=== PATIENT | male | born 1975 | race Caucasian/White ===

== ENCOUNTER 2023-05-23 14:47 | Inpatient (IN) | payer OTHER, SELFPAY ==
[2023-05-23] VITALS (26 sets, daily range): BP systolic 78–158; BP diastolic 25–131; BMI 19.3; BMI 16.9
--- NOTE | 2023-05-23 12:28 | EDRN ---
Dr. Maya in room w/ pt at this time.
[2023-05-23 12:31] LABS: Glucose - Point of Care 152 mg/dl (70-99)
[2023-05-23] MEDS: DILAUDID 0.5 MG IV (12:37)
[2023-05-23] MEDS: COMPAZINE 10 MG IV (12:39)
[2023-05-23 12:41] LABS: ALT (SGPT) 38 U/L (0-50); AST (SGOT) 83 U/L (17-59); Albumin 4.8 g/dl (3.5-5.0); Alcohol None Detected; Alkaline Phosphatase 92 U/L (38-126); Blood Urea Nitrogen 29 mg/dl (9-20); Calcium 10.5 mg/dl (8.4-10.2); Carbon Dioxide 22 mmol/L (22-30); Chloride 105 mmol/L (98-107); Glucose 174 mg/dl (70-99); Potassium 3.9 mmol/L (3.5-5.1); Sodium 140 mmol/L (135-145); Total Bilirubin 1.5 mg/dl (0.2-1.3); Total Protein 8.7 g/dl (6.3-8.2); eGFR > 60.00
[2023-05-23 12:42] LABS: % Basophils 0.1 % (0-2); % Eosinophils 0.1 % (0-6); % Immature Granulocytes 1.2 % (0-0.5); % Lymphocytes 6.2 % (20.5-51.1); % Monocytes 8.5 % (1.7-9.3); % Neutrophils 83.9 % (42.2-75.2); Absolute Immature Granulocytes 0.3 10^3/uL (0-0.05); Absolute Lymphocytes 1.3 10^3/uL (1.2-3.4); Absolute Monocytes 1.8 10^3/uL (0.1-0.6); Absolute Neutrophils 17.7 10^3/uL (1.4-6.5); Hematocrit 44.9 % (39.0-52.0); Hemoglobin 15.6 g/dL (13.0-18.0); Mean Corp Hgb Conc. 34.7 g/dL (33.0-37.0); Mean Corpuscular Hgb 28.6 pg (27.0-31.0); Mean Corpuscular Volume 82.2 fL (80.0-94.0); Mean Platelet Volume 10.5 fL (7.4-10.4); Nucleated Red Blood Cells % 0 % (-); Platelet Count 406 10^3/uL (130-400); Red Blood Cell Count 5.46 10^6/uL (4.70-6.10); Red Cell Dist. Width 14.1 % (11.5-14.5); White Blood Cell Count 21.1 10^3/uL (4.8-10.8)
[2023-05-23] MEDS: PROTONIX IV 80 MG IV (12:48)
[2023-05-23] MEDS: SANDOSTATIN 50 MCG IV (12:50)
[2023-05-23] MEDS: PROTONIX 250 IV (12:51)
--- NOTE | 2023-05-23 13:20 | ED.GENMED ---
History of Present Illness
General
Chief Complaint: Abdominal Symptoms
Source: patient
Exam Limitations: none
Time Seen by Provider: 05/23/23 12:25
Nursing documentation reviewed up to this point in time: agreed with
Travel History
Have you had any contact with someone who has COVID-19?: No
Do you have any symptoms of coronavirus? Fever > 100 degrees, chills, cough, shortness of breath, sore throat, loss of taste or smell, muscle aches, or headache?: No
History of Present Illness
History of Present Illness:
Patient with history of diabetes, presents to ED accompanied by nursing home guards secondary to persistent abdominal pain radiating to the back, associated with multiple vomiting episodes since yesterday. Patient states that his vomitus appeared to be
'dark and red'. Denies chest pain or shortness of breath. Patient also states that he he feels as though he is going through withdrawal, with last use of fentanyl, Xanax, and alcohol yesterday. Patient has had similar symptoms in the past related
to withdrawal, but states that his symptoms are more severe and he has never noted blood in the past. Denies bloody bowel movements. Denies trauma. Denies fever or chills. Denies recent illness. Denies recent change in medications or diet.
Denies dizziness. Denies previous history of cardiac disease. Patient does smoke daily.
Review of Systems
Review of Systems
Allergies reviewed?: Yes
All Other Systems: ROS reviewed and negative except as documented in HPI and ROS
Constitutional: Reports no symptoms
EENT: Reports no symptoms
Respiratory: Reports no symptoms; Denies trouble breathing
Cardiac: Reports no symptoms; Denies chest pain
ABD/GI: Reports abdominal pain, nausea and vomiting
: Reports no symptoms
Musculoskeletal: Reports no symptoms
Skin: Reports no symptoms
Neurological: Reports no symptoms; Denies headache, weakness or numbness
Phy Exam
Physical Exam
Physical Exam:
Physical Exam
General: moderate distress, acutely ill. afebrile. cachetic. tachycardic.
Head: nc/at. eomi
Neck: supple. no meningeal signs.
Heart: tachycardic, no murmur. equal radial pulses.
Lungs: no acute respiratory distress. clear bilaterally
Abdomen: normal bowel sounds. mild diffuse tenderness without distention. rectal exam: brown stool, heme negative
Neuro: alert and oriented. no focal neurological deficits
Skin: no rash
Psychiatric: well kept. interactive and cooperative
Extremities: no edema. no calf tenderness.
Course
Orders/Labs/Results
Orders:
Orders
05/23/23 Lunch
NPO
Allow oral meds: Yes
Allow clear liquids: No
NPO with Ice Chips: No
05/23/23 12:02
Electrocardiogram (*1) Urgent
Reason for Study: Chest Pain
Cardiac Monitoring- Treatment ONCE
EKG- Treatment ONCE
IV Insert/Care/Rem.- Treatment PRN
05/23/23 12:15
Alcohol Urgent
Complete Blood Count/With Diff Urgent
Comprehensive Metabolic Panel Urgent
Lipase Urgent
Comment: ADD ON
Magnesium Urgent
Comment: ADD ON
Troponin I Urgent
05/23/23 12:26
Add On- LAB Urgent
Tests Added?: magnesium, lipase
05/23/23 12:33
Prochlorperazine [Compazine] 10 mg .ROUTE .STK-MED ONE
05/23/23 12:36
HYDROmorphone [Dilaudid] 0.5 mg IV NOW STA
05/23/23 12:37
HYDROmorphone [Dilaudid] 0.5 mg IV NOW STA
Octreotide Acetate [Sandostatin] 600 mcg 0.9% Sodium Chloride 500 ml [Nss] 500 ml IV NOW
Octreotide [Sandostatin] 50 mcg IV NOW STA
Pantoprazole [Protonix IV] 80 mg IV NOW STA
Prochlorperazine [Compazine] 10 mg IV NOW STA
05/23/23 12:38
Pantoprazole 200 mg/250 ml Nss [Protonix] 200 mg in 250 ml IV NOW
05/23/23 12:43
Octreotide [Sandostatin] 50 mcg .ROUTE .STK-MED ONE
Pantoprazole [Protonix IV] 80 mg .ROUTE .STK-MED ONE
05/23/23 13:00
Electrocardiogram (*1) Urgent
Reason for Study: Chest Pain
EKG- Treatment ONCE
05/23/23 13:11
CT Chest/abd/pelvis Angio W/wo Urgent
Comment:
Reason For Exam: severe abdominal pain
05/23/23 13:29
Echo 2D MMode Color/Doppler Urgent
Reason for Study: Abnormal troponin
05/23/23 13:33
Fentanyl Citrate/Pf [Sublimaze] 50 mcg IV NOW STA
05/23/23 13:43
Type+Screen Routine
BBK Wristband Number:
05/23/23 14:06
Piperacillin/Tazo 3.375 Gram [Zosyn] 3.375 gram in 50 ml IV NOW
Vancomycin 1 Gram/200 ml [Vancocin] 1 gram in 200 ml IV NOW
05/23/23 14:33
COVID-19 Antigen Routine
Source: Nasal Swab
05/23/23 14:34
Admit/Transfer Patient As Directed
Co-Sign Provider:
Level of Care: Inpatient admission
Assign to:: IMU- Intermediate Care
Physician / Group: Aiden Turcios
Diagnosis: Drug withdrawal, ACS, hematemesis
Reason for Hospitalization: Drug withdrawal, ACS, hematemesis
Expected length of stay greater than two midnights?: Yes
ELOS- Estimated Length of Stay in days: 4
I certify the patient meets the requirements for IP care: Yes
05/23/23 14:36
Code Status As Directed
Resuscitation Status: Full Code
05/23/23 14:42
Heparin 1000 Units/500 ml [Heparin] 1,000 units in 500 ml .ROUTE .STK-MED
Lidocaine HCl/Pf [Xylocaine-Mpf 1% Vial] 50 mg .ROUTE .STK-MED ONE
Verapamil Injectable [Isoptin/Verapamil Injection] 5 mg .ROUTE .STK-MED ONE
05/23/23 14:43
Heparin Sodium,Porcine/Ns/Pf [Heparin 2000 Units/1000 ml] 2,000 unit in 1,000 ml .ROUTE .STK-MED
Nitroglycerin [Tridil] 1,500 mcg .ROUTE .STK-MED ONE
05/23/23 14:51
Blood Culture Q30M
ANGELICA Source: Blood/Venous
Specimen Description:
05/23/23 14:59
Hgba1c [Glycohemoglobin (HgbA1c)] Routine
Lactic Acid Q4H
Comment: CANCEL 2nd LACTIC ACID IF 1st LACTIC ACID IS LESS THAN 2
Blood Culture Q30M
ANGELICA Source: Blood/Venous
Specimen Description:
05/23/23 16:57
0.9% Sodium Chloride 1000 ml [Nss] 1,000 ml IV 100 mls/hr
0.9% Sodium Chloride [Nss (Preservative Free)] See Protocol IV PRN PRN
Acetaminophen [Tylenol] 650 mg PO Q4HPRN PRN
Buprenorphine [Subutex] 8 mg SL PRN PRN
Dextrose 50%-Water [Dextrose 50% Syringe] 12.5 grams IV [id number] PRN
FOLic ACID [Folvite] 1 mg 0.9% Sodium Chloride 50 ml [Nss] 50 ml IV DAILYPRN
Glucagon [GlucaGen] 1 mg IM PRN PRN
Lorazepam [Ativan] 1 mg IV Q1HPRN PRN
Lorazepam [Ativan] 1 mg IV Q2HPRN PRN
Lorazepam [Ativan] 2 mg IV Q1HPRN PRN
Ondansetron Injectable [Zofran] 4 mg IV Q6HPRN PRN
Thiamine Injection 200 mg IV Q8
05/23/23 16:57
Activity As Directed
Activity Level: As Tolerated
Bedside Glucose Monitoring As Directed
Frequency: AC&HS
Comment: Change to q6h if pt on TPN, tube feeding or not eating
Clinical Opioid Withdrawal Scale (COWS) .PRN
MSAS SCORE As Directed
MSAS Score 0-4: Repeat MSAS every 2 hours until 0-4 for three consecutive assessments, then every 4 hours x 48
hours.
MSAS Score 5-7: For MILD withdrawl symptoms. Repeat MSAS and RASS every 2 hours
MSAS Score 8-11: For MODERATE withdrawal symptoms. Repeat MSAS and RASS every 1 hour. Consider ICU or IMU
level of care.
MSAS Score > 11: For SEVERE withdrawal symptoms. Repeat MSAS and RASS every 1 hour. Notify provider, consider
ICU level of care.
MSAS Additional Instructions: If no improvement or no decrease in score from severe to moderate within 12
hours, consult psychiatry
MSAS Notify Provider: Notify provider if patient requires more than 10 mg of Lorazepam in eight hour period.
Pneumatic Compression Sleeves As Directed
Type: Knee high
Vital Signs As Directed
Frequency: Per unit guidelines
DX Deep Vein Thrombosis Video Routine
05/23/23 18:00
Clonidine [Catapres] 0.1 mg PO Q6
Insulin Aspart Corrective Low [Novolog Flexpen-Low Resistance] See Protocol SC Q6
05/23/23 18:25
INR [Prothrombin Time] Routine
Lactic Acid Q4H
Comment: CANCEL 2nd LACTIC ACID IF 1st LACTIC ACID IS LESS THAN 2
PTT Routine
05/23/23 19:31
Urine Drug Abuse Screen Routine
Date Specimen was Collected: 05/23/23
Time Specimen was Collected: 19:31
05/24/23 04:33
Complete Blood Count/No Diff IN AM
Comprehensive Metabolic Panel IN AM
05/24/23 08:00
FOLic ACID [Folvite] 1 mg PO DAILY
05/24/23 09:00
Buprenorphine [Subutex] 16 mg SL ONCE ONE
05/24/23 11:00
Buprenorphine [Subutex] 4 mg SL ONCE PRN PRN
05/25/23 06:00
Complete Blood Count/No Diff IN AM
Comprehensive Metabolic Panel IN AM
05/25/23 08:00
Buprenorphine [Subutex] See Dose Instructions SL DAILY
05/26/23 06:00
Complete Blood Count/No Diff IN AM
Comprehensive Metabolic Panel IN AM
05/26/23 20:00
Thiamine HCl [Vitamin B1] 100 mg PO BID
Abnormal Lab Results
05/23/23 05/23/23
12:15 12:29
WBC 21.1 H 10^3/uL
(4.8-10.8)
Plt Count 406 H 10^3/uL
(130-400)
MPV 10.5 H fL
(7.4-10.4)
Abs Immat Gran (auto) 0.3 H 10^3/uL
(0-0.05)
Absolute Neuts (auto) 17.7 H 10^3/uL
(1.4-6.5)
Absolute Monos (auto) 1.8 H 10^3/uL
(0.1-0.6)
Immature Gran % 1.2 H %
(0-0.5)
Neutrophils % 83.9 H %
(42.2-75.2)
Lymphocytes % 6.2 L %
(20.5-51.1)
BUN 29 H mg/dl
(9-20)
Creatinine 0.6 L mg/dL
(0.7-1.3)
Glucose 174 H mg/dl
(70-99)
Calcium 10.5 H mg/dl
(8.4-10.2)
Total Bilirubin 1.5 H mg/dl
(0.2-1.3)
AST 83 H U/L
(17-59)
Troponin I 6.860 H* ng/ml
Total Protein 8.7 H g/dl
(6.3-8.2)
POC Glucose 152 H mg/dl
(70-99)
05/23/23 12:15
05/23/23 12:15
Vital Signs
Initial and Last Documented VS:
Initial Vital Signs
Temp
97.5 F
05/23/23 11:56
Last Documented Vital Signs
Temp Pulse Resp BP Pulse Ox
100.4 F H 119 37 119/98 98
05/24/23 08:05 05/24/23 07:30 05/24/23 07:30 05/24/23 07:30 05/24/23 07:30
MDM/Problems Addressed
MDM/Problems Addressed:
Patient evaluated immediately upon arrival in his room. Patient found to be uncomfortable, tachycardic, and complaining of severe mid abdominal pain radiating to the back, with nausea sensation. History and exam concerning for active withdrawal
versus GI bleed versus dissection versus ACS.
Patient started on Protonix and octreotide drip, as well as administration of pain medication and IV fluids.
Initial EKG with tachycardia along with ST elevation noted on anterior leads. However, secondary to clinical concern for dissection without any acute chest pain, STEMI alert not activated.
Stat CT angiogram of chest abdomen pelvis ordered. Discussed with cardiology, , in light of elevated troponin. Will order bedside echocardiogram.
CT angio chest/abd/pel: no dissection, with possible b/l pneumonia. Abx ordered.
Blood cx pending.
Bedside echo completed.
Pt evaluated in ED by and (hatchery laborer) - will proceed to SPEECH PATHOLOGY TEACHER.
Critical care statement: A total of 100 minutes of critical care time was provided for this patient. This includes management of unstable vital signs, evaluation of the patient at bedside, reviewing the patient's pertinent medical records,
discussion with consultants, review of old EKGs and review of pertinent medical records. This time with separate from time utilized to perform the aforementioned documented procedures
*Critical Care Note
Total Time (30-74mins, 75-104mins- exclusive of procedures): 100 min
ED Attending Note
-
Portions of this chart may have been created with voice recognition software.� Occasional wrong word or��sound alike� substitutions may have occurred due to the inherent limitations of voice recognition software.
Discharge Plan
Departure
Patient Disposition: Admit
Date of Disposition: 05/23/23
Time of Disposition: 13:50
Presentation/result/management discussed w/ accepting MD/DO: Hospitalist
Condition: Critical
Discharge Problem:
GI bleed, Abdominal pain, Abnormal cardiac enzyme level
Interventions
Interventions:
*Risk Screen - Suicide Last Done: 05/23/23 11:49
*General Assessment Last Done: 05/23/23 11:49
*Neglect/Abuse Screening Last Done: 05/23/23 11:49
ED- Fall Risk Assessment Last Done: 05/23/23 13:00
*ED COVID-19 Vaccine History Last Done: 05/23/23 12:30
*Nursing Disposition Last Done: 05/23/23 15:10
AC-Yarshu-Cfbqbakfui Assessment Last Done: 05/23/23 13:00
ED- Neurological Assessment Last Done: 05/23/23 13:00
ED-Psychological Assessment Last Done: 05/23/23 15:00
Discharge Date and Time
Discharge Date/Time: 05/23/23 15:10
[2023-05-23 13:21] LABS: Lipase 158 U/L (23-300)
[2023-05-23] MEDS: SANDOSTATIN 500.600000000000023 MCG IV (13:35)
--- NOTE | 2023-05-23 13:42 | CON.CAR ---
Addendum entered and electronically signed by Chidi Dick MD 05/23/23 16:16:
I saw and examined the patient.
The ACCOUNT MAINTENANCE REPRESENTATIVE's note was reviewed and I agree with the note.
Comment: 47-year-old male with hypertension and type 2 diabetes mellitus who presented to the emergency department with a chief complaint of abdominal pain.� Initial ECG concerning for acute ischemia, CT r/o dissection, taken to laboratory director and found
to have no obstructive CAD. The etiologies for his severe NICMO are possible stress induced (Takotsubo AGRI BUSINESS AGENT) vs alcohol or other drug related AGRI BUSINESS AGENT vs idiopathic NICMO. However, his LVEDP was severely elevated in the laboratory director and a [place] catheter
was placed.
- IV diuresis with [place]
- GDMT when able to tolerate
- Severe abdominal/back pain and withdrawal per primary
Original Note:
Consultation
Consultation Request
Date/Time Consultation Requested: 05/23/23 13:45
Date/Time Consultation Performed: 05/23/23 13:45
Requesting Provider: Dr. Maya
Performing Provider: DEMETRIUS Lindsay from Dr. Dick
Reason for Consultation: Abnormal troponin
Medical History
-
Chief Complaint: Abdominal pain
History of Present Illness:
Toribio Gross is a 47-year-old male with hypertension and type 2 diabetes mellitus who presented to the emergency department with a chief complaint of abdominal pain. His abdominal pain is located at the umbilicus. He was en route to nursing home. He
states his abdominal pain started 2 days ago and it was mild in severity. It is now severe and radiates into his back. He endorses associated hematemesis. He denies coffee-ground like emesis. He has been smoking for the past 30 years. In
addition to this he has been abusing fentanyl, Xanax, and consumes alcohol multiple times per week. EKG with anterior ST elevation. Initial troponin greater than 6. He did not have any chest pain. CT did not show dissection but did show
bilateral pneumonia. He reports he has had narcotic and benzodiazepine withdrawal before and did not have abdominal pain.
Past Medical History
Past Medical History: HTN and IDDM
Social History
Tobacco: Smoker (1/2-1 PPD x 30 years)
Alcohol: Daily
Drug: Narcotics (Fentanyl) and Other (Benzodiazepine)
Living: Other (En route to nursing home when he came to ER)
Family History
Family History: Reviewed & Not Pertinent (Denies early CAD and SCD. Father with valve replacement in 6th decade.)
Allergies / Home Medications
Allergy/AdvReac Type Severity Reaction Status Date / Time
No Known Allergies Allergy Unverified 05/23/23 12:40
Medication Instructions Recorded Confirmed Type
Novolin R FlexPen 0 - 20 unit SC AC Diabetes 05/23/23 History
clonidine HCl 0.2 mg tablet 0.2 mg PO Q6HPRN PRN withdrawal 05/23/23 05/23/23 History
symptoms
ibuprofen 600 mg tablet 600 mg PO TIDPRN PRN moderate pain 05/23/23 05/23/23 History
Review of Systems
-
History Source: Patient
All other systems: Negative unless noted
Cardiac: No Symptoms
Abdomen/GI: Abdominal Pain, Nausea and Vomiting
Physical Exam
Vital Signs
Temp Pulse Resp BP Pulse Ox
97.5 F 118 25 118/90 90
05/23/23 11:56 05/23/23 13:20 05/23/23 13:20 05/23/23 13:20 05/23/23 13:15
Lab Results
05/23/23 12:15
05/23/23 12:15
Troponin I 6.860 ng/ml H* 05/23/23 12:15
Physical Exam
General: Well Developed and Pain (abdominal [see HPI])
HEENT: Normocephalic, Anicteric and Moist Mucous Membranes
Respiratory: Rhonchi and Accessory Resp Muscle Use
Cardiac: S1/S2 and Regular Rhythm; Negative Peripheral Edema
Breast: Deferred by me
GI: Soft, Non Tender, Non Distended and Normal Bowel Sounds
Rectal: Deferred by Provider
Genito-urinary: No Costovertebral Tender
Musculoskeletal: No Clubbing, No Cyanosis and No Edema
Skin: Warm, Dry and Other (scabbing to left anticubital)
Neuro: AO x 3
Hematologic/Lymphatic: No Lymphadenopathy
Psych: Calm
Impression / Plan
-
Acute hypoxic respiratory failure
-On supplemental O2
-CT with moderate bilateral lower lobe ground-glass opacities concerning for pneumonia versus aspiration
Abnormal troponin
-Chest pain free
-Initial troponin 6.860, trend with EKG
-Defer heparin until evaluated by GI
Cardiomyopathy, type unknown
-Formal TTE report pending, EF ~20%
-Does not appear volume overloaded on exam
-Ischemic evaluation timing to be determined
Abdominal pain with hematemesis
-H/H stable
-On octreotide and Protonix drips, per GI
HTN, follow BP
Type II DM, Hgba1c pending
Intravenous narcotic abuse, last used fentanyl yesterday, averages 6�8 bags daily, cessation recommended
Benzodiazepine abuse, cessation recommended
EtOH abuse
Data Reviewed
-
EKG: Report Reviewed by me (Sinus tachycardia, lateral T wave abnormality, rate 127; Sinus tachycardia, LVH, anterior ST abnormality)
CT Scan: Report Reviewed by me (As above)
Labs: Labs Reviewed by me
[2023-05-23] MEDS: SUBLIMAZE 50 MCG IV (13:45)
--- NOTE | 2023-05-23 13:59 | EDRN ---
Francis JARAMILLO and Dr. Dick from cardiology were in to see pt. Pt is presently having an echocardiogram at [facility] at this time. Dr. Maya states pt has PNA and low EF seen so far on testing.
--- NOTE | 2023-05-23 14:24 | EDRN ---
[facility] Dr. Maya
--- NOTE | 2023-05-23 14:34 | EDRN ---
Dr. Chris in [facility] w/ pt at this time
--- NOTE | 2023-05-23 14:41 | CON.GI ---
Addendum entered and electronically signed by Lou Reynolds Do, MD 05/23/23 15:44:
I saw and examined the patient.
The EMPLOYMENT EVALUATOR/CASE MANAGER's note was reviewed and I agree with the note.
Comment: Jorge is a 47yo male prisoner with h/o heroin/fentanyl abuse who was brought in for abd pain, hematemesis and chest pains. He c/o of abdominal pain with retching and vomiting over 20 times prior to admission. He reports some bloody mucous
came up. He denies using anticoagulation but uses motrin on daily basis. He has never had EGD/colon. Exam vitals tachycardia pale cachetic M sleepy but arousable. diffuse TTP. labs reviewed Hbg 15.6. Troponin is 6 UTox pending
Impression
- Nausea/vomiting with hematemesis
Hbg is 15 suspect esophagitis or MWT in setting of drug withdrawal
CT with large stool burden may be contributor
- Polysubstance abuse
- Elevated troponin and depressed EF
- Motrin use daily
- abdominal pain
- Cachexia
Recommendations
- Agree with protonix gtt
- Serial H/H
- 2 large bore IV
- Ok to use heparin or AC if need in setting of acute coronary syndrome
- Stop octreotide drip as imaging/CT without signs of cirrhosis or varices
- NPO for now
Will follow with you. Case d/w ED physician
Original Note:
Consultation
-
Date/Time Consultation Requested: 05/23/23 1400
Date/Time Consultation Performed: 05/23/23 1500
Requesting Provider: Trevor Maya MD
Performing Provider: DEMETRIUS Hanley, Lou Chris MD
Reason for Consultation: vomiting blood, withdrawal
Medical History
Chief Complaint / HPI
Chief Complaint: abdominal pain
History of Present Illness:
Pt is a 47yo with hx polysubstance abuse with recent Fentanyl and heroin use 2 days ago, prior lumbar lami, cervical surgery for MRSA infection, DM with presentation to ER from [facility] with multiple symptoms of abdominal pain,
hematemesis, tachycardia, leukocytosis and elevated troponin. In reviewing with patient no hx prior liver disease. He does admits to multiple episodes of vomiting blood. He was taking Motrin 600mg BID for last 2 years. He also has abdominal
pain 10/10 for past 2 days. No similar pain in past.
He admits to occasional dysphagia since neck surgery and GERD with tums PRN. He denies diarrhea, constipation or rectal bleeding. No hx EGD or colonoscopy in past. No prior GI bleed.
Past Medical History
Past Medical History: HTN, NIDDM and Other (polysubstance abuse, )
Past Surgical History: Orthopedic (lumbar lami, cerical fusion with hardware in place due to MRSA )
Social History
Tobacco: Smoker
Alcohol: None
Drug: Other (recent Heroin/fentanyl use )
Employment: Disabled
Family History
Family History: Other (father with heart value problem)
Allergies / Home Medications
Allergy/AdvReac Type Severity Reaction Status Date / Time
No Known Allergies Allergy Unverified 05/23/23 12:40
Medication Instructions Recorded
clonidine HCl 0.2 mg tablet 0.2 mg PO Q6HPRN PRN withdrawal 05/23/23
symptoms
ibuprofen 600 mg tablet 600 mg PO TIDPRN PRN moderate pain 05/23/23
insulin NPH-regular 70-30 U-100 10 unit SC BID 05/23/23
insulin 100 unit/mL subcutaneous
pen (Novolin 70-30 FlexPen U-100
Insulin)
Review of Systems
-
History Source: Patient
Constitutional: Reports Weight Loss and Fatigue
EENT: Reports No Symptoms
Cardiac: Reports Chest Pain
Abdomen/GI: Reports Abdominal Pain, Nausea and Vomiting (hematemesis)
: Reports No Symptoms
Musculoskeletal: Reports Other (chronic neck pain )
Neurological: Reports Weakness
Endocrine: Reports No Symptoms
Hematologic/Lymphatic: Reports Bleeding
Vital Signs
Temp Pulse Resp BP Pulse Ox
97.5 F 118 25 118/90 90
05/23/23 11:56 05/23/23 13:20 05/23/23 13:20 05/23/23 13:20 05/23/23 13:15
Physical Exam
Exam
General: Other (thin and cachetic in appearance with temporal waisting-- ill appearing with shortness of breath and tachycardia)
HEENT: Normocephalic
Respiratory: Clear
Cardiac: Other (tachy)
GI: Soft and Non Tender
Genito-urinary: No Costovertebral Tender
Musculoskeletal: No Clubbing and No Cyanosis
Neuro: Awake, Alert and AO x 3
Psych: Calm
Results
WBC 21.1 10^3/uL (4.8-10.8) H 05/23/23 12:15
Hgb 15.6 g/dL (13.0-18.0) 05/23/23 12:15
Hct 44.9 % (39.0-52.0) 05/23/23 12:15
MCV 82.2 fL (80.0-94.0) 05/23/23 12:15
Plt Count 406 10^3/uL (130-400) H 05/23/23 12:15
Absolute Neuts (auto) 17.7 10^3/uL (1.4-6.5) H 05/23/23 12:15
Sodium 140 mmol/L (135-145) 05/23/23 12:15
Potassium 3.9 mmol/L (3.5-5.1) 05/23/23 12:15
Chloride 105 mmol/L (98-107) 05/23/23 12:15
Carbon Dioxide 22 mmol/L (22-30) 05/23/23 12:15
BUN 29 mg/dl (9-20) H 05/23/23 12:15
Creatinine 0.6 mg/dL (0.7-1.3) L 05/23/23 12:15
Calcium 10.5 mg/dl (8.4-10.2) H 05/23/23 12:15
Total Bilirubin 1.5 mg/dl (0.2-1.3) H 05/23/23 12:15
AST 83 U/L (17-59) H 05/23/23 12:15
ALT 38 U/L (0-50) 05/23/23 12:15
Alkaline Phosphatase 92 U/L (38-126) 05/23/23 12:15
Lipase 158 U/L (23-300) 05/23/23 12:15
Diagnostic Image Results:
05/23/23CT Chest/abd/pelvis Angio W/wo
IMPRESSION: No evidence of aortic dissection.
Moderate bilateral lower lobe groundglass opacities concerning for pneumonia versus aspiration
Moderate air in the SVC probably due to recent venous access
Moderate fecal material throughout the colon
Prior GI Procedures:
EGD: pt did not recall
Colonoscopy: pt did not recall
Assessment / Plan
-
Pt is a 47yo with hx polysubstance abuse with recent prior lumbar lami, cervical surgery for MRSA infection, DM with presentation to ER from [facility] with multiple symptoms of abdominal pain, hematemesis, tachycardia, leukocytosis and
elevated troponin. In reviewing with patient no hx prior liver disease. He does admits to multiple episodes of vomiting blood. He was taking Motrin 600mg BID for last 2 years. He also has abdominal pain 10/10 for past 2 days. No similar pain
in past.
-hematemesis prior to admission
-polysubstance abuse with recent Fentanyl and heroin use 2 days ago
-increased troponin on admission with ST elevation
-hypoxemia -PNA vs aspiration on imaging
-leukocytosis/tachycardia/elevated lactate
-elevated LFT's
-wt loss/cachexia
other medical problems:
MRSA with cervical spine surgery and hardware in place with chronic pain and NSAID use daily
-lumbar lami
-DM type 2
PLAN:
Etiology of symptoms with hematemesis related to MW tear with vomiting and withdrawal, esophagitis, PUD, vs other--less likely EV with no prior hx underlying liver disease, normal platelet and albumin, INR currently pending
plan for laborer sawmill now with ST changes and elevated trop
await drug screen
PPI gtt/octreotide started in ER
consider eventual EGD but hold for now with acute cardiac issues and will need to be medically stable to proceed-- sooner if continued vomiting
blood cx pending with leukocytosis
LFT elevation likely related to substance abuse cont to trend, add hepatitis panel in AM
NSAID, heroin, fent abstinence
NPO
cont abx for possible PNA on imaging
rx for withdrawal per medical team
will follow
-
-
Thank you for consultation and allowing me to participate in the patient's care. Please call the superintendent gas distribution GI physician during the after hours with any questions or concerns.
--- NOTE | 2023-05-23 14:43 | HPS.HSE ---
Addendum entered and electronically signed by Aiden Turcios MD 05/23/23 14:59:
Correction : no abx provided, to be started after blood culture collected
Original Note:
Family Physician
-
Family Physician: * NONE
Chief Complaint
-
Chest discomfort/shortness of breath/abdominal pain/nausea/vomiting
History of Present Illness
Patient is a 47-year-old old male with history of insulin-dependent diabetes mellitus, history of IVDA with fentanyl, alcohol and tobacco abuse was brought into ER after patient having new onset of chest discomfort/shortness of breath/abdominal
pain/nausea/vomiting. Patient was being transferred to intermediate when symptoms started. Patient have been using IV fentanyl and injects himself in neck vein usually. Patient have used fentanyl 48 hours back. Denies of having any withdrawal problems
in the past. Patient started having new onset of sternal/upper back chest pain associated with nausea and vomiting. Patient in mild distress in ER rapid evaluation. Feeling short of breath and on oxygen through nasal cannula. No associated cough
or fever reported. Abdominal pain diffuse mainly in upper epigastric area. Had 1 episode of vomiting which was coffee-ground in color. Denies of having history of previous GI bleed in the past.
Evaluation in ER showing patient having elevated troponin of 6, cardiology evaluated emergently bedside with an echocardiogram. Patient planning to go to heart cath. GI has evaluated as well and cleared patient to be started on anticoagulation if
needed from cardiac perspective.
Medical History
Past Medical History
Past Medical History: Reports Other
Additional Past Medical History:
insulin-dependent diabetes mellitus, history of IVDA with fentanyl, alcohol and tobacco abuse
Past Surgical History: Reports Other
Social History
Tobacco: Smoker (Half pack/day)
Alcohol: Daily (5-6 drinks)
Drug: Narcotics (xanax) and IVDA (Fentanyl)
Family History
Family History: Not pertinent
Allergies / Home Medications
Allergies reflects when Allergies were last updated in [facility].
Home Medications with original date entered in [facility]
Allergy/Medication List:
Allergies
Allergy/AdvReac Type Severity Reaction Status Date / Time
No Known Allergies Allergy Unverified 05/23/23 12:40
Home Medications
clonidine HCl 0.2 mg tablet 0.2 mg PO Q6HPRN PRN withdrawal symptoms 05/23/23
ibuprofen 600 mg tablet 600 mg PO TIDPRN PRN moderate pain 05/23/23
insulin NPH-regular 70-30 U-100 insulin 100 unit/mL subcutaneous pen (Novolin 70-30 FlexPen U-100 Insulin) 10 unit SC BID 05/23/23
Review of Systems
-
A 12 point ROS was completed and negative except as noted: Yes
Physical Exam
Vital Signs
Vital Signs
Temp Pulse Resp BP Pulse Ox
97.5 F 118 25 118/90 90
05/23/23 11:56 05/23/23 13:20 05/23/23 13:20 05/23/23 13:20 05/23/23 13:15
Physical Exam
General: Appears in Distress and Cachectic
HEENT: Oxygen
Respiratory: Clear
Cardiac: S1/S2, Regular Rhythm and Tachycardia
GI: Soft, Non Distended, Normal Bowel Sounds and Tender; No Organomegaly
Musculoskeletal: No Clubbing, No Cyanosis and No Edema
Skin: No Rash
Neuro: Awake, Alert, Oriented and Nonfocal/grossly intact
Psych: Calm
Laboratory Results
-
05/23/23 12:15
05/23/23 12:15
Laboratory Results
Total Bilirubin 1.5 mg/dl (0.2-1.3) H 05/23/23 12:15
AST 83 U/L (17-59) H 05/23/23 12:15
ALT 38 U/L (0-50) 05/23/23 12:15
Alkaline Phosphatase 92 U/L (38-126) 05/23/23 12:15
Troponin I 6.860 ng/ml H* 05/23/23 12:15
Lipase 158 U/L (23-300) 05/23/23 12:15
Data Reviewed
-
Diagnostic Radiology: Image Personally Visualized and interpreted and Discussed with Patient
Lab Data: Labs Reviewed by me and Discussed with Patient
Impression/Plan
-
CTA chest/abd/pelvis
No evidence of aortic dissection.
Moderate bilateral lower lobe groundglass opacities concerning for pneumonia versus aspiration
Moderate air in the SVC probably due to recent venous access
Moderate fecal material throughout the colon

1. ACS/NSTEMI
-Acute onset of chest discomfort/shortness of breath abdominal pain and nausea vomiting
-EKG showing sinus tachycardia without significant ST segment elevation
-Bedside echo done by cardiology, official report pending
-CTA chest ruled out any dissection.
-Troponin of 6, follow-up troponin ordered
-Patient going to get emergent left heart catheterization.
-Discussed with GI and cleared to be started on anticoagulation/heparin drip if needed
2. Nausea and vomiting
Upper GI bleed
-Patient had coffee-ground emesis following transported to ER
-Current hemoglobin of 15, monitor
-Patient was started on pantoprazole and octreotide drip
-discussed with GI and to be monitored.
3. IV drug use
Opioid withdrawal
-Patient uses IV fentanyl. Injects himself in neck veins. Hal on both upper and lower extremity on exam as well
-Urine drug screen ordered
-Last used 48 hours back. COWS protocol with buprenorphine dose ordered
-Awaiting tizanidine with cardiac issues, clonidine with hold parameters ordered
4. Leukocytosis without fever
Possible aspiration pneumonitis
-Rule out any bacteremia with history of IV drug use
-2 sets of blood culture ordered (already got abx)
-CT chest showing bilateral basal infiltrate. Cover for possible aspiration pneumonitis with Zosyn
5. Alcohol abuse
-Monitor for alcohol withdrawal with MSAS/Ativan protocol ordered
6. IDDM
-Patient on Novolin 70/30 10 units twice daily at home. Compliance questionable
-Check globin A1c in morning
-Maintain on insulin sliding scale with further addition of Lantus if patient glucose elevated.
7. Cachectic
-Suspecting mild to moderate protein calorie malnutrition
DVT PPX - scd
Full code
Total time spent : 78 mins
I personally saw and examined the patient.
I have reviewed all diagnostic interpretations and treatment plans as written.
Time includes patient management by me, time spent at the patients bedside, time to review lab and imaging results, discussing patient care, documentation in the medical record, and time spent with the family or caregiver and discussing care plan
with RN/Consultants.
[2023-05-23 14:57] LABS: COVID-19 Antigen Negative (Negative)
--- NOTE | 2023-05-23 15:10 | EDRN ---
Report called to Uzma COHEN in vascular part of medical laboratory manager.
[2023-05-23 15:23] LABS: Lactic Acid 2.8 mmol/L (0.7-2.0)
[2023-05-23 17:19] LABS: Glucose - Point of Care 171 mg/dl (70-99)
--- NOTE | 2023-05-23 17:26 | PTCARENOTE ---
[facility] IF PT is being discharged, please notify [facility]er[facility] critical care hospitalagricultural engineering technicians and also [facility] Police, prior to discharge, also if PT attempts elopement please notify
[2023-05-23] MEDS: TYLENOL 1000 MG PO (18:16)
[2023-05-23] MEDS: ULTRAM 50 MG PO (18:17)
[2023-05-23] MEDS: ATIVAN 1 MG IV (18:19)
[2023-05-23] MEDS: NSS (PRESERVATIVE FREE) 0.5 ML IV (18:20)
[2023-05-23] MEDS: ZOSYN 50 IV (18:39)
[2023-05-23] MEDS: NSS 1000 IV (18:39)
[2023-05-23] MEDS: THIAMINE INJECTION 200 MG IV (18:39)
[2023-05-23] MEDS: CATAPRES 0.100000000000000006 MG PO (18:40)
[2023-05-23 18:43] LABS: INR 1.57
[2023-05-23 18:44] LABS: Lactic Acid 2.8 mmol/L (0.7-2.0)
[2023-05-23 18:46] LABS: APTT 31.3 Sec (23.4-35.0)
--- NOTE | 2023-05-23 19:00 | PTCARENOTE ---
Received pt from laborer high density press into rm [id number] @ approx 1715. R radial air band in place. R hand mottled, red/purple skin; R rad pulse intact; R hand cool/ cap refill >2 sec; Dr. Dick, aware. Pt. drowsy, oriented to self/situation; required
reorientation to time/place. C/O severe abd pain and generalized pain in bones- Dr. Turcios aware, further orders received see MAR. Anxious/restless/forgetful. MSAS/COWS performed- see flow sheet. Attempted to pull @ lines/tubes. B Wynn aware
and further orders received for restraints- see flow sheet. ST on monitor. Spo2 97% on NRB. NPO ex meds. Int nausea. Erwin in place. Generalized scabbing. R IJ w IVF @ 100mL/hr; PAP and CVP measurements via cordis, transduced, calibrated, and
monitored; all ports patent and secured. L AC w octreotide gtt; R FA w protonix gtt. Bed alarm active. Hand off given to nightshift RN.
--- NOTE | 2023-05-23 19:39 | ITS.CL.CATH ---
Film Maker - Catheterization
Cardiac Catheterization
Procedure Report:
CARDIAC CATHETERIZATION REPORT
Date of Procedure: 05/23/2023
Referring: Chidi Dick M.D.
Indication: New cardiomyopathy, concern for cardiogenic shock versus ST elevation myocardial infarction.
PROCEDURE:
1. Right heart catheterization.
2. Left heart catheterization.
3. Coronary angiography.
4. Left ventriculography.
ACCESS:
6 Finnish right radial artery.
8 Finnish right internal jugular vein using a modified Seldinger technique with a micropuncture kit under ultrasound guidance.
CATHETERS:
1. 7.5 Finnish [place]Christine.
2. 5 Finnish JL 3.5.
3. 5 Finnish JR4.
4. 5 Finnish angled pigtail.
HEMODYNAMIC DATA
Weight (kg): 64.4
AO (s/d/x mmHg): 125/103/112
LV (s/x mmHg): 126/44
PCWP (a/v/x mmHg): 46/46/44
PA (s/d/x mmHg): 50/41/43
RV (s/x mmHg): 50/17
RA (a/v/x mmHg): 20/20/17
SVC SvO2 (%): 48.8
PA SvO2 (%): 50.1
SaO2 (%): 93.0
Hbg (g/dL): 15.8
CO (L/min): 2.50
CI (L/min/m2): 1.36
TPG (mmHg): 1
PVR (Márquez Units): 0.4
SVR (dynes*seconds*cm^-5): 3040
AVO2 Diff (Volume %): 9.21
AV gradient (x, mmHg): None.
AV area (cm2): Normal.
LEFT VENTRICULOGRAPHY: Performed in [place] projection. Severely dilated left ventricle. With preservation of the anterior and inferior base but severe hypokinesis to akinesis of the entire mid and distal ventricle. Left ventricular ejection
fraction estimated at 10-15%. There is no significant mitral valve regurgitation. There is no evidence of aortic valve insufficiency.
CORONARY ANGIOGRAPHY
Dominance: Right.
Left Main: Normal size, bifurcating vessel, there is no coronary artery disease.
LAD: Normal size vessel giving rise to 1 significant diagonal. There is no coronary artery disease.
Ramus: Congenitally absent.
Circumflex: Normal size, nondominant vessel giving rise to 1 significant obtuse marginal. There are minor luminal irregularities.
RCA: Normal size, dominant vessel. There is no coronary artery disease.
INTERVENTIONS
None.
Closure Device: Vascular band for the right radial artery.
Radiation dose (mGy): 206
DAP (cm2.Gy): 17.77
Fluoroscopy time (minutes): 4.1
Sedation time (minutes): 22
CONCLUSIONS:
1. Right dominant circulation with no coronary artery disease.
2. Cardiogenic shock (LVEDP = 44 mmHg, PCWP = 44 mmHg, cardiac index 1.36 L/min/m�).
3. Severe systolic cardiomyopathy with preservation of the basal anterior and inferior perrin with near akinesis of the entire remainder of the ventricle. Left ventricular ejection fraction 10-15%.
RECOMMENDATIONS:
1. Expectant management after cardiac catheterization via right radial/right internal jugular approach.
2. Limited weight bearing on the right wrist for one week.
3. Initiate diuresis and inotropic support as indicated.
4. Guideline directed medical therapy when hemodynamics and blood pressure will tolerate.
5. Absolute abstention from any substance abuse.
Copy to: Chidi Dick M.D.
Keyshawn Rouse DO, FACC, FACP
[2023-05-23] MEDS: ATIVAN 2 MG IV ×3 (19:50→22:46)
--- NOTE | 2023-05-23 20:00 | PTCARENOTE ---
Patient received in bed, AAOx2, not to time. Restless, tremors noted, restraints applied for safety. Sinus Tachycardia on monitor with rates into the 14s0, temp noted, blood pressure as documented. palpable pulses throughout, no edema noted.
Lungs diminished with crackles bibasilar, pulse ox 94% on simple mask. + tachypnea. Abdomen soft with positive bowel sounds. Thermister kirby draining yellow urine. Multiple scabbed areas on arms and legs and neck. RIJ Cordis with IVF infusing
as ordered, [place] Christine catheter, hemodynamic calculations completed. Right forearm IV with protonix gtt infusing as ordered. Left arm PIVs flushed and patent.
[2023-05-23 20:03] LABS: Amphetamines Negative (Negative); Barbiturates Negative (Negative); Benzodiazepines Positive (Negative); Buprenorphine Negative (Negative); Cocaine Positive (Negative); Methadone Negative (Negative); Methamphetamines Negative (Negative); Opiates Negative (Negative); Phencyclidine Negative (Negative)
[2023-05-23 20:04] LABS: Marijuana Negative (Negative); Tricyclic Antidepressants Negative (Negative)
[2023-05-23] MEDS: SUBUTEX 8 MG SL ×2 (20:06→22:46)
[2023-05-23 20:24] LABS: Fentanyl, Urine Positive (Negative)
[2023-05-23] MEDS: NOVOLOG FLEXPEN-LOW RESISTANCE 1 UNITS SC (20:36)
--- NOTE | 2023-05-23 21:00 | PTCARENOTE ---
Patient switched from simple mask to 15L midflow by respiratory
[2023-05-23] MEDS: NSS (PRESERVATIVE FREE) 1 ML IV (21:17)
[2023-05-23 21:38] LABS: Hematocrit 45.2 % (39.0-52.0); Hemoglobin 15.9 g/dL (13.0-18.0); Mean Corp Hgb Conc. 35.2 g/dL (33.0-37.0); Mean Corpuscular Hgb 28.8 pg (27.0-31.0); Mean Corpuscular Volume 81.7 fL (80.0-94.0); Mean Platelet Volume 10.2 fL (7.4-10.4); Platelet Count 385 10^3/uL (130-400); Red Blood Cell Count 5.53 10^6/uL (4.70-6.10); Red Cell Dist. Width 14.1 % (11.5-14.5); White Blood Cell Count 19.3 10^3/uL (4.8-10.8)
[2023-05-23 21:50] LABS: Blood Urea Nitrogen 38 mg/dl (9-20); Calcium 9.2 mg/dl (8.4-10.2); Carbon Dioxide 23 mmol/L (22-30); Chloride 106 mmol/L (98-107); Estimated Creatinine Clearance 103 ml/min; Glucose 143 mg/dl (70-99); Magnesium 1.9 mg/dl (1.6-2.3); Potassium 3.3 mmol/L (3.5-5.1); Sodium 143 mmol/L (135-145); eGFR > 60.00
[2023-05-23] MEDS: KCL 100 IV (21:57)
--- NOTE | 2023-05-23 22:01 | PTCARENOTE ---
Labs noted, orders received
[2023-05-23] MEDS: MAGNESIUM SULFATE 100 IV (22:34)
[2023-05-23 23:15] LABS: Glucose - Point of Care 123 mg/dl (70-99)
[2023-05-24] VITALS (43 sets, daily range): BP systolic 104–134; BP diastolic 75–106; BMI 17.1
[2023-05-24] MEDS: TYLENOL PO (00:46)
[2023-05-24] MEDS: CATAPRES PO ×5 (00:46→17:39)
[2023-05-24] MEDS: NOVOLOG FLEXPEN-LOW RESISTANCE SC ×4 (00:46→17:46)
[2023-05-24] MEDS: THIAMINE INJECTION 200 MG IV ×3 (00:47→16:21)
[2023-05-24] MEDS: ATIVAN 2 MG IV (00:47)
[2023-05-24] MEDS: ZOSYN 50 IV ×4 (00:54→17:44)
[2023-05-24] MEDS: OFIRMEV 100 IV ×4 (01:36→19:39)
[2023-05-24] MEDS: ATIVAN 1 MG IV ×7 (02:19→22:34)
--- NOTE | 2023-05-24 02:38 | PTCARENOTE ---
Pt assessed, given PRN ativan per MSAS scale. IV tylenol given for tmax 101.5 as pt not safe to swallow pills at this time. VSS, pt oriented to self.
[2023-05-24] MEDS: NSS 1000 IV (03:23)
--- NOTE | 2023-05-24 04:00 | PTCARENOTE ---
Pt reassessed, continued on MSAS and COWS, ativan given per protocol. labs drawn. no other changes in assessment
--- NOTE | 2023-05-24 04:00 | PTCARENOTE ---
pt reassessed, VSS, continues on gtts for BP support. pt turning independently, see mar for med administrations.
[2023-05-24 04:46] LABS: Hematocrit 47.2 % (39.0-52.0); Hemoglobin 16.3 g/dL (13.0-18.0); Mean Corp Hgb Conc. 34.5 g/dL (33.0-37.0); Mean Corpuscular Hgb 28.7 pg (27.0-31.0); Mean Corpuscular Volume 83.2 fL (80.0-94.0); Mean Platelet Volume 10.4 fL (7.4-10.4); Platelet Count 346 10^3/uL (130-400); Red Blood Cell Count 5.67 10^6/uL (4.70-6.10); Red Cell Dist. Width 14.3 % (11.5-14.5); White Blood Cell Count 21.8 10^3/uL (4.8-10.8)
[2023-05-24 05:18] LABS: ALT (SGPT) 32 U/L (0-50); AST (SGOT) 118 U/L (17-59); Alkaline Phosphatase 71 U/L (38-126); Blood Urea Nitrogen 45 mg/dl (9-20); Calcium 8.9 mg/dl (8.4-10.2); Carbon Dioxide 21 mmol/L (22-30); Chloride 111 mmol/L (98-107); Estimated Creatinine Clearance 103 ml/min; Glucose 134 mg/dl (70-99); Magnesium 2.4 mg/dl (1.6-2.3); Potassium 3.6 mmol/L (3.5-5.1); Sodium 142 mmol/L (135-145); Total Bilirubin 1.2 mg/dl (0.2-1.3); Total Protein 6.1 g/dl (6.3-8.2); eGFR > 60.00
[2023-05-24 05:40] LABS: Hepatitis B Surface Antigen Negative (Negative)
[2023-05-24 05:45] LABS: Hepatitis B Core Ab, IgM Negative (Negative)
[2023-05-24 05:57] LABS: Hepatitis B Core Ab, Total Negative (Negative); Hepatitis B Surface Antibody Negative; Hepatitis C Antibody Reactive (Negative)
[2023-05-24 06:23] LABS: Hepatitis A Antibody, Total Positive (Negative)
[2023-05-24] MEDS: LR 1000 IV (06:53)
[2023-05-24] MEDS: FOLVITE PO (07:55)
[2023-05-24] MEDS: NSS (PRESERVATIVE FREE) 0.5 ML IV ×2 (08:10→15:20)
--- NOTE | 2023-05-24 08:29 | W.PN.CD ---
Addendum entered and electronically signed by Chidi Dick MD 05/24/23 10:10:
I saw and examined the patient.
The COLLEGE ADMINISTRATOR's note was reviewed and I agree with the note.
Comment: 47-year-old male with hypertension and type 2 diabetes mellitus and active drug use ~2 days prior to admission who presented to the emergency department with a chief complaint of abdominal pain, however, found to have b/l PNA, non-ischemic
myocardial injury, NICMO with EF of 15-20% on TTE likely either Takotsubo DAY CARE SUPERVISOR vs alcohol/drug induced DAY CARE SUPERVISOR, and acute hypoxic RF likely from PNA.
- [place] Christine in place PA pressures have normalized and CVP is normal
- overall does not appear volume overloaded
- remains tachycardic likely in combination from sepsis and withdrawal
- GDMT limited for now until above resolve
Original Note:
Today's Communication / Plan
-
Continue supportive care
He is agreeable to allowing us to update his next of kin, , Patricia
Impression / Plan
-
Acute hypoxic respiratory failure, in the setting of PNA
-On 15L nasal cannula
-CT with moderate bilateral lower lobe ground-glass opacities concerning for pneumonia versus aspiration
Non-ischemic myocardial injury in the setting of acute illness
-Chest pain free
-Troponin peaked at 15.800
NICM
HFrEF (EF 15-20%)
-Possible Takotsubo DAY CARE SUPERVISOR with basal and apical sparing hypokinesis
-Cardiac catheterization 05/23/23 without CAD
-Hemodynamics pending (swan)
Abdominal pain with hematemesis
-H/H stable, per GI
HTN, follow BP
Type II DM, Hgba1c pending
Polysubstance abuse, (intravenous narcotic, cocaine, & benzodiazepines), last used fentanyl 05/22/23, averages 6�8 bags daily, cessation recommended
EtOH abuse
Physical Exam
Vital Signs/Labs
Vital Signs
Temp Pulse Resp BP Pulse Ox
100.4 F H 119 37 119/98 98
05/24/23 08:05 05/24/23 07:30 05/24/23 07:30 05/24/23 07:30 05/24/23 07:30
05/23/23 05/24/23 05/25/23
06:59 06:59 06:59
Actual Weight 57.1 kg
05/24/23 04:33
05/24/23 04:33
PT 19.0 Sec (11.4-14.6) H 05/23/23 18:25
INR 1.57 05/23/23 18:25
APTT 31.3 Sec (23.4-35.0) 05/23/23 18:25
APTT Cancelled 05/23/23 18:25
Magnesium 2.4 mg/dl (1.6-2.3) H 05/24/23 04:33
LAB Results
05/23/23 05/23/23 05/23/23
12:15 18:25 21:29
Troponin I 6.860 H* 11.000 H* D 15.800 H* D
05/24/23 05/24/23
06:20 07:14
Troponin I Cancelled 14.800 H*
Physical Exam
Constitutional: No acute distress and Comfortable
EENT: Anicteric and Moist mucous membranes
Cardiovascular: Rhythm & rate is regular, Pedal edema is absent, S1S2 is normal and Murmur/rub/gallop absent
Respiratory: Labored respirations and Rhonchi Present
GI: Soft, Distention absent, Flat, Non tender and Normal bowel sounds
Neuro/Psych: AO x 3
Other: Skin (warm and dry) and Cath Site (no hematoma)
Data Reviewed
-
Date of Service: May 24, 2023
EKG: Report Reviewed by me
Echo: Report Reviewed by me
Labs: Labs Reviewed by me
Old Records: Reviewed
--- NOTE | 2023-05-24 08:30 | PTCARENOTE ---
Received pt @ change of shift. Lethargic s/p sedation from MSAS- see JUN. Eye opening to tactile stim, eye contact <10 sec. MSAS/COWS maintained-see flow sheet. Restraints remain in place to avoid pt from pulling out lines- see doc. ST on monitor,
HR 110-120's. Troponin peaked, cards made aware @ bedside, no further trending per cards. SpO2 98% on 15LF. Tachypneic into 30's. Diminished breaths sounds posteriorly. +BS, cachectic, unable to admin PO meds d/t lethargy, NPO maintained. Inc
soft/brown BM, no s/s of active bleeding. Int nausea, no vomiting. Erwin in place draining yellow urine, decreased urine output, Dr. Turcios and Hieu aware. Scattered scabbed area on skin PEAR PICKER. R radial s/p card cath w dressing c/d/i, no hematoma
or bruising noted. R IJ cordis w LR @ 75mL/hr; swan tati catheter w PAP and CVP hemodynamic measurements. CI/CO calculated and relayed to MD team. #22 L hand, #20 L FA, # 20 R AC patent, dressing c/d/i.
--- NOTE | 2023-05-24 08:31 | CON.INTV ---
Consultation
Consultation Request
Date/Time Consultation Requested: 05/23/2023 1710
Date/Time Consultation Performed: 05/24/2023 0824
Requesting Provider: Dr. Turcios
Performing Provider: Dr. Hagen
Reason for Consultation: Tachycardia, UGIB, alcohol withdrawal with concern for DT
Medical History
-
Chief Complaint: Chest pain, shortness of breath, nausea, vomiting
History of Present Illness:
47-year-old male past medical history of DM type II, IV drug abuse with fentanyl (6-8 bags/day) and tranq, tobacco use disorder and alcohol use disorder who presents with acute onset of chest pain, shortness of breath as well as nausea, vomiting and
belly pain. Apparently patient was being arrested by [place] police and being transferred to senior care when his symptoms began. Patient says and endorses injecting himself in the neck with fentanyl with last use 48 hours ago. His chest pain is
substernal and upper back associated with nausea/vomiting. No cough or fevers reported. Abdominal pain is in his upper abdomen and he had coffee-ground emesis in the ER. No history of GI bleed in the past. Initial troponin was elevated at 6.8,
LFTs also elevated with total bilirubin 1.5, AST 83, lipase WNL at 158. Creatinine normal at 0.6 but BUN elevated 29. Hb 15.6 and no transfusion was given to the patient. Patient brought to [facility] where he underwent a right and left heart
catheterization and coronaries appeared clean with no evidence of CAD. LVEDP was severely elevated at 44 mmHg with an elevated PCWP at 44, and a low cardiac index at 1.36. Left ventriculography showed an LVEF of 10-15% with no significant mitral
valve regurgitation. There was also preservation of the basal anterior and inferior perrin with near akinesis of the entire remainder of the ventricle suspicious for Takotsubo's cardiomyopathy. [place]ine catheter left in place, PPI was started in
addition to octreotide and patient was brought to the ICU for further care with lithographic camera operator services consulted for additional management/recommendations.
When I saw the patient he was in bed, sleeping, had just received Ativan prior to me seeing him, with heart rate in the 110s. He is arousable to voice but then goes right back asleep. No obvious tremors, no evidence of pain or discomfort.
PMHx: DM type II, IV drug abuse, tobacco use disorder and alcohol use disorder, hypertension
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
Past Medical History
Past Medical History: Other (Above as per HPI)
Past Surgical History: Other (Above as per HPI)
Social History
Tobacco: Smoker (0.5 PPD)
Alcohol: Daily (5-6 drinks per day)
Drug: Narcotics and IVDA (Fentanyl and suspected tranq)
Family History
Family History: Reviewed & Not Pertinent
Allergies / Home Medications
Allergies
Allergy/AdvReac Type Severity Reaction Status Date / Time
No Known Allergies Allergy Unverified 05/23/23 12:40
Home Medications
Medication Instructions Recorded Confirmed Last Taken Type
clonidine HCl 0.2 mg tablet 0.2 mg PO Q6HPRN PRN withdrawal 05/23/23 05/23/23 Unknown History
symptoms
ibuprofen 600 mg tablet 600 mg PO TIDPRN PRN moderate pain 05/23/23 05/23/23 Unknown History
insulin NPH-regular 70-30 U-100 10 unit SC BID 05/23/23 05/23/23 Unknown History
insulin 100 unit/mL subcutaneous
pen (Novolin 70-30 FlexPen U-100
Insulin)
Review of Systems
-
Unable to Obtain full review of systems at this time due to: Acuity (Patient lethargic & I am unable to obtain accurate ROS at this time)
Vitals / Labs / Diagnostic Testing
Vital Signs
Temp Pulse Resp BP Pulse Ox
100.4 F H 119 37 119/98 98
05/24/23 08:05 05/24/23 07:30 05/24/23 07:30 05/24/23 07:30 05/24/23 08:27
Lab Data
05/24/23 04:33
Laboratory Results
05/23/23 05/23/23
18:25 18:25
PT 19.0 H
INR 1.57
APTT 31.3 Cancelled
Diagnostic Testing:
Physical Exam
-
HEENT: Normocephalic and Anicteric
Cardiovascular: Peripheral Edema (negative) and Other (tachycardic)
Respiratory: Clear, Wheeze (negative), Rales (negative), Rhonchi (negative) and Accessory Resp Muscle Use (negative)
GI: Soft, Non Distended, Non Tender and Normal Bowel Sounds
Neurology: Tremors (negative) and Other (lethargic but arousable, answers my questions but inappropriately)
Skin: Warm and Dry
General: Comfortable and Chills (negative)
Assessment
-
Assessment: 47-year-old male past medical history of DM type II, IV drug abuse with fentanyl (6-8 bags/day) and tranq, tobacco use disorder and alcohol use disorder who presents with acute onset of chest pain, shortness of breath as well as nausea,
vomiting and belly pain. Apparently patient was being arrested by [place] police and being transferred to senior care when his symptoms began. Patient says and endorses injecting himself in the neck with fentanyl with last use 48 hours ago. His chest
pain is substernal and upper back associated with nausea/vomiting. No cough or fevers reported. Abdominal pain is in his upper abdomen and he had coffee-ground emesis in the ER. No history of GI bleed in the past. Initial troponin was elevated
at 6.8, LFTs also elevated with total bilirubin 1.5, AST 83, lipase WNL at 158. Creatinine normal at 0.6 but BUN elevated 29. Hb 15.6 and no transfusion was given to the patient. Patient brought to [facility] where he underwent a right and left
heart catheterization and coronaries appeared clean with no evidence of CAD. LVEDP was severely elevated at 44 mmHg with an elevated PCWP at 44, and a low cardiac index at 1.36. Left ventriculography showed an LVEF of 10-15% with no significant
mitral valve regurgitation. There was also preservation of the basal anterior and inferior perrin with near akinesis of the entire remainder of the ventricle suspicious for Takotsubo's cardiomyopathy. [place]Christine catheter left in place, PPI was
started in addition to octreotide and patient was brought to the ICU for further care with lithographic camera operator services consulted for additional management/recommendations.
Impression:
#Acute cardiogenic pulmonary edema due to acute HFrEF exacerbation- resolved s/p diuresis and he is now euvolemic with normal PA pressures
#Acute respiratory failure with hypoxemia - due to above; low suspicion for pneumonia
#Alcohol withdrawal complicated by DT
#Opioid withdrawal with fentanyl use and suspected tranq use
#Sinus tachycardia - expected response in setting of DT and acute stress
# Elevated troponin with anterior ST elevations - LHC shows clean coronaries hence ST changes due to suspected Takotsubo's CM
#UGIB - stable - I suspect this was more a [place] tear however PUD still on differential given his elevated BUN with normal Cr
#HFrEF now euvolemic s/p diuresis -suspected Takotsubo's cardiomyopathy with basal and apical sparing hypokinesis
#Lactic acidosis
Plan:
- change PPI gtt to BID; GI on board
- cardiology on board - recs appreciated
- trend UOP and maintain MAP>65, ideally would want >75 to improve perfusion to kidneys
- gentle hydration
- continue MSAS and subutex protocol
- avoid giving ativan if he remains lethargic/obtunded
- Once pt stabilized and leukocytosis improved and afebrile for >24-48 hrs then will start GDMT as BP and Cr tolerate
- Monitor HR and if >140 then check EKG
- continue broad spectrum ABx and if cultures negative with improving WBC then will narrow ABx over next 1-2 days and do short course as I do not suspect he is septic
- trend lactate until <2mmol/L
- check and trend procal (altough can be elevated in acute cardiac disease)
- maintain euglycemia with goal BG 140-180
- Ok for SCDs; if Hb stable by tomorrow with no signs of bleeding then will start LMWH
Continue ICU level care for this critically ill patient.
Critical care statement (Patient seen and evaluated on 05/24/2023): A total of 40 minutes of critical care time was provided for this patient today. This includes management of unstable vital signs, evaluation of the patient at bedside, reviewing the
patient's pertinent medical records including radiographs, microbiology, laboratory evaluations, and discussion with primary team, consultants, pharmacy, nutrition, physical therapy, case management, charge nurse, critical care nursing, and
respiratory therapy.
Lines:
#Right JOVANY amanda placewd 05/23/2023
#Rip placed 05/23/2023
--- NOTE | 2023-05-24 08:43 | W.PN.HOSP.TC ---
Today's Communication/Plan
-
see note
Assessment / Plan
Assessment / Plan
CTA chest/abd/pelvis
No evidence of aortic dissection.
Moderate bilateral lower lobe ground-glass opacities concerning for pneumonia versus aspiration
Moderate air in the SVC probably due to recent venous access
Moderate fecal material throughout the colon

1. Nonischemic cardiomyopathy
Systolic HF - no signs of exacerbation
Type II NV from IV cocaine use
-Acute onset of chest discomfort/shortness of breath abdominal pain and nausea vomiting
-EKG showing sinus tachycardia without significant ST segment elevation
-TTE in ER showing EF 15-20%
-CTA chest ruled out any dissection.
-Troponin max of 15.8, trending down now
-[facility] official report pending - no clear obstructive disease
2. Acute hypoxic respiratory failure
- repeat CXR and ABG ordered
- o2 requirement increased to 15 L thorough midflow
- getting anuric.
2.� Nausea and vomiting
� � Upper GI bleed
-Patient had coffee-ground emesis following transported to ER
-Hbg remains normal at 15-16.
-on PPI, not on octreotide drip
-GI evaluated and cleared for use of Blood thinners if indicated.
3. IV drug use
� � Opioid withdrawal
-UDS positive for cocaine and fentanyl
-Patient uses IV fentanyl.� Injects himself in neck veins.� Hal on both upper and lower extremity on exam as well
-Last used 48 hours back. COWS protocol with buprenorphine dose ordered
-Hold tizanidine with cardiac issues, clonidine with hold parameters ordered
4.� Leukocytosis without fever
�� � Possible aspiration pneumonitis
-Rule out any bacteremia with history of IV drug use
-2 sets of blood culture ordered (already got abx)
-CT chest showing bilateral basal infiltrate.� Cover for possible aspiration pneumonitis with Zosyn
-Check UA/Urine cs
-Adding vancomycin to regimen.
5. Alcohol abuse
-Monitor for alcohol withdrawal with MSAS/Ativan protocol ordered
6. IDDM
-Patient on Novolin 70/30 10 units twice daily at home.� Compliance questionable
-Check globin A1c in morning
-Maintain on insulin sliding scale with further addition of Lantus if patient glucose elevated.
7. Cachectic
-Suspecting mild to moderate protein calorie malnutrition
8. Oligouria
-recheck cr later today
-cant push more IVF with Low EF and high o2 need
DVT PPX - lovenox
Full code
Discussed care with cardiology
Total Critical Care Time 40 minutes. I was immediately available to the patient and staff. I personally examined, reviewed labs, diagnostic images/reports, interpretations, treatment plans, discussed patient care with other providers and family
or caregivers (if patient is unable to make decisions), entered orders as appropriate and documented the medical record.
Anticipated Discharge: > 48 hours
Subjective/Interval History
-
Date of Service: May 24, 2023
patient sedated
remains febrile through night
BP soft, remains in sinus tachycardia
on 15 L o2 through NC
no reported gi bleed/vomiting, last emesis coffee brown
urine output is decreasing. kirby in place.
Objective Data
-
Labs:
Laboratory Results
05/23/23 05/24/23
21:29 04:33
WBC 19.3 H 21.8 H
Hgb 15.9 16.3
Hct 45.2 47.2
Plt Count 385 346
Sodium 143 142
Potassium 3.3 L 3.6
Chloride 106 111 H
Carbon Dioxide 23 21 L
BUN 38 H 45 H
Creatinine 0.7 0.7
Glucose 143 H 134 H
Calcium 9.2 8.9
Total Bilirubin 1.2
AST 118 H
ALT 32
Alkaline Phosphatase 71
Vital Signs:
Vital Signs
Temp Pulse Resp BP Pulse Ox
100.4 F H 119 37 119/98 98
05/24/23 08:05 05/24/23 07:30 05/24/23 07:30 05/24/23 07:30 05/24/23 08:27
I&O
05/23/23 05/24/23 05/25/23
06:59 06:59 06:59
Intake Total 1350 / 1435 170 / 170
Output Total 1085 / 1090 5 / 5
Balance 265 / 345 165 / 165
Review of Systems
-
Unable to obtain full review of systems at this time due to: Acuity
Physical Exam
-
General: Cachectic; Negative Respiratory Distress or Appears in Distress
HEENT: Oxygen (15 L NC)
Respiratory: Clear to Auscultation
Cardiac: Regular Rhythm, S1/S2 and Tachycardic
GI: Soft and Nondistended
Musculoskeletal: No Edema
Neuro: Negative Awake, Alert or Oriented
--- NOTE | 2023-05-24 09:17 | PHA.VAN.IN ---
Assessment
- Assessment
Renal Function: Unknown baseline (SCR likley close to baseline but BUN elevated)
Concomitant Antimicrobials: piperacillin/tazobactam
Plan
- Plan
Initial / Loading Dose: Vanc 1500mg x1 now then 500mg at 1800
Maintenance Regimen: dosing by level given elevated BUN
Monitorin/24 0600
MRSA Screen: Ordered per protocol
Pharmacokinetics Vancomycin I
- -
Patient Age: 47
Patient Sex: Male
Vancomycin Day #: 1
Indication: Other
Requesting Provider: Dr. Turcios
Pertinent Antimicrobial Allergies:
NKDA
Height / Weight:
Height 6 ft
Actual Weight 57.1 kg
IBW in k.6
Pertinent Past Medical History: BMI ~17, IV UBALDO, DM
- Vital Signs / Lab Results
Temp Pulse Resp BP Pulse Ox
100.4 F H 119 37 119/98 98
05/24/23 08:05 05/24/23 07:30 05/24/23 07:30 05/24/23 07:30 05/24/23 08:27
Lab Results - Hematology
05/23/23 05/23/23 05/24/23
12:15 21:29 04:33
WBC 21.1 H 19.3 H 21.8 H
Lab Results - Chemistry
05/23/23 05/23/23 05/24/23
12:15 21:29 04:33
BUN 29 H 38 H 45 H
Creatinine 0.6 L 0.7 0.7
Estimated Creat Clear 103 103
Albumin 4.8 3.0 L D
05/23/23 05/23/23
14:59 18:25
Lactic Acid 2.8 H 2.8 H
[2023-05-24 09:36] LABS: B.E. -1.2 mmol/L; HCO3 21.3 mmol/L (21-28); PCO2 30 mmHg (35-48); PO2 148 mmHg (83-108); pH 7.46 (7.35-7.45)
[2023-05-24 09:49] LABS: Glycohemoglobin (HgbA1c) 6.3 % (4.0-5.6)
[2023-05-24] MEDS: FOLVITE 50.2000000000000028 MG IV (09:52)
[2023-05-24 10:29] LABS: Urine Albumin Trace (Neg - Trace); Urine Bilirubin Negative (Negative); Urine Character Clear (Clear); Urine Color Yellow; Urine Glucose Negative (Negative); Urine Ketone Trace (Negative); Urine Leukocyte Negative (Negative); Urine Nitrite Negative (Negative); Urine Occult Blood Trace (Negative); Urine Urobilinogen Negative (Neg - 1+)
[2023-05-24] MEDS: VANCOCIN 300 MG IV (11:01)
[2023-05-24] MEDS: VANCOCIN 300 ML IV (11:01)
[2023-05-24 11:32] LABS: Urine White Cell 16-20 /HPF (0-5)
[2023-05-24 11:33] LABS: Urine Bacteria Moderate (Negative)
[2023-05-24 11:35] LABS: Urine Red Blood Cell 0-2 /HPF (0-2)
[2023-05-24 11:53] LABS: Glucose - Point of Care 107 mg/dl (70-99)
--- NOTE | 2023-05-24 12:00 | PTCARENOTE ---
Pt.'s O2 weaned to 8LMF, SpO2 96%. Remains tachypneic into 30's @ x's. MSAS per protocol-see flow sheet. Pt. reassessed, no changed in previous assessment. Restraints remain in place and bed alarm active.
[2023-05-24] MEDS: SUBUTEX 16 MG SL (12:36)
[2023-05-24 12:39] LABS: Lactic Acid 1.4 mmol/L (0.7-2.0)
--- NOTE | 2023-05-24 13:03 | W.PN.GI.CBS2 ---
Addendum entered and electronically signed by Memo Canchola MD 05/24/23 13:11:
GI will sign off. Please call us back if any question
Original Note:
Today's Communication / Plan
-
Protonix 40 mg IV twice daily
Assessment / Plan
-
Pt is a 47yo with hx polysubstance abuse with recent prior lumbar lami, cervical surgery for MRSA infection, DM with presentation to ER from [facility] with multiple symptoms of abdominal pain, hematemesis, tachycardia, leukocytosis and
elevated troponin. In reviewing with patient no hx prior liver disease. He does admits to multiple episodes of vomiting blood. He was taking Motrin 600mg BID for last 2 years. He also has abdominal pain 10/10 for past 2 days. No similar pain
in past.
-hematemesis prior to admission-currently resolved
-polysubstance abuse with recent Fentanyl and heroin use 2 days ago
-increased troponin on admission with ST elevation. S/p cardiac cath 05/23-nonobstructive
-hypoxemia -PNA vs aspiration on imaging
-leukocytosis/tachycardia/elevated lactate -possible sepsis
-elevated LFT's
-wt loss/cachexia
other medical problems:
MRSA with cervical spine surgery and hardware in place with chronic pain and NSAID use daily
-lumbar lami
-DM type 2
PLAN:
No further episodes of vomiting or bleeding. Hemoglobin stable
Change Protonix to 40 mg twice daily
No acute GI intervention at this point
Continue further management as per medical team
Total Time Spent with Patient (in minutes): 35
Subjective
Subjective
Date of Service: May 24, 2023
Patient is lethargic-currently being managed for DT. No further vomiting /bleeding as per RN.on 15 l oxygen via NC
Objective
Data Reviewed
Laboratory Data:
Laboratory Results
05/24/23 04:33
Laboratory Results
PT 19.0 Sec (11.4-14.6) H 05/23/23 18:25
INR 1.57 05/23/23 18:25
APTT 31.3 Sec (23.4-35.0) 05/23/23 18:25
APTT Cancelled 05/23/23 18:25
Magnesium 2.4 mg/dl (1.6-2.3) H 05/24/23 04:33
Total Bilirubin 1.2 mg/dl (0.2-1.3) 05/24/23 04:33
AST 118 U/L (17-59) H 05/24/23 04:33
ALT 32 U/L (0-50) 05/24/23 04:33
Alkaline Phosphatase 71 U/L (38-126) 05/24/23 04:33
Lipase 158 U/L (23-300) 05/23/23 12:15
Vital Signs and I&O:
Vital Signs
Temp Pulse Resp BP Pulse Ox
99.4 F 111 37 115/92 96
05/24/23 11:56 05/24/23 12:15 05/24/23 12:15 05/24/23 12:00 05/24/23 12:15
I&O
05/23/23 05/24/23 05/25/23
06:59 06:59 06:59
Intake Total 1350 / 1435 380 / 380
Output Total 1085 / 1090 75 / 75
Balance 265 / 345 305 / 305
Physical Exam
Physical Exam
GI: Soft and Non Distended
[2023-05-24 13:04] LABS: Procalcitonin 0.46 ng/ml (0.0-0.25)
--- NOTE | 2023-05-24 16:11 | CM ---
CM following re: discharge planning.
Discussed in Rounds, reviewed pt's chart, met with pt.
Pt is a 47 year old male, admitted with primary dx of Nonischemic cardiomyopathy, Acute hypoxic respiratory failure.
Per chart review, pt was admitted from [facility] and was released. pt is not a great historian, no family members/friends listed on the chart.
Initial assessment is not completed due to lack of information. CM is searching for family members/friends.
[2023-05-24 17:04] LABS: Blood Urea Nitrogen 43 mg/dl (9-20); Calcium 8.4 mg/dl (8.4-10.2); Carbon Dioxide 23 mmol/L (22-30); Chloride 115 mmol/L (98-107); Estimated Creatinine Clearance 122 ml/min; Glucose 120 mg/dl (70-99); Potassium 3.5 mmol/L (3.5-5.1); Sodium 141 mmol/L (135-145); eGFR > 60.00
[2023-05-24 17:58] LABS: Glucose - Point of Care 95 mg/dl (70-99)
--- NOTE | 2023-05-24 18:00 | PTCARENOTE ---
Pt.'s O2 weaned to 2LNC, SpO2 96%, tolerating wean. Pt. reassessed, no changes in previous assessment.
[2023-05-24] MEDS: VANCOCIN HCL 500 MG 100 IV (18:14)
[2023-05-24] MEDS: NSS (PRESERVATIVE FREE) 10 ML IV (19:39)
[2023-05-24] MEDS: PROTONIX IV 40 MG IV (19:39)
--- NOTE | 2023-05-24 20:00 | PTCARENOTE ---
Patient received in bed, restless, oriented to self. Bilateral wrist restraints maintained. Sinus Tachycardia on monitor, afebrile, blood pressure as documented. Palpable pulses throughout, no edema noted. Lungs diminished, pulse ox 98% on 2L.
Abdomen soft with hypoactive bowel sounds. Thermister kirby draining yellow urine. RIJ Kemp with KVO infusing through cordis. All PIVs flushed and patent. Turned and repositioned
[2023-05-25] VITALS (22 sets, daily range): BP systolic 108–132; BP diastolic 80–97; BMI 17.7
--- NOTE | 2023-05-25 | PTCARENOTE ---
Patient restless, medicated per MSAS, incontinent of stool. CHG bath given
[2023-05-25] MEDS: ZOSYN 50 IV ×2 (00:19→05:38)
[2023-05-25] MEDS: THIAMINE INJECTION 200 MG IV ×4 (00:19→23:49)
[2023-05-25] MEDS: NOVOLOG FLEXPEN-LOW RESISTANCE SC ×5 (00:31→23:42)
[2023-05-25] MEDS: CATAPRES PO ×3 (00:31→11:59)
[2023-05-25 00:40] LABS: Glucose - Point of Care 104 mg/dl (70-99)
[2023-05-25] MEDS: ATIVAN 2 MG IV ×6 (01:41→22:28)
[2023-05-25] MEDS: NSS (PRESERVATIVE FREE) 1 ML IV ×2 (01:41→21:29)
[2023-05-25] MEDS: ATIVAN 1 MG IV ×5 (04:19→23:28)
[2023-05-25 04:44] LABS: Hematocrit 46.9 % (39.0-52.0); Hemoglobin 15.8 g/dL (13.0-18.0); Mean Corp Hgb Conc. 33.7 g/dL (33.0-37.0); Mean Corpuscular Hgb 28.4 pg (27.0-31.0); Mean Corpuscular Volume 84.2 fL (80.0-94.0); Mean Platelet Volume 10.9 fL (7.4-10.4); Platelet Count 311 10^3/uL (130-400); Red Blood Cell Count 5.57 10^6/uL (4.70-6.10); Red Cell Dist. Width 14.3 % (11.5-14.5); White Blood Cell Count 20.5 10^3/uL (4.8-10.8)
[2023-05-25 05:39] LABS: Vancomycin Random 9.2 ug/ml
[2023-05-25 06:02] LABS: ALT (SGPT) 36 U/L (0-50); AST (SGOT) 109 U/L (17-59); Alkaline Phosphatase 71 U/L (38-126); Blood Urea Nitrogen 45 mg/dl (9-20); Calcium 8.7 mg/dl (8.4-10.2); Carbon Dioxide 22 mmol/L (22-30); Chloride 118 mmol/L (98-107); Estimated Creatinine Clearance > 125 ml/min; Glucose 101 mg/dl (70-99); Magnesium 2.4 mg/dl (1.6-2.3); Potassium 3.8 mmol/L (3.5-5.1); Sodium 145 mmol/L (135-145); Total Bilirubin 0.9 mg/dl (0.2-1.3); eGFR > 60.00
[2023-05-25] MEDS: LR 1000 IV (07:40)
[2023-05-25] MEDS: FOLVITE 1 MG PO (07:41)
[2023-05-25] MEDS: NSS (PRESERVATIVE FREE) 10 ML IV ×2 (07:41→19:55)
[2023-05-25] MEDS: PROTONIX IV 40 MG IV ×2 (07:41→19:55)
[2023-05-25] MEDS: SUBUTEX 4 MG SL (07:42)
--- NOTE | 2023-05-25 08:11 | W.PN.CD ---
Today's Communication / Plan
-
Start lisinopril 2.5 mg daily.
Start dapagliflozin 10 mg daily.
DC Fabius-Christine Catheter.
Avoid beta blockers.
Impression / Plan
-
Impression/Plan: 47 y/o male with DM, HTN and polysubstance abuse admitted with acute hypoxic respiratory failure and EKG changes, found to have bilateral PNA, severe non-ischemic cardiomyopathy and decompensated heart failure to the point of
cardiogenic shock.
#Acute hypoxic respiratory failure
-Multifactorial from PNA and acute HFrEF.
-CT with moderate bilateral lower lobe ground-glass opacities concerning for pneumonia versus aspiration.
-CXR shows some improvement and O2 requirement down to 2LNC.
-BCx = NGTD. Influenza negative. COVID negative.
-Continue to treat for PNA and HF.
-Wean oxygen as able.
#Non-ischemic myocardial injury
-In the setting of acute illness.
-Chest pain free.
-Troponin peaked at 15.800.
#NICM
-Acute on chronic.
-Ventricle is severely dilated, suggesting some chronicity to this process.
-DDx includes Takotsubo from stress of withdrawal vs. EtOH/Polysubstance abuse vs. unrecovered viral cardiomyopathy vs. autoimmune process.
-Start GDMT as hemodynamics will tolerate.
-Avoid beta blockers given cocaine use as cocaine use while on beta blockers will lead to unopposed alpha agonism.
-Start lisinopril 2.5 mg daily.
-Start dapagliflozin 10 mg daily.
-Case management consult.
HFrEF (EF 15-20%)
-Possible Takotsubo DEPARTMENT OPERATIONS MANAGER with basal and apical sparing hypokinesis.
-Cardiac catheterization 05/23/23 without CAD.
-Hemodynamics show improvement in CI and filling pressures (interestingly, the patient has received one dose of diuretics).
-Repeat echocardiogram later in this hospitalization to assess for recovery (true septic dysfunction vs. acute decompensated from drug use?).
-D/C swan today.
#Abdominal pain with hematemesis
-Acute, stable.
-H/H stable.
-GI signed off.
#HTN
-Chronic, stable.
#Type II DM
-Chronic, stable.
-Hgba1c 6.3%.
-Adding dapgliflozin.
#Polysubstance abuse
-Chronic. EtOH + intravenous narcotic, cocaine, & benzodiazepines, last used fentanyl 05/22/23, averages 6�8 bags daily.
-Thiamine/folate given.
-Withdrawal protocol per Hospitalist.
Critical Care Time = 35 minutes.
Subjective/Interval History:
Oxygen requirement down to 2LNC.
Febrile this morning (38.1). TMax24 = 38.6.
Blood pressure stable.
CI 2.13 yesterday @ 18:59.
No further evidence of GIB. GI has signed off.
ABX started yesterday.
BCx show NGTD.
Influenza negative.
UA is abnormal (16-20 WBC's, negative nitrite/LE).
UCx pending.
Procalcitonin 0.46 (elevated).
DATA:
CXR, 05/24/2023:
IMPRESSION:
There is mild coarsening of the interstitial markings in the left perihilar region extending into the mid and lower portions of the left lung most likely reflecting incomplete resolution of pulmonary edema seen on 05/23/2023 examination. Interstitial
pneumonia is less likely.
Cardiac Catheterization, 05/23/2023:CONCLUSIONS:
1.� Right dominant circulation with no coronary artery disease.
2.� Cardiogenic shock (LVEDP = 44 mmHg, PCWP = 44 mmHg, cardiac index 1.36 L/min/m�).
3.� Severe systolic cardiomyopathy with preservation of the basal anterior and inferior perrin with near akinesis of the entire remainder of the ventricle.� Left ventricular ejection fraction 10-15%.
TTE, 05/23/2023:
CONCLUSIONS
�Mildly dilated LV with severely reduced systolic function.
�Estimated EF of 15-20%.
�Possible Takotsubo DEPARTMENT OPERATIONS MANAGER with basal and apical sparing hypokinesis.
�No LVH.
�Normal right ventricular size and function.
�Aortic valve possible calcified RCC and mild regurgitation and no significant
�stenosis.
�Mild tricuspid regurgitation.
�Estimated pulmonary artery pressure of 40 mmHg, assuming a right atrial
�pressure of 3 mmHg.
�No prior for comparison.
CTA Abd/Pelvis, 05/23/2023:
IMPRESSION:
No evidence of aortic dissection.
Moderate bilateral lower lobe groundglass opacities concerning for pneumonia versus aspiration.
Moderate air in the SVC probably due to recent venous access.
Moderate fecal material throughout the colon.
Physical Exam
Vital Signs/Labs
Vital Signs
Temp Pulse Resp BP Pulse Ox
36.9 C 100 30 125/97 99
05/25/23 04:00 05/25/23 07:45 05/25/23 07:45 05/25/23 07:00 05/25/23 07:45
05/23/23 05/24/23 05/25/23
11:59 11:59 11:59
Actual Weight 57.1 kg 59.1 kg
05/25/23 04:27
05/25/23 04:27
PT 19.0 Sec (11.4-14.6) H 05/23/23 18:25
INR 1.57 05/23/23 18:25
APTT 31.3 Sec (23.4-35.0) 05/23/23 18:25
APTT Cancelled 05/23/23 18:25
Magnesium 2.4 mg/dl (1.6-2.3) H 05/25/23 04:27
LAB Results
05/23/23 05/23/23 05/23/23
12:15 18:25 21:29
Troponin I 6.860 H* 11.000 H* D 15.800 H* D
05/24/23 05/24/23
06:20 07:14
Troponin I Cancelled 14.800 H*
Physical Exam
Constitutional: No acute distress and Comfortable
Cardiovascular: Rhythm & rate is regular, Pedal edema is absent, S1S2 is normal, Murmur/rub/gallop absent and Other (RIJ Fabius-Christine in place.)
Respiratory: Respiratory effort normal, Lungs clear to auscul., Wheeze Absent, Crackles Absent and Rhonchi Absent
GI: Soft, Distention absent, Flat, Non tender and Normal bowel sounds
Neuro/Psych: Other (Subdued, but arousable.)
Other: Cath Site (Right radial access site is C/D/I.)
Data Reviewed
-
Date of Service: May 25, 2023
Medical Decision Making: Reviewed Test Results, Independent Historian Assessment, Test Interpretation and Review of Case with other Provider
EKG: Tracing Personally Visualized and interpreted and Report Reviewed by me
Echo: Tracing Personally Visualized and interpreted and Report Reviewed by me
X-Ray/CT/US/MRI/NUC/PET: Image Personally Visualized and interpreted and Report Reviewed by me
Medical Tests (PFT, Pathology etc): Image Personally Visualized and interpreted and Report Reviewed by me
Labs: Labs Reviewed by me
[2023-05-25] MEDS: SUBUTEX 12 MG SL (09:44)
--- NOTE | 2023-05-25 09:59 | W.PN.INTV ---
Today's Communication / Plan
Recommendations
Remove [employer] and kirby
Place condom catheter on for I/O
5 days total ABx
GDMT as per cardiology
Continue MSAS and subutex protocol
Downgrade out of ICU to IMU - given he still has high nursing needs with alcohol withdrawal and should still get at least q2 hour vital signs
Pipe Chipper/pulmonary service will sign off. Thank you for allowing us to be involved in the care of this patient. Please reconsult if there are any additional questions or concerns, or if respiratory issues develop.
Assessment
-
Assessment: 47-year-old male past medical history of DM type II, IV drug abuse with fentanyl (6-8 bags/day) and tranq, tobacco use disorder and alcohol use disorder who presents with acute onset of chest pain, shortness of breath as well as nausea,
vomiting and belly pain. Apparently patient was being arrested by [employer] police and being transferred to penitentiary when his symptoms began. Patient says and endorses injecting himself in the neck with fentanyl with last use 48 hours ago. His chest
pain is substernal and upper back associated with nausea/vomiting. No cough or fevers reported. Abdominal pain is in his upper abdomen and he had coffee-ground emesis in the ER. No history of GI bleed in the past. Initial troponin was elevated
at 6.8, LFTs also elevated with total bilirubin 1.5, AST 83, lipase WNL at 158. Creatinine normal at 0.6 but BUN elevated 29. Hb 15.6 and no transfusion was given to the patient. Patient brought to [facility] where he underwent a right and left
heart catheterization and coronaries appeared clean with no evidence of CAD. LVEDP was severely elevated at 44 mmHg with an elevated PCWP at 44, and a low cardiac index at 1.36. Left ventriculography showed an LVEF of 10-15% with no significant
mitral valve regurgitation. There was also preservation of the basal anterior and inferior perrin with near akinesis of the entire remainder of the ventricle suspicious for Takotsubo's cardiomyopathy. [employer] catheter left in place, PPI was
started in addition to octreotide and patient was brought to the ICU for further care with copy clerk services consulted for additional management/recommendations.
Impression:
#Acute cardiogenic pulmonary edema due to acute HFrEF exacerbation- resolved s/p diuresis and he is now euvolemic with normal PA pressures
#Acute respiratory failure with hypoxemia - due to above; low suspicion for pneumonia
#Alcohol withdrawal complicated by DT
#Opioid withdrawal with fentanyl use and suspected tranq use
#Sinus tachycardia - expected response in setting of DT and acute stress - tachycardia now resolved
#Elevated troponin with anterior ST elevations - LHC shows clean coronaries hence ST changes due to suspected Takotsubo's CM - troponin peaked at 15.8 on 05/23/2023)
#UGIB - stable - I suspect this was more a Tiffanie-Snowden tear however PUD still on differential given his elevated BUN with normal Cr
#HFrEF now euvolemic s/p diuresis -suspected Takotsubo's cardiomyopathy with basal and apical sparing hypokinesis
#Lactic acidosis -resolved (was due to cardiogenic shock)
Plan:
- Ok to remove swan today - I confirmed this with cardiology who agrees - cardiology to continuing to follow along, and recs appreciated
- Continue PPI BID; GI on board; he eventually should receive an endoscopy to eval for varices given his Hx of alcohol abuse, as well as PUD, AVMs
- cardiology on board - recs appreciated
- trend UOP and maintain MAP>65, ideally would want >75 to improve perfusion to kidneys
- Would stop IVF given his risk for developing acute pulmonary edema given his severely low LVEF --> once he awakens and is no longer an aspiration risk, would take off restraints and allow him to eat (cardiac diet with fluid and sodium restriction)
- continue MSAS and subutex protocol
- avoid giving ativan if he remains lethargic/obtunded
- Once pt stabilized and leukocytosis improved and afebrile for >24-48 hrs then will start GDMT as BP and Cr tolerate
- continue broad spectrum ABx however would narrow ABx to cefepime; DC IV vanco given negative MRSA swab; follow up cultures; would give 5 days ABx total given no obvious source of infection found
- Trend procal to assure source control
- maintain euglycemia with goal BG 140-180
- DVT ppx: Start LMWH
Dispo: Patient stable for downgrade out of ICU to IMU. Pipe Chipper/pulmonary service will sign off. Please re-consult if there are any additional questions/concerns or if respiratory issues develop.
Lines:
#Right IJ swan placewd 05/23/2023 - removed today
#Kirby placed 05/23/2023 - can also remove today with voiding trial and condom catheter to be placed; if no urine output in 4-6 hrs then check bladder scan and straight cath if needed; if more than 2 straight cath requirements then replace kirby
Subjective Dataa
Subjective Data
Date of Service:
Date of Service: May 25, 2023
Chief Complaint: Pipe Chipper Follow Up
Subjective:
Pt seen this morning. He is sleepy but occasionally wakes up and answers questions. Heart rate much better today and it is in the 90s. No tremor seen at bedside or any signs of discomfort. Patient had a fever overnight to 100.6 �F at midnight.
Review of Systems
General: Other (Unable to obtain due to patient's clinical status -lethargic)
Objective Data
Data Reviewed
Vital Signs / I&O / Oxygen:
Vital Signs
Temp Pulse Resp BP Pulse Ox
98.8 F 95 13 121/90 99
05/25/23 08:44 05/25/23 09:15 05/25/23 09:15 05/25/23 09:00 05/25/23 09:15
Intake and Output
05/24/23 05/25/23 05/26/23
06:59 06:59 06:59
Intake Total 1350 / 1435 1260 / 1270 30 / 30
Output Total 1085 / 1090 860 / 860 150 / 150
Balance 265 / 345 400 / 410 -120 / -120
SaO2 99
Nasal Cannula flow liters per 2
minute
Physical Exam
General: Comfortable
HEENT: Normocephalic and Anicteric
Cardiovascular: S1-S2 and Peripheral Edema (Negative)
Respiratory: Clear, Wheeze (Negative), Crackles (Negative), Rhonchi (Negative) and Non-Labored Respirations
GI: Soft, Non Distended and Non Tender
Neurology: Lethargic and Other (Arousable to voice and answers questions but then falls right back asleep; no seizure-like activity; no tremors)
Skin: Warm and Dry
Labs/Micro/Reports
Lab Data
05/25/23 04:27
05/25/23 04:27
Laboratory Results
05/24/23
09:28
pH 7.46 H
pCO2 30 L
pO2 148 H
HCO3 21.3
O2 Delivery Level
Microbiology
05/24/23 10:01 Urine Urine Culture - Final
NO GROWTH
05/23/23 14:59 Blood/Venous Blood Culture - Preliminary
No Growth in 24 hours- Final report to follow
05/23/23 14:51 Blood/Venous Blood Culture - Preliminary
No Growth in 24 hours- Final report to follow
05/24/23 10:01 Nose Nasal Screen MRSA (PCR) - Final
MRSA not detected - performed by PCR methodology.
05/24/23 10:01 Nasal Swab Influenza Types A & B (TYRA) - Final
Negative for Influenza A & B, NAAT
Negative results must be combined with clinical observations
and patient history.
Nucleic Acid Amplification test (NAAT)performed on the
[employer] platform.
--- NOTE | 2023-05-25 10:15 | PTCARENOTE ---
Updated assessment, vital signs ongoing and as documented. Follow up hemodynamics unchanged. Await cardiology for swan removal orders. Motor And Generator Assembler rounds this am. Plan to deline, pt/ot therapy, evaluate for po intake and meds. Continue spd protocol.
Continue hourly rounds or more frequent patient safety checks. Continue reorientation, redirection and review events of hospitalization. Continue supportive cares and teaching. Patient either belligerent, yelling, restless than immediately asleep.
Began shift kicking and yelling pulling equipment. Continue supportive cares. Updates with hospitalist and update with critical care team in am rounds. Follow up medications via [facility] and continued updates with pharmacy team.
--- NOTE | 2023-05-25 11:57 | PN.CDI ---
CDI
- -
CDI:
Physician Documentation Request
Admit Date: 05/23/23 14:47
Dear Doctor Tam,
Please review the following and provide your response in the progress notes.
Clinical Indicators:
Pt admitted with Opioid W/D/Suspected aspiration pneumonitis/Acute Hypoxic Respiratory Failure
There is potentially conflicting documentation in the record regarding the elevated troponin dx.
Cardiology progress note 05/24,' ...non-ischemic myocardial injury...'
Progress note 05/24, ' Type II NV from IV cocaine use..'
Please provide the diagnosis that is the most correct regarding the Troponin elevation:
Type 2 NV due to cocaine use
Non NV troponin elevation
Other
Use of terms such as suspected, likely, concern for, or probable (associated with a specific diagnosis that is being evaluated, monitored, or treated as if it exists) are acceptable and can be coded in the inpatient setting, when documented at the
time of discharge.
Thank you,
Deedee Vora RN
CDI Specialist
[place] [facility]
Please use your independent medical judgment in providing your response.
[2023-05-25] MEDS: MAXIPIME 2000 MG IV ×2 (12:00→19:55)
[2023-05-25] MEDS: STERILE WATER FOR INJECTION 10 ML IV ×2 (12:00→19:55)
--- NOTE | 2023-05-25 12:07 | SUR.PHASEI ---
Cardiology invasive at bedside, Dr Rouse plan to dc swan shortly. Will follow up with molder meat plan for pt/ot, nutrition, recovery follow up needs. Patient awoke agitated demanding to get out of here, yelling at staff, verbally abusive, moved
bowels and refusing to get cleaned up, demanding food, bathroom and to 'go to [facility]'. Reorient patient to surroundings, events, and equipment(swan). Patient continues yelling attempting to remove medical equipment. Continue Cows, MSAS, and constant
redirection. Patient called in for update. Update with contacts, update social service. wishes medical staff to know patients severe drug usage stating that last time Dr's said he'd only live a few months. Also states he uses crack cocaine
and heroin constantly. States also heavy smoker, has crohn's disease and can drink heavily at times. Will update social service and attendings. Continue supportive cares.
--- NOTE | 2023-05-25 12:08 | PN.CDI ---
CDI
- -
CDI:
Physician Documentation Request
Admit Date: 05/23/23 14:47
Dear Doctor Tam,
Please review the following and provide your response in the progress notes.
Clinical Indicators:
Pt admitted with Opioid W/D/Suspected aspiration pneumonitis/Acute Hypoxic Respiratory Failure
Documented in the record BMI 17.7, Cachexia
H&P and progress notes , ' Cachectic Suspecting mild to moderate protein calorie malnutrition...'
Nutrition consult , ' ...Pt appears cachectic with severe loss of subcutaneous fat (orbital, tricep, ribcage), muscle loss (temporal, buccal, clavicle, quads). Suspect prolonged inadequate oral intake prior to admission related to drug abuse. Pt
meets criteria for mod-severe protein calorie malnutrition. Nutrition will follow diet ..'
Based on the information, which of the following most accurately represents the patient's nutritional status?
Severe Protein Calorie Malnutrition
Moderate Protein Calorie malnutrition
Other
[place] Criteria (ACP Hospitalist 2017)
2 or more criteria must be present for either
non severe or severe malnutrition
Note that the criteria differs related to the
presence of an acute or chronic illness
Acute Illness Chronic Illness
Energy Intake Non Severe: <75% for >7 days Non Severe: <75% for >1 month
Severe: <50% for >5 days Severe: <75% for >1 month
Weight Loss Non Severe: 1-2% over 1 week Non Severe: 5% over 1 month
5% over 1 month 7.5% over 3 months
7.5% over 3 months 10% over 6 months
1 year N/A 20% over 1 year
Severe: >2% over 1 week Severe: >5% over 1 month
>5% over 1 month >7.5% over 3 months
>7.5% over 3 months >10% over 6 months
1 year N/A >20% over 1 year
Body Fat Non Severe: Mild Decrease Non Severe: Mild Loss
Severe: Moderate Decrease Severe: Severe Loss
Muscle Mass Non Severe: Mild Decrease Non Severe: Mild Loss
Severe: Moderate Decrease Severe: Severe Loss
Fluid Accumulation Non Severe: Mild Accumulation Non Severe: Mild Accumulation
Severe: Moderate to severe Severe: Moderate to severe
accumulation accumulation
Reduced Electrical Subcontractor Strength Non Severe: N/A Non Severe: N/A
Severe: Measurably reduced Severe: Measurably reduced
Use of terms such as suspected, likely, concern for, or probable (associated with a specific diagnosis that is being evaluated, monitored, or treated as if it exists) are acceptable and can be coded in the inpatient setting, when documented at the
time of discharge.
Thank you,
Deedee Vora RN
CDI Specialist
[place] [facility]
Please use your independent medical judgment in providing your response.
--- NOTE | 2023-05-25 12:14 | PN.CDI ---
CDI
- -
CDI:
Physician Documentation Request
Admit Date: 05/23/23 14:47
Dear Doctor Tam,
Please review the following and provide your response in the progress notes.
Clinical Indicators:
Pt admitted with Opioid W/D/Suspected aspiration pneumonitis/Acute Hypoxic Respiratory Failure
Documented per cardiology note 05/24, ' remains tachycardic likely in combination from sepsis and withdrawal..'
On admission , WBC 21.1, Temp 101.5, HR 148, RR 55
Please update the Status of Sepsis documented by cardiology :
Sepsis -POA / still being monitored/teated
- Systemic manifestations of infection, with 2 or more SIRS criteria which include:
- Fever >100.4 degrees F or hypothermia < 96.8 degrees F
- Leukocytosis - WBC > 12,000 or leukopenia - WBC < 4,000 or > 10% bands
- Tachycardia > 90 beats per minute
- Tachypnea - RR > 20 breaths per minute or PaCO2 , 32mmHg
Source: Merck Manual 2013
Sepsis -POA resolved
Sepsis -ruled out
Other
Use of terms such as suspected, likely, concern for, or probable (associated with a specific diagnosis that is being evaluated, monitored, or treated as if it exists) are acceptable and can be coded in the inpatient setting, when documented at the
time of discharge.
Thank you,
Deedee Vora RN
CDI Specialist
[place] [facility]
Please use your independent medical judgment in providing your response.
--- NOTE | 2023-05-25 12:41 | CM ---
CM following re: discharge planning.
Discussed in Rounds, reviewed pt's chart, met with pt. Per Rounds meeting, pt remains drowsy, lethargic, continue supportive care.
CM called [facility] police department to find out whether or not they have any information regarding pt's family friends and was told they cannot release any information.
CM called [facility] to ask pt's contact information and was told they can not release any information.
CM called [place] police and was told that pt is known to them and they will contact pt's family to let them know that their loved one is at [facility].
CM received a phone call from pt's spouse Lavonne [phone] and she stated she was informed by [employer] that her is here. Pt's spouse stated that she and her have been for years, they have 3 children and children
at some point still try to be around him. Pt's spouse stated that she is in recovery and she does not want to loose her sobriety just to have him around her. Pt's spouse describe the pt as severely addicted, has been 'staying with some girls in
[place]'. Per spouse, pt stole his daughter's car, sold it and used money for drugs. Pt's spouse stated she is next of kin and she will be around to make decisions for the pt. Per spouse, pt has mother Bindu and she is in her
80th. Pt's spouse stated she was told by [place] police that pt will be discharge to [place] police custody, pt has a warrant on arrest.
Please call [place] Police at pt's discharge at [phone] and pt will be escorted by Police to a chcf.
D/C plan: [place] police custody at discharge.
CM will follow with discharge plan updates as hospitalization progresses.
--- NOTE | 2023-05-25 13:09 | W.PN.HOSP.TC ---
Today's Communication/Plan
-
continue rx for opioid/alcohol withdrawal
abx consolidated to cefepime
f/u blood cs report
Assessment / Plan
Assessment / Plan
CTA chest/abd/pelvis
No evidence of aortic dissection.
Moderate bilateral lower lobe ground-glass opacities concerning for pneumonia versus aspiration
Moderate air in the SVC probably due to recent venous access
Moderate fecal material throughout the colon
LHC
1.� Right dominant circulation with no coronary artery disease.
2.� Cardiogenic shock (LVEDP = 44 mmHg, PCWP = 44 mmHg, cardiac index 1.36 L/min/m�).
3.� Severe systolic cardiomyopathy with preservation of the basal anterior and inferior perrin with near akinesis of the entire remainder of the ventricle.� Left ventricular ejection fraction 10-15%.

1. Nonischemic cardiomyopathy
Systolic HF - no signs of exacerbation
Type II IN from IV cocaine use
-Acute onset of chest discomfort/shortness of breath abdominal pain and nausea vomiting
-EKG showing sinus tachycardia without significant ST segment elevation
-TTE in ER showing EF 15-20%
-CTA chest ruled out any dissection.
-Troponin max of 15.8, trending down now
-LHC showed no clear CAD. have low EF.
2. Acute hypoxic respiratory failure
- repeat CXR showing some persistent basal pulmonary edema or interstitial pneumonia
- o2 requirement coming down and on 2L nc, was requiring 15L through midflow.
3.� Nausea and vomiting
� � Upper GI bleed suspected Tiffanie Snowden tear
-Patient had coffee-ground emesis following transported to ER
-Continue on PPI
-Hbg remains stable, no repeat episode
-GI help appreciated
3. IV drug use
� � Opioid withdrawal
-UDS positive for cocaine and fentanyl
-Patient uses IV fentanyl.� Injects himself in neck veins.� Hal on both upper and lower extremity on exam as well
-Last used 48 hours back before ER visit. COWS protocol with buprenorphine dose ordered
-Hold tizanidine with cardiac issues, clonidine with hold parameters ordered
4.� Sepsis - POA
�� � Possible aspiration pneumonitis
-Rule out any bacteremia with history of IV drug use
-2 sets of blood culture neg.
-CT chest showing bilateral basal infiltrate.� Cover for possible aspiration pneumonitis with Zosyn
-UA/Urine cs neg.
-vanc/zosyn changed to cefepime.
5. Alcohol abuse
-Monitor for alcohol withdrawal with MSAS/Ativan protocol ordered
-MSAS Remains high and confounded by opioid withdrawal,
6. IDDM
-Patient on Novolin 70/30 10 units twice daily at home.� Compliance questionable
-A1c of 6.3
-Maintain on insulin sliding scale with further addition of Lantus if patient glucose elevated.
7. Cachectic
Sev PCM
- oral intake related
8. Oligoria - resolved
-cr remains stable
DVT PPX - lovenox
Full code
Total Critical Care Time 38 minutes. I was immediately available to the patient and staff. I personally examined, reviewed labs, diagnostic images/reports, interpretations, treatment plans, discussed patient care with other providers and family
or caregivers (if patient is unable to make decisions), entered orders as appropriate and documented the medical record.
Anticipated Discharge: 24 - 48 hours
Subjective/Interval History
-
Date of Service: May 25, 2023
Patient sedated,
On oxygen through nasal cannula
Remains tachycardic although rate better
No acute issues reported except agitation in the evening
Temperature max of 100.6 Fahrenheit in night
Objective Data
-
Labs:
Laboratory Results
05/25/23
04:27
WBC 20.5 H
Hgb 15.8
Hct 46.9
Plt Count 311
Sodium 145
Potassium 3.8
Chloride 118 H
Carbon Dioxide 22
BUN 45 H
Creatinine 0.6 L
Glucose 101 H
Calcium 8.7
Total Bilirubin 0.9
AST 109 H
ALT 36
Alkaline Phosphatase 71
Vital Signs:
Vital Signs
Temp Pulse Resp BP Pulse Ox
98.8 F 95 28 124/95 97
05/25/23 11:53 05/25/23 11:53 05/25/23 11:53 05/25/23 11:53 05/25/23 11:53
I&O
05/24/23 05/25/23 05/26/23
06:59 06:59 06:59
Intake Total 1350 / 1435 1260 / 1270 60 / 60
Output Total 1085 / 1090 860 / 860 430 / 430
Balance 265 / 345 400 / 410 -370 / -370
Review of Systems
-
Unable to obtain full review of systems at this time due to: Acuity
Physical Exam
-
General: Cachectic; Negative Respiratory Distress or Appears in Distress
HEENT: Oxygen (15 L NC)
Respiratory: Clear to Auscultation
Cardiac: Regular Rhythm, S1/S2 and Tachycardic
GI: Soft and Nondistended
Musculoskeletal: No Edema
Neuro: Negative Awake, Alert or Oriented
[2023-05-25] MEDS: ZOFRAN 4 MG IV (14:16)
--- NOTE | 2023-05-25 14:43 | PTCARENOTE ---
Dada mak Will update Hospitalist. Tolerating small sips and ice chips with complete supervision. Continue to redirect, reorient and teach patient of events of hospitalization. Reinforce plan of cares. Reinforce safety concerns. Skin cares and
follow up plan of cares with critical care team.
--- NOTE | 2023-05-25 15:37 | PTCARENOTE ---
At bedside with [facility] administrator team. Follow up plan of cares, Review with patient at bedside, reinforce plan of cares, redirect patient behaviors, possible transfer from ICU. Update with MD to make aware of family conversation. Continue skin cares and
safety rounds.
[2023-05-25] MEDS: LOVENOX 40 MG SC (17:37)
[2023-05-25] MEDS: CATAPRES 0.100000000000000006 MG PO ×2 (17:37→23:49)
[2023-05-25 18:11] LABS: Glucose - Point of Care 78 mg/dl (70-99)
--- NOTE | 2023-05-25 20:00 | PTCARENOTE ---
Patient received in bed, restless, kicking legs in the air, attempting to get OOB, yelling 'AMA'. Bilateral wrist restraints maintained, oriented x2. Sinus Tachycardia on monitor, afebrile, blood pressure as documented. Palpable pulses
throughout, no edema noted. Knee high SCDs maintained. Lungs diminished, pulse ox 99% on 2L. Abdomen soft with hypoactive bowel sounds, incontinent of stool. Able to tolerate small sips of clears. #25 condom cath applied, voiding rony urine.
Skin with multiple scabbed areas on arms and legs. Right neck dressing clean dry and intact. All PIVs flushed and patent. Turned and repositioned in bed.
[2023-05-25] MEDS: ULTRAM 50 MG PO (22:22)
[2023-05-25] MEDS: ATIVAN IV (23:50)
[2023-05-25 23:53] LABS: Glucose - Point of Care 101 mg/dl (70-99)
--- NOTE | 2023-05-25 23:59 | PTCARENOTE ---
Patient continues to be restless, attempting to get OOB, yelling out, medicated for pain as well as MSAS score. CHG bath given, turned and repositioned
[2023-05-26] VITALS (11 sets, daily range): BP systolic 110–142; BP diastolic 74–123; BMI 17.1
[2023-05-26] MEDS: NSS (PRESERVATIVE FREE) 10 ML IV ×4 (00:25→20:21)
[2023-05-26] MEDS: ATIVAN 2 MG IV ×11 (00:25→22:58)
[2023-05-26] MEDS: STERILE WATER FOR INJECTION 10 ML IV ×3 (03:09→20:21)
[2023-05-26] MEDS: MAXIPIME 2000 MG IV ×3 (03:10→20:21)
--- NOTE | 2023-05-26 04:03 | PTCARENOTE ---
Patient continues agitated, restless, uncooperative, and yelling out. Continuing to medicate per MSAS protocol. Continuing to reorient patient- not interested. Wrist restraints and bed alarm maintained.
[2023-05-26 04:23] LABS: Hematocrit 44.7 % (39.0-52.0); Mean Corp Hgb Conc. 33.6 g/dL (33.0-37.0); Mean Corpuscular Hgb 28.4 pg (27.0-31.0); Mean Corpuscular Volume 84.7 fL (80.0-94.0); Mean Platelet Volume 10.5 fL (7.4-10.4); Platelet Count 272 10^3/uL (130-400); Red Blood Cell Count 5.28 10^6/uL (4.70-6.10); Red Cell Dist. Width 14.4 % (11.5-14.5); White Blood Cell Count 14.2 10^3/uL (4.8-10.8)
[2023-05-26 04:47] LABS: ALT (SGPT) 36 U/L (0-50); AST (SGOT) 65 U/L (17-59); Albumin 2.8 g/dl (3.5-5.0); Alkaline Phosphatase 58 U/L (38-126); Blood Urea Nitrogen 46 mg/dl (9-20); Calcium 8.7 mg/dl (8.4-10.2); Carbon Dioxide 22 mmol/L (22-30); Chloride 115 mmol/L (98-107); Estimated Creatinine Clearance > 125 ml/min; Glucose 92 mg/dl (70-99); Magnesium 2.3 mg/dl (1.6-2.3); Phosphorus 3.1 mg/dl (2.5-4.5); Sodium 148 mmol/L (135-145); Total Bilirubin 0.7 mg/dl (0.2-1.3); Total Protein 5.7 g/dl (6.3-8.2); eGFR > 60.00
[2023-05-26 04:52] LABS: Potassium 3.7 mmol/L (3.5-5.1)
[2023-05-26 05:04] LABS: Procalcitonin 0.25 ng/ml (0.0-0.25)
[2023-05-26] MEDS: ULTRAM 50 MG PO ×2 (05:14→14:01)
[2023-05-26] MEDS: CATAPRES 0.100000000000000006 MG PO ×3 (05:14→17:33)
[2023-05-26] MEDS: NOVOLOG FLEXPEN-LOW RESISTANCE SC ×3 (05:26→17:53)
[2023-05-26] MEDS: LR IV (05:26)
[2023-05-26 06:13] LABS: Glucose - Point of Care 95 mg/dl (70-99)
[2023-05-26] MEDS: FOLVITE 1 MG PO (07:43)
[2023-05-26] MEDS: PROTONIX IV 40 MG IV ×2 (07:43→20:21)
[2023-05-26] MEDS: SUBUTEX 16 MG SL (07:43)
[2023-05-26] MEDS: THIAMINE INJECTION 200 MG IV (07:44)
[2023-05-26] MEDS: NSS (PRESERVATIVE FREE) 0.5 ML IV ×2 (07:56→08:59)
[2023-05-26] MEDS: ATIVAN 1 MG IV ×2 (07:56→08:59)
--- NOTE | 2023-05-26 08:00 | PTCARENOTE ---
Received pt @ change of shift. Drowsy, awakens to verbal stimuli, oriented to self/situation; require reorientation to time/place. Anxious/restless/confused; agitated @ x's thrashing in bed/yelling out, quickly resolves to resting. On MSAS
protocol- see flow sheet. SR-ST on monitor. 98% on 2LNC, weaned to RA and tolerating. +BS, abd soft/NT. Inc b/b. Mx soft/brown BMs. #[address] draining rony urine. R neck dressing c/d/i. B/L soft limb restraints and 4 rails maintained. Bed
alarm active.
--- NOTE | 2023-05-26 08:13 | W.PN.CD ---
Today's Communication / Plan
-
Monitor Na.
HFrEF does not appear decompensated.
Withdrawal per Hospitalist.
Impression / Plan
-
Impression/Plan: 47 y/o male with DM, HTN and polysubstance abuse admitted with acute hypoxic respiratory failure and EKG changes, found to have bilateral PNA, severe non-ischemic cardiomyopathy and decompensated heart failure to the point of
cardiogenic shock.
#Acute hypoxic respiratory failure
-Multifactorial from PNA and acute HFrEF.
-CT with moderate bilateral lower lobe ground-glass opacities concerning for pneumonia versus aspiration.
-CXR shows some improvement and O2 requirement down to 2LNC.
-BCx = NGTD. Influenza negative. COVID negative.
-Continue to treat for PNA and HF.
-Wean oxygen as able.
#Non-ischemic myocardial injury
-In the setting of acute illness.
-Chest pain free.
-Troponin peaked at 15.800.
#NICM
-Acute on chronic.
-Ventricle is severely dilated, suggesting some chronicity to this process.
-DDx includes Takotsubo from stress of withdrawal vs. EtOH/Polysubstance abuse vs. unrecovered viral cardiomyopathy vs. autoimmune process.
-Start GDMT as hemodynamics will tolerate.
-Avoid beta blockers given cocaine use as cocaine use while on beta blockers will lead to unopposed alpha agonism.
-Continue lisinopril and dapagliflozin.
-Case management consult.
HFrEF (EF 15-20%)
-Possible Takotsubo TYPE CASTER with basal and apical sparing hypokinesis.
-Cardiac catheterization 05/23/23 without CAD.
-Hemodynamics show improvement in CI and filling pressures (interestingly, the patient has received one dose of diuretics).
-Repeat echocardiogram later in this hospitalization to assess for recovery (true septic dysfunction vs. acute decompensated from drug use?).
-Appears compensated.
#Abdominal pain with hematemesis
-Acute, stable.
-H/H stable.
-GI signed off.
#HTN
-Chronic, stable.
#Type II DM
-Chronic, stable.
-Hgba1c 6.3%.
-Adding dapgliflozin.
#Polysubstance abuse
-Chronic. EtOH + intravenous narcotic, cocaine, & benzodiazepines, last used fentanyl 05/22/23, averages 6�8 bags daily.
-Thiamine/folate given.
-Withdrawal protocol per Hospitalist.
Critical Care Time = 35 minutes.
Subjective/Interval History:
[place]-Christine removed yesterday.
Patient continues to be agitated.
MSAS in place.
Weight stable.
Afebrile since 05/25/2023 @ 04:00.
Oxygen weaned.
Clonidine started for BP + withdrawal.
WBC down to 14.2.
Na up to 148 (true free water deficit vs. abberrant lab?).
DATA:
CXR, 05/24/2023:
IMPRESSION:
There is mild coarsening of the interstitial markings in the left perihilar region extending into the mid and lower portions of the left lung most likely reflecting incomplete resolution of pulmonary edema seen on 05/23/2023 examination. Interstitial
pneumonia is less likely.
Cardiac Catheterization, 05/23/2023:CONCLUSIONS:
1.� Right dominant circulation with no coronary artery disease.
2.� Cardiogenic shock (LVEDP = 44 mmHg, PCWP = 44 mmHg, cardiac index 1.36 L/min/m�).
3.� Severe systolic cardiomyopathy with preservation of the basal anterior and inferior perrin with near akinesis of the entire remainder of the ventricle.� Left ventricular ejection fraction 10-15%.
TTE, 05/23/2023:
CONCLUSIONS
�Mildly dilated LV with severely reduced systolic function.
�Estimated EF of 15-20%.
�Possible Takotsubo TYPE CASTER with basal and apical sparing hypokinesis.
�No LVH.
�Normal right ventricular size and function.
�Aortic valve possible calcified RCC and mild regurgitation and no significant
�stenosis.
�Mild tricuspid regurgitation.
�Estimated pulmonary artery pressure of 40 mmHg, assuming a right atrial
�pressure of 3 mmHg.
�No prior for comparison.
CTA Abd/Pelvis, 05/23/2023:
IMPRESSION:
No evidence of aortic dissection.
Moderate bilateral lower lobe groundglass opacities concerning for pneumonia versus aspiration.
Moderate air in the SVC probably due to recent venous access.
Moderate fecal material throughout the colon.
Physical Exam
Vital Signs/Labs
Vital Signs
Temp Pulse Resp BP Pulse Ox
36.4 C 87 23 132/88 91
05/26/23 07:51 05/26/23 06:00 05/26/23 06:00 05/26/23 02:00 05/26/23 06:00
05/24/23 05/25/23 05/26/23
11:59 11:59 11:59
Actual Weight 57.1 kg 59.1 kg 57.3 kg
05/26/23 03:54
05/26/23 03:54
PT 19.0 Sec (11.4-14.6) H 05/23/23 18:25
INR 1.57 05/23/23 18:25
APTT 31.3 Sec (23.4-35.0) 05/23/23 18:25
APTT Cancelled 05/23/23 18:25
Magnesium 2.3 mg/dl (1.6-2.3) 05/26/23 03:54
LAB Results
05/23/23 05/23/23 05/23/23
12:15 18:25 21:29
Troponin I 6.860 H* 11.000 H* D 15.800 H* D
05/24/23 05/24/23
06:20 07:14
Troponin I Cancelled 14.800 H*
Physical Exam
Constitutional: No acute distress, Comfortable and Confusion
EENT: Anicteric and Moist mucous membranes
Cardiovascular: Rhythm & rate is regular, Pedal edema is absent, JVD pressure is normal, S1S2 is normal and Murmur/rub/gallop absent
Respiratory: Respiratory effort normal, Lungs clear to auscul., Wheeze Absent, Crackles Absent and Rhonchi Absent
GI: Soft, Distention absent, Flat, Non tender and Normal bowel sounds
Neuro/Psych: Other (Asleep but arousable.)
Data Reviewed
-
Date of Service: May 26, 2023
Medical Decision Making: Reviewed Test Results and Test Interpretation
EKG: Tracing Personally Visualized and interpreted and Report Reviewed by me
Echo: Tracing Personally Visualized and interpreted and Report Reviewed by me
X-Ray/CT/US/MRI/NUC/PET: Image Personally Visualized and interpreted and Report Reviewed by me
Medical Tests (PFT, Pathology etc): Image Personally Visualized and interpreted and Report Reviewed by me
Labs: Labs Reviewed by me
[2023-05-26] MEDS: ZESTRIL 2.5 MG PO (10:38)
[2023-05-26] MEDS: FARXIGA 10 MG PO (10:39)
[2023-05-26] MEDS: D5W 1000 IV (11:47)
--- NOTE | 2023-05-26 12:00 | PTCARENOTE ---
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 Dr. Turcios notified and further orders received for Speech report checker. Speech to bedside @ this time. Pt. reassessed, no changes in assessment. Remains confused w intermittent lethargy/restlessness
and yelling out. Pt. repositioned and redirected frequently. Psychiatry to bedside as well, updated on pt.'s mentation. Further orders received. Bed alarm active.
--- NOTE | 2023-05-26 12:14 | W.PN.UPDATE ---
Update Note
Progress Note Update
Psychiatric Evaluation dictated.
Patient is presently in withdrawal, likely opiate. denies alcohol use.
I cannot get history from him, RN reports he is intermittently agitatel.
I would continue prn Ativan, if agitation is significant I ordered prn Saphris 2.5 mg prn.
Will F/U
--- NOTE | 2023-05-26 12:23 | PTOTSP ---
Dysphagia Evaluation
Patient is at a high risk for acute dysphagia and aspiration given altered mentation and poor level of alertness while in active withdrawal. Signs concerning for incoordinated oral/pharyngeal swallowing and possible aspiration (i.e., immediate
coughing with thin liquids, delayed coughing after puree) observed at the bedside.
Patient is inappropriate for oral PO and aspiration risk hydration protocol due to AMS, lethargy, and dysphagia. Medications should be given via non-oral means if able. If patient has an essential medications which cannot be given non-orally, and
benefit of medication outweighs risk of aspiration per MD, give medication sparingly in puree.
Recommend:
1. NPO - consider temporary non-oral means if patient with prolonged AMS/lethargy and signs of aspiration
2. Medications preferably via non-oral means
3. Oral care 3-5x daily with strict aspiration precautions
4. Hold aspiration risk hydration protocol at this time
5. Continued dysphagia tx at the acute care level for education regarding dysphagia/aspiration, therapeutic trials to determine appropriateness for oral diet vs further objective swallowing assessment.
[2023-05-26 12:44] LABS: Glucose - Point of Care 81 mg/dl (70-99)
--- NOTE | 2023-05-26 12:53 | CM ---
Addendum entered by Melquiades Caba 05/26/23 15:14:
[place] special forces officer called to check on pt's status. Information provided.
special forces officer confirmed to call them at [phone] when pt is medically stable to be discharged and they will escort the pt to a [place] health care facility.
Original Note:
CM following re: discharge planning.
Reviewed pt's chart, met with pt. pt remains lethargic, drowsy, in restrains, continue supportive care. .
CM checked the [facility]amora for Farxiga 10 mg daily with pt's pharmacy [facility] in [facility]. Per pharmacist insurance covers 100%, no co-pay.
Please call [place] [employer] at pt's discharge at [phone] and pt will be escorted by Police to a [place] health care facility.
D/C plan: [place] police custody at discharge.
CM will follow with discharge plan updates as hospitalization progresses.
[2023-05-26] MEDS: NSS (PRESERVATIVE FREE) 1 ML IV ×6 (14:29→22:58)
[2023-05-26] MEDS: SAPHRIS 2.5 MG SL (14:44)
--- NOTE | 2023-05-26 15:51 | W.PN.HOSP.TC ---
Today's Communication/Plan
-
psych eval
maintain NPO
hypotonic IVF and f/u BMP
Assessment / Plan
Assessment / Plan
CTA chest/abd/pelvis
No evidence of aortic dissection.
Moderate bilateral lower lobe ground-glass opacities concerning for pneumonia versus aspiration
Moderate air in the SVC probably due to recent venous access
Moderate fecal material throughout the colon
LHC
1.� Right dominant circulation with no coronary artery disease.
2.� Cardiogenic shock (LVEDP = 44 mmHg, PCWP = 44 mmHg, cardiac index 1.36 L/min/m�).
3.� Severe systolic cardiomyopathy with preservation of the basal anterior and inferior perrin with near akinesis of the entire remainder of the ventricle.� Left ventricular ejection fraction 10-15%.

1. Nonischemic cardiomyopathy
Systolic HF - no signs of exacerbation
Type II IL from IV cocaine use
-Acute onset of chest discomfort/shortness of breath abdominal pain and nausea vomiting
-EKG showing sinus tachycardia without significant ST segment elevation
-TTE in ER showing EF 15-20%
-CTA chest ruled out any dissection.
-Troponin max of 15.8, trending down now
-LHC showed no clear CAD. have low EF.
-No signs of HF/edema. monitor.
2. Acute hypoxic respiratory failure - Improved
- repeat CXR showing some persistent basal pulmonary edema or interstitial pneumonia
- o2 requirement coming down and on 2L nc, was requiring 15L through midflow.
3.� Nausea and vomiting -Resolved
� � Upper GI bleed suspected Tiffanie Snowden tear
-Patient had coffee-ground emesis following transported to ER
-Continue on PPI
-Hbg remains stable, no repeat episode
-GI help appreciated
3. IV drug use
� � Opioid withdrawal
-UDS positive for cocaine and fentanyl
-Patient uses IV fentanyl.� Injects himself in neck veins.� Hal on both upper and lower extremity on exam as well
-Last used 48 hours back before ER visit. COWS protocol with buprenorphine dose ordered
-Hold tizanidine with cardiac issues, clonidine with hold parameters ordered
4.� Sepsis - POA
�� � Possible aspiration pneumonitis
-Rule out any bacteremia with history of IV drug use
-2 sets of blood culture neg.
-CT chest showing bilateral basal infiltrate.�
-UA/Urine cs neg.
-vanc/zosyn changed to cefepime. has been fever free for last 48hrs.
5. Alcohol abuse
-Monitor for alcohol withdrawal with MSAS/Ativan protocol ordered
-MSAS Remains high and confounded by opioid withdrawal,
6. IDDM
-Patient on Novolin 70/30 10 units twice daily at home.� Compliance questionable
-A1c of 6.3
-Maintain on insulin sliding scale with further addition of Lantus if patient glucose elevated.
7. Cachectic
Sev PCM
- oral intake related
8. Oligoria - resolved
-cr remains stable
9. Acute toxic metabolic encephalopathy
-From above-mentioned drug > alcohol withdrawal issues
-Unable to take oral meds, speech therapy recommended for patient to be maintained n.p.o.
-Cycle requested with agitation issues.
10. Hypernatremia
-started on D5w, recheck Na level later.
DVT PPX - lovenox
Full code
Anticipated Discharge: > 48 hours
Subjective/Interval History
-
Date of Service: May 26, 2023
Patient encephalopathic/agitated
Trying to get out of bed and required restraints and repeated reorientation
Patient requesting to wanting to take shower, clearly not in a position to do so
Objective Data
-
Labs:
Laboratory Results
05/26/23 05/26/23
03:54 16:00
WBC 14.2 H
Hgb 15.0
Hct 44.7
Plt Count 272
Sodium 148 H Pending
Potassium 3.7 Pending
Chloride 115 H Pending
Carbon Dioxide 22 Pending
BUN 46 H Pending
Creatinine 0.6 L Pending
Glucose 92 Pending
Calcium 8.7 Pending
Total Bilirubin 0.7
AST 65 H
ALT 36
Alkaline Phosphatase 58
Vital Signs:
Vital Signs
Temp Pulse Resp BP Pulse Ox
97.8 F 89 24 125/94 99
05/26/23 15:41 05/26/23 11:46 05/26/23 10:38 05/26/23 11:46 05/26/23 10:38
I&O
05/25/23 05/26/23 05/27/23
06:59 06:59 06:59
Intake Total 1260 / 1270 390 / 390
Output Total 860 / 860 980 / 980
Balance 400 / 410 -590 / -590
Review of Systems
-
Unable to obtain full review of systems at this time due to: Acuity
Physical Exam
-
General: Cachectic; Negative Respiratory Distress or Appears in Distress
HEENT: Oxygen (15 L NC)
Respiratory: Clear to Auscultation
Cardiac: Regular Rhythm, S1/S2 and Tachycardic
GI: Soft and Nondistended
Musculoskeletal: No Edema
Neuro: Awake and No Motor Deficits; Negative Oriented
Psych: Confused and Agitated
[2023-05-26] MEDS: LOVENOX 40 MG SC (17:33)
[2023-05-26] MEDS: DEXTROSE 50% SYRINGE 12.5 GRAMS IV (17:57)
[2023-05-26 18:04] LABS: Glucose - Point of Care 68 mg/dl (70-99)
[2023-05-26 18:33] LABS: Glucose - Point of Care 124 mg/dl (70-99)
--- NOTE | 2023-05-26 18:44 | PTCARENOTE ---
Blood sugar @ 1753- 68. Pt. mentation/presentation w/in baseline of previous assessments. Admin Dextrose 50% syringe 12.5mg IV x 1. Repeat blood sugar check @ 1822- 124. Pt. assisted w repositioning in bed. Bed alarm active. Remains in restraints-
see flow sheet.
[2023-05-26] MEDS: VITAMIN B1 PO (20:39)
[2023-05-27] VITALS (15 sets, daily range): BP systolic 106–135; BP diastolic 75–94; BMI 17.6
[2023-05-27] MEDS: ATIVAN 2 MG IV ×6 (00:08→07:50)
[2023-05-27] MEDS: D5W 1000 IV (00:16)
[2023-05-27 00:25] LABS: Glucose - Point of Care 83 mg/dl (70-99)
[2023-05-27] MEDS: NOVOLOG FLEXPEN-LOW RESISTANCE SC ×5 (00:28→23:23)
[2023-05-27] MEDS: CATAPRES PO ×3 (01:17→06:11)
[2023-05-27] MEDS: STERILE WATER FOR INJECTION 10 ML IV ×3 (03:22→19:59)
[2023-05-27] MEDS: MAXIPIME 2000 MG IV ×3 (03:22→19:59)
[2023-05-27 04:40] LABS: Blood Urea Nitrogen 26 mg/dl (9-20); Carbon Dioxide 16 mmol/L (22-30); Chloride 127 mmol/L (98-107); Estimated Creatinine Clearance 122 ml/min; Glucose 205 mg/dl (70-99); Potassium 2.9 mmol/L (3.5-5.1); Sodium 141 mmol/L (135-145); eGFR > 60.00
[2023-05-27 06:14] LABS: Glucose - Point of Care 80 mg/dl (70-99)
[2023-05-27 07:33] LABS: Blood Urea Nitrogen 26 mg/dl (9-20); Calcium 7.8 mg/dl (8.4-10.2); Carbon Dioxide 27 mmol/L (22-30); Chloride 114 mmol/L (98-107); Estimated Creatinine Clearance 122 ml/min; Glucose 115 mg/dl (70-99); Potassium 3.1 mmol/L (3.5-5.1); Sodium 143 mmol/L (135-145); eGFR > 60.00
[2023-05-27] MEDS: SUBUTEX 16 MG SL (07:45)
[2023-05-27] MEDS: ZESTRIL 2.5 MG PO (07:45)
[2023-05-27] MEDS: FARXIGA 10 MG PO (07:46)
[2023-05-27] MEDS: FOLVITE 1 MG PO (07:46)
[2023-05-27] MEDS: VITAMIN B1 100 MG PO (07:46)
[2023-05-27] MEDS: NSS (PRESERVATIVE FREE) 10 ML IV ×2 (07:50→19:59)
[2023-05-27] MEDS: PROTONIX IV 40 MG IV ×2 (07:50→19:59)
--- NOTE | 2023-05-27 08:00 | PTCARENOTE ---
Assumed care of patient. Pt rec'd drowsy but arousable. Increasingly agitated towards [id number]. Ativan 2mg IV given for MSAS of 11. Pt alert to self. Confused to time and place. Garbled speech at times. Able to take sips of water and take po
meds w/ applesauce. S1 S2 reg w/ NSR/BBC on monitor. Weak PP. +3-4 left arm edema. On R/A...sats 97%. Lungs diminished...shallow respirations. Occasional NPC. Abdomen round...hypo BS. Will be seen by speech therapy this am. #25 CC draining
rony urine. Skin sallow in color...dry & intact dressings on right neck and right radial sites. Blanchable red sacrum. Right midline w/ IVF's. VS documented. Bilateral wrist restraints on. Will continue to monitor closely.
--- NOTE | 2023-05-27 08:40 | PTCARENOTE ---
Pt made confidential after conversation w/ . extremely concerned that pt's girlfriend would try to visit and provide pt with illegal drugs. Security updated.
--- NOTE | 2023-05-27 10:26 | W.PN.HOSP.TC ---
Today's Communication/Plan
-
Try to minimize Ativan as much as we can
If mental status not clearing may need imaging of the brain
Will reevaluate later
requested that patient's girlfriend Janice not be allowed to visit him. She is afraid that she will sneak in drugs for him.
Assessment / Plan
Assessment / Plan
CTA chest/abd/pelvis
No evidence of aortic dissection.
Moderate bilateral lower lobe ground-glass opacities concerning for pneumonia versus aspiration
Moderate air in the SVC probably due to recent venous access
Moderate fecal material throughout the colon
LHC
1.� Right dominant circulation with no coronary artery disease.
2.� Cardiogenic shock (LVEDP = 44 mmHg, PCWP = 44 mmHg, cardiac index 1.36 L/min/m�).
3.� Severe systolic cardiomyopathy with preservation of the basal anterior and inferior perrin with near akinesis of the entire remainder of the ventricle.� Left ventricular ejection fraction 10-15%.
Echo 05/23/2023-mildly dilated LV with severely reduced EF 15 to 20%. Possible Takotsubo cardiomyopathy with basal and apical sparing hypokinesis. Normal RV size and function. Aortic valve possible calcified, mild MR. Mild TR. Pulm data pressure
40 mmHg.

Patient slightly drowsy. Following directions. Moving all extremities
Cardiovascular system S1-S2 appreciated
Chest clear to auscultation
Abdomen soft and nontender
Cachectic appearing
STEEL MELTER pupils are equal and reactive
Moving all extremities
Skin with multiple scars from injection
#Nonischemic cardiomyopathy-Takotsubo type
New diagnosis of heart failure with reduced ejection fraction - no signs of exacerbation
Type II TX from IV cocaine use
-TTE in ER showing EF 15-20%
-CTA chest ruled out any dissection.
-Troponin max of 15.8, trending down now
-LHC showed no clear CAD. have low EF.
#Acute hypoxic respiratory failure - Improved
- repeat CXR showing some persistent basal pulmonary edema or interstitial pneumonia
- o2 requirement coming down and on 2L nc, was requiring 15L through midflow.
#Nausea and vomiting -Resolved
�Upper GI bleed suspected Tiffanie Snowden tear
-Patient had coffee-ground emesis following transported to ER
-Continue on PPI
-Hbg remains stable, no repeat episode
-GI help appreciated
#IV drug use
�Opioid withdrawal
-UDS positive for cocaine and fentanyl
-Patient uses IV fentanyl.� Injects himself in neck veins.� Hal on both upper and lower extremity on exam as well
-Last used 48 hours prior to ER visit.
-COWS protocol with buprenorphine dose ordered
-Hold tizanidine with cardiac issues, clonidine with hold parameters ordered
# Sepsis - POA
-Possible aspiration pneumonitis
-2 sets of blood culture neg.
-CT chest showing bilateral basal infiltrate.�
-UA/Urine cs neg.
-vanc/zosyn changed to cefepime. has been fever free for last 48hrs.
# Hypokalemia-replace IV and also check magnesium level
#Alcohol abuse
-Monitor for alcohol withdrawal with MSAS/Ativan protocol ordered
-MSAS Remains high and confounded by opioid withdrawal,
#IDDM
-Patient on Novolin 70/30 -10 units twice daily at home.� Compliance questionable
-A1c of 6.3
-May be got better when he lost weight
-Maintain on insulin sliding scale with further addition of Lantus if patient glucose elevated.
#Cachectic
-Severe PCM
- oral intake related
-'Barely eats and drinks' per .
#Acute toxic metabolic encephalopathy
-From above-mentioned drug > alcohol withdrawal issues
-Unable to take oral meds, speech therapy recommended for patient to be maintained n.p.o.
-Psyche following
#Hypernatremia
-Improved with hypotonic fluids
# Hepatitis C antibody reactive-patient needs to follow up on this and get treatment as outpatient if he has not had .
Per 'he has 18,000 medication- He has not taken it'
#Chron's Disease- Doesn't take meds
# Hypoalbuminemia
#DVT PPX - Lovenox
#Full code
Discussed with nursing at bedside
Called and spoke to patient's patient is noncompliant with medicines. He has chron's disease, hepatitis C for which she has medicine sitting at home which he would not take. She states that all he cares is about making money to get drugs and
get high. He was at [facility] for 6 months in 2021 with a 'blood infection'. As soon as he got home he went and got drugs and used it the same day. She understands that he is still very sick. We discussed about cardiomyopathy and risk
for wide-complex arrhythmias which can be fatal. She understands that taking medicines to get this heart muscle function better is his only chance. She is trying to make that daughter understand how sick he is. She is still thinks that as soon as
he gets home he will go back and use drugs. That is how he was in the past. She also stated that she is 'prepared' for Anything as she is aware he is sick.
also requested that patient's girlfriend Janice not be allowed to visit him. She is afraid that she will sneak in drugs for him.
time spent 55 min
Anticipated Discharge: > 48 hours
Subjective/Interval History
-
Date of Service: May 27, 2023
Objective Data
-
Labs:
Laboratory Results
05/27/23 05/27/23
03:38 06:52
Sodium 141 143
Potassium 2.9 L 3.1 L
Chloride 127 H 114 H
Carbon Dioxide 16 L 27
BUN 26 H 26 H
Creatinine 0.4 L 0.6 L
Glucose 205 H 115 H
Calcium 8.0 L 7.8 L
Vital Signs:
Vital Signs
Temp Pulse Resp BP Pulse Ox
97.8 F 84 21 135/94 97
05/27/23 08:30 05/27/23 08:00 05/27/23 08:00 05/27/23 08:00 05/27/23 08:30
I&O
05/26/23 05/27/23 05/28/23
06:59 06:59 06:59
Intake Total 390 / 390
Output Total 980 / 980 525 / 525
Balance -590 / -590 -525 / -525
[2023-05-27] MEDS: D5/0.45%NSS with KCL 10 MEQ 1000 IV (11:33)
[2023-05-27] MEDS: THIAMINE INJECTION 200 MG IV (11:37)
[2023-05-27] MEDS: KCL 270 MEQ IV (11:40)
--- NOTE | 2023-05-27 12:05 | W.PN.UPDATE ---
Update Note
Progress Note Update
Patient is very sedated, unable to respond verbally. However he is not presently agitated or aggressive.
Will continue current mediucation regime.
[2023-05-27 12:23] LABS: Glucose - Point of Care 95 mg/dl (70-99)
--- NOTE | 2023-05-27 12:30 | PTCARENOTE ---
No major changes in physical assessment. Able to take po meds w/ applesauce. Full bed linen change and CHG completed. Safe environment confirmed.
[2023-05-27] MEDS: CATAPRES 0.100000000000000006 MG PO ×3 (12:54→23:14)
[2023-05-27] MEDS: SAPHRIS 2.5 MG SL (12:56)
[2023-05-27 14:14] LABS: Vitamin D, 25-OH*** 25.5 ng/mL (30-80)
[2023-05-27 14:47] LABS: Vitamin B12 695 pg/ml (239-931)
--- NOTE | 2023-05-27 16:23 | W.PN.CD ---
Today's Communication / Plan
-
-
cont current Rx
consider starting diuresis tomorrow if BP allows
Impression / Plan
-
Impression/Plan: 47 y/o male with DM, HTN and polysubstance abuse admitted with acute hypoxic respiratory failure and EKG changes, found to have bilateral PNA, severe non-ischemic cardiomyopathy and decompensated heart failure to the point of
cardiogenic shock.
#Acute hypoxic respiratory failure
-Multifactorial from PNA and acute HFrEF.
-CT with moderate bilateral lower lobe ground-glass opacities concerning for pneumonia versus aspiration.
-CXR shows some improvement and O2 requirement down to 2LNC.
-BCx = NGTD. Influenza negative. COVID negative.
-Continue to treat for PNA and HF.
-Wean oxygen as able.
#Non-ischemic myocardial injury
-In the setting of acute illness.
-Chest pain free.
-Troponin peaked at 15.800.
#NICM
-Acute on chronic.
-Ventricle is severely dilated, suggesting some chronicity to this process.
-DDx includes Takotsubo from stress of withdrawal vs. EtOH/Polysubstance abuse vs. unrecovered viral cardiomyopathy vs. autoimmune process.
-Start GDMT as hemodynamics will tolerate.
-Avoid beta blockers given cocaine use as cocaine use while on beta blockers will lead to unopposed alpha agonism.
-Continue lisinopril and dapagliflozin.
-Case management consult.
HFrEF (EF 15-20%)
-Possible Takotsubo MACHINE TRIMMER with basal and apical sparing hypokinesis.
-Cardiac catheterization 05/23/23 without CAD.
-Hemodynamics show improvement in CI and filling pressures (interestingly, the patient has received one dose of diuretics).
-Repeat echocardiogram later in this hospitalization to assess for recovery (true septic dysfunction vs. acute decompensated from drug use?).
-Appears compensated.
#Abdominal pain with hematemesis
-Acute, stable.
-H/H stable.
-GI signed off.
#HTN
-Chronic, stable.
#Type II DM
-Chronic, stable.
-Hgba1c 6.3%.
-Adding dapgliflozin.
#Polysubstance abuse
-Chronic. EtOH + intravenous narcotic, cocaine, & benzodiazepines, last used fentanyl 05/22/23, averages 6�8 bags daily.
-Thiamine/folate given.
-Withdrawal protocol per Hospitalist.
Critical Care Time = 35 minutes.
Subjective/Interval History:
patient somnolent/sedate
DATA:
CXR, 05/24/2023:
IMPRESSION:
There is mild coarsening of the interstitial markings in the left perihilar region extending into the mid and lower portions of the left lung most likely reflecting incomplete resolution of pulmonary edema seen on 05/23/2023 examination. Interstitial
pneumonia is less likely.
Cardiac Catheterization, 05/23/2023:CONCLUSIONS:
1.� Right dominant circulation with no coronary artery disease.
2.� Cardiogenic shock (LVEDP = 44 mmHg, PCWP = 44 mmHg, cardiac index 1.36 L/min/m�).
3.� Severe systolic cardiomyopathy with preservation of the basal anterior and inferior perrin with near akinesis of the entire remainder of the ventricle.� Left ventricular ejection fraction 10-15%.
TTE, 05/23/2023:
CONCLUSIONS
�Mildly dilated LV with severely reduced systolic function.
�Estimated EF of 15-20%.
�Possible Takotsubo MACHINE TRIMMER with basal and apical sparing hypokinesis.
�No LVH.
�Normal right ventricular size and function.
�Aortic valve possible calcified RCC and mild regurgitation and no significant
�stenosis.
�Mild tricuspid regurgitation.
�Estimated pulmonary artery pressure of 40 mmHg, assuming a right atrial
�pressure of 3 mmHg.
�No prior for comparison.
CTA Abd/Pelvis, 05/23/2023:
IMPRESSION:
No evidence of aortic dissection.
Moderate bilateral lower lobe groundglass opacities concerning for pneumonia versus aspiration.
Moderate air in the SVC probably due to recent venous access.
Moderate fecal material throughout the colon.
Physical Exam
Vital Signs/Labs
Vital Signs
Temp Pulse Resp BP Pulse Ox
97.7 F 86 20 121/84 98
05/27/23 15:50 05/27/23 14:00 05/27/23 14:00 05/27/23 14:00 05/27/23 14:00
05/26/23 05/27/23 05/28/23
06:59 06:59 06:59
Actual Weight 126 lb 5.198 oz 129 lb 6.581 oz
05/26/23 03:54
05/27/23 06:52
PT 19.0 Sec (11.4-14.6) H 05/23/23 18:25
INR 1.57 05/23/23 18:25
APTT 31.3 Sec (23.4-35.0) 05/23/23 18:25
APTT Cancelled 05/23/23 18:25
Magnesium 2.0 mg/dl (1.6-2.3) 05/27/23 06:52
Physical Exam
Cardiovascular: Rhythm & rate is regular
Respiratory: Labored respirations
GI: Soft
Neuro/Psych: Other (sedate)
Data Reviewed
-
Date of Service: May 27, 2023
EKG: Tracing Personally Visualized and interpreted
Echo: Report Reviewed by me
X-Ray/CT/US/MRI/NUC/PET: Report Reviewed by me
Labs: Labs Reviewed by me
[2023-05-27] MEDS: LOVENOX 40 MG SC (17:06)
[2023-05-27 17:17] LABS: Glucose - Point of Care 72 mg/dl (70-99)
[2023-05-27] MEDS: ATIVAN 1 MG IV (20:11)
--- NOTE | 2023-05-27 21:17 | PTCARENOTE ---
Received pt resting in bed with legs hanging out of bed. Oriented only to self. Slow, garbled speech. Only opening eyes when asked to, drowsy. Following simple commands. MSAS at 1999 = 5- ativan given. Pt. now resting calmly. B/L wrist restraints in
place for safety. SR on tele, HR 80s-90s. Weak DPs. Afebrile. LUE +2 edema. On RA. Lungs diminished bibasilar. Hypoactive bowel sounds. NPO. Asking for food- educated on NPO status because he is so drowsy. Mouth care provided. 25 condom cath with
rony UO. R neck and R wrist dressings in place. R midline with IVF per JUN. Bed alarm on. Monitoring
[2023-05-27 23:29] LABS: Glucose - Point of Care 80 mg/dl (70-99)
[2023-05-28] VITALS (14 sets, daily range): BP systolic 85–120; BP diastolic 57–85; BMI 16.7
[2023-05-28] MEDS: MAXIPIME 2000 MG IV (04:25)
[2023-05-28] MEDS: STERILE WATER FOR INJECTION 10 ML IV (04:25)
[2023-05-28 05:07] LABS: Hematocrit 44.5 % (39.0-52.0); Mean Corp Hgb Conc. 33.7 g/dL (33.0-37.0); Mean Corpuscular Hgb 28.6 pg (27.0-31.0); Mean Corpuscular Volume 84.8 fL (80.0-94.0); Mean Platelet Volume 11.2 fL (7.4-10.4); Platelet Count 259 10^3/uL (130-400); Red Blood Cell Count 5.25 10^6/uL (4.70-6.10); Red Cell Dist. Width 14.3 % (11.5-14.5); White Blood Cell Count 5.7 10^3/uL (4.8-10.8)
[2023-05-28] MEDS: CATAPRES 0.100000000000000006 MG PO ×2 (05:35→11:59)
[2023-05-28] MEDS: D5/0.45%NSS with KCL 10 MEQ 1000 IV (05:35)
[2023-05-28 05:43] LABS: Blood Urea Nitrogen 20 mg/dl (9-20); Carbon Dioxide 27 mmol/L (22-30); Chloride 111 mmol/L (98-107); Estimated Creatinine Clearance 119 ml/min; Glucose 98 mg/dl (70-99); Potassium 4.2 mmol/L (3.5-5.1); Sodium 138 mmol/L (135-145); eGFR > 60.00
[2023-05-28] MEDS: NOVOLOG FLEXPEN-LOW RESISTANCE SC ×3 (05:53→17:33)
[2023-05-28] MEDS: FOLVITE 1 MG PO (08:02)
[2023-05-28] MEDS: PROTONIX IV 40 MG IV ×2 (08:02→21:04)
[2023-05-28] MEDS: SUBUTEX 16 MG SL (08:02)
[2023-05-28] MEDS: FARXIGA 10 MG PO (08:02)
[2023-05-28] MEDS: NSS (PRESERVATIVE FREE) 10 ML IV ×2 (08:02→21:04)
[2023-05-28] MEDS: THIAMINE INJECTION 200 MG IV (08:03)
[2023-05-28] MEDS: ZESTRIL 2.5 MG PO (08:03)
[2023-05-28 08:29] LABS: Glucose - Point of Care 83 mg/dl (70-99)
--- NOTE | 2023-05-28 09:08 | W.PN.HOSP.TC ---
Today's Communication/Plan
-
Speech and PT OT evaluation
Minimize Ativan
MRI of the brain
Diet if allowed by speech.
Assessment / Plan
Assessment / Plan
CTA chest/abd/pelvis
No evidence of aortic dissection.
Moderate bilateral lower lobe ground-glass opacities concerning for pneumonia versus aspiration
Moderate air in the SVC probably due to recent venous access
Moderate fecal material throughout the colon
LHC
1.� Right dominant circulation with no coronary artery disease.
2.� Cardiogenic shock (LVEDP = 44 mmHg, PCWP = 44 mmHg, cardiac index 1.36 L/min/m�).
3.� Severe systolic cardiomyopathy with preservation of the basal anterior and inferior perrin with near akinesis of the entire remainder of the ventricle.� Left ventricular ejection fraction 10-15%.
Echo 05/23/2023-mildly dilated LV with severely reduced EF 15 to 20%. Possible Takotsubo cardiomyopathy with basal and apical sparing hypokinesis. Normal RV size and function. Aortic valve possible calcified, mild MR. Mild TR. Pulm data pressure
40 mmHg.

Patient drowsy, arousable.
Cardiovascular system S1-S2 appreciated
Chest clear to auscultation
Abdomen soft and nontender
Cachectic appearing
FLORAL MANAGER -pupils are equal and reactive
Moving all extremities
speech slurry
Skin with multiple scars from injection
#Nonischemic cardiomyopathy-Takotsubo type
New diagnosis of heart failure with reduced ejection fraction - no signs of exacerbation
Type II OH from IV cocaine use
-TTE in ER showing EF 15-20%
-CTA chest ruled out any dissection.
-Troponin max of 15.8, trending down now
-LHC showed no clear CAD. Has low EF.
#Acute hypoxic respiratory failure - Improved
- repeat CXR showing some persistent basal pulmonary edema or interstitial pneumonia
- Off O2, was requiring 15L through midflow.
#Nausea and vomiting -Resolved
�Upper GI bleed suspected Tiffanie Snowden tear
-Patient had coffee-ground emesis following transported to ER
-Continue on PPI
-Hbg remains stable, no repeat episode
-GI help appreciated
#IV drug use
�Opioid withdrawal
-UDS positive for cocaine and fentanyl
-Patient uses IV fentanyl.� Injects himself in neck veins.� Hal on both upper and lower extremity on exam as well
-Last used 48 hours prior to ER visit.
-COWS protocol with buprenorphine dose ordered
-Hold tizanidine with cardiac issues, clonidine with hold parameters ordered
# Sepsis - POA
-Possible aspiration pneumonitis
-2 sets of blood culture neg.
-CT chest showing bilateral basal infiltrate.�
-UA/Urine cs neg.
-vanc/zosyn changed to cefepime. Has been fever free for last 48hrs.
# Hypokalemia-resolved
#Alcohol abuse
-Monitor for alcohol withdrawal with MSAS/Ativan protocol ordered
-MSAS Remains high and confounded by opioid withdrawal,
#IDDM
-Patient on Novolin 70/30 -10 units twice daily at home.� Compliance questionable
-A1c of 6.3
-May be got better when he lost weight
-Maintain on insulin sliding scale with further addition of Lantus if patient glucose elevated.
#Cachectic
-Severe PCM
- oral intake related
-'Barely eats and drinks' per .
#Acute toxic metabolic encephalopathy
-From above-mentioned drug > alcohol withdrawal issues
-Unable to take oral meds, speech therapy recommended for patient to be maintained n.p.o.
-Psyche following
#Hypernatremia
-Improved with hypotonic fluids
# Hepatitis C antibody reactive-patient needs to follow up on this and get treatment as outpatient if he has not had .
Per 'he has 18,000 medication- He has not taken it'
#Chron's Disease- Doesn't take meds
# Hypoalbuminemia
#DVT PPX - Lovenox
#Full code
Discussed with nursing at bedside
05/27/23-Called and spoke to patient's patient is noncompliant with medicines. He has chron's disease, hepatitis C for which she has medicine sitting at home which he would not take. She states that all he cares is about making money to get
drugs and get high. He was at [facility] for 6 months in 2021 with a 'blood infection'. As soon as he got home he went and got drugs and used it the same day. She understands that he is still very sick. We discussed about cardiomyopathy
and risk for wide-complex arrhythmias which can be fatal. She understands that taking medicines to get this heart muscle function better is his only chance. She is trying to make that daughter understand how sick he is. She is still thinks that
as soon as he gets home he will go back and use drugs. That is how he was in the past. She also stated that she is 'prepared' for Anything as she is aware he is sick.
also requested that patient's girlfriend Janice not be allowed to visit him. She is afraid that she will sneak in drugs for him.
Time spent 51 min
Anticipated Discharge: > 48 hours
Subjective/Interval History
-
Date of Service: May 28, 2023
Objective Data
-
Labs:
Laboratory Results
05/28/23
04:24
WBC 5.7
Hgb 15.0
Hct 44.5
Plt Count 259
Sodium 138
Potassium 4.2 D
Chloride 111 H
Carbon Dioxide 27
BUN 20
Creatinine 0.5 L
Glucose 98
Calcium 8.0 L
Vital Signs:
Vital Signs
Temp Pulse Resp BP Pulse Ox
97.0 F 78 16 120/84 99
05/28/23 07:48 05/28/23 08:00 05/28/23 08:00 05/28/23 08:03 05/28/23 08:00
I&O
05/27/23 05/28/23 05/29/23
06:59 06:59 06:59
Intake Total 1300 / 1300
Output Total 525 / 525 700 / 700
Balance -525 / -525 600 / 600
--- NOTE | 2023-05-28 10:04 | PTOTSP ---
Dysphagia Follow Up
Pt seen for dysphagia follow up this date. Received at bedside with NOEL Beltran present. Asking for food. Per RN, took medications crushed in puree this morning with no difficulty. Oral care performed prior to PO trials with residual applesauce on
lingual surface from morning medications. Increased lethargy at baseline. Speech remains dysarthric and vocal quality is weak. Following simple 1 step commands. A
PO trials of ice chips, thin liquid via tsp, and puree. Deferred higher level trials 2/2 increased lethargy and AMS. Good bolus acceptance of all textures trials. Prolonged bolus holding observed w/ puree. Little to no oral residue observed will all
trials. No overt s/s of aspiration or penetration observed. Pt denies s/s of globus sensation or reflux. Laryngeal elevation present to palpation with all swallows. Pt not happy about pureed diet recommendations. Education provided on slow diet
advancement 2/2 increased lethargy and AMS.
WINK CUTTER OPERATOR service to follow up as able to check diet tolerance and advance diet as able.
Recommend:
1. Puree (IDDSI 4), thin liquids (IDDSI 0)
2. Medications crushed in puree
3. Oral care 3-5x daily with strict aspiration precautions
4. FULL SUPERVISION AND ASSISTANCE WITH MEALS
5. Continued dysphagia tx at the acute care level for education regarding dysphagia/aspiration, therapeutic trials to determine appropriateness for diet upgrade vs further objective swallowing assessment.
--- NOTE | 2023-05-28 10:15 | W.PN.CD ---
Today's Communication / Plan
-
-
as yet seems to frail and volume depleted to advance lisinopril or start daily lasix
Impression / Plan
-
Impression/Plan: 47 y/o male with DM, HTN and polysubstance abuse admitted with acute hypoxic respiratory failure and EKG changes, found to have bilateral PNA, severe non-ischemic cardiomyopathy and decompensated heart failure to the point of
cardiogenic shock.
#Acute hypoxic respiratory failure
-Multifactorial from PNA and acute HFrEF.
-CT with moderate bilateral lower lobe ground-glass opacities concerning for pneumonia versus aspiration.
-CXR shows some improvement and O2 requirement down to 2LNC.
-BCx = NGTD. Influenza negative. COVID negative.
-Continue to treat for PNA
#Non-ischemic myocardial injury
-In the setting of acute illness.
-Chest pain free.
-Troponin peaked at 15.800.
#NICM
-Acute on chronic.
-Ventricle is severely dilated, suggesting some chronicity to this process.
-DDx includes Takotsubo from stress of withdrawal vs. EtOH/Polysubstance abuse vs. unrecovered viral cardiomyopathy vs. autoimmune process.
-Start GDMT as hemodynamics will tolerate - as yet not able to advance meds due to low BP and likely volume depleted
-Avoid beta blockers given cocaine use as cocaine use while on beta blockers will lead to unopposed alpha agonism.
-Continue lisinopril 2.5mg and dapagliflozin.
-Case management consult.
HFrEF (EF 15-20%)
-Possible Takotsubo INFECTIOUS DISEASE TECHNICIAN with basal and apical sparing hypokinesis.
-Cardiac catheterization 05/23/23 without CAD.
-Hemodynamics show improvement in CI and filling pressures (interestingly, the patient has received one dose of diuretics).
-Repeat echocardiogram later in this hospitalization to assess for recovery (true septic dysfunction vs. acute decompensated from drug use?).
-Appears compensated.
#Abdominal pain with hematemesis
-Acute, stable.
-H/H stable.
-GI signed off.
#HTN
-Chronic, stable.
#Type II DM
-Chronic, stable.
-Hgba1c 6.3%.
-Adding dapgliflozin.
#Polysubstance abuse
-Chronic. EtOH + intravenous narcotic, cocaine, & benzodiazepines, last used fentanyl 05/22/23, averages 6�8 bags daily.
-Thiamine/folate given.
-Withdrawal protocol per Hospitalist.
Critical Care Time = 30 minutes.
Subjective/Interval History:
patient somnolent/sedate
DATA:
CXR, 05/24/2023:
IMPRESSION:
There is mild coarsening of the interstitial markings in the left perihilar region extending into the mid and lower portions of the left lung most likely reflecting incomplete resolution of pulmonary edema seen on 05/23/2023 examination. Interstitial
pneumonia is less likely.
Cardiac Catheterization, 05/23/2023:CONCLUSIONS:
1.� Right dominant circulation with no coronary artery disease.
2.� Cardiogenic shock (LVEDP = 44 mmHg, PCWP = 44 mmHg, cardiac index 1.36 L/min/m�).
3.� Severe systolic cardiomyopathy with preservation of the basal anterior and inferior perrin with near akinesis of the entire remainder of the ventricle.� Left ventricular ejection fraction 10-15%.
TTE, 05/23/2023:
CONCLUSIONS
�Mildly dilated LV with severely reduced systolic function.
�Estimated EF of 15-20%.
�Possible Takotsubo INFECTIOUS DISEASE TECHNICIAN with basal and apical sparing hypokinesis.
�No LVH.
�Normal right ventricular size and function.
�Aortic valve possible calcified RCC and mild regurgitation and no significant
�stenosis.
�Mild tricuspid regurgitation.
�Estimated pulmonary artery pressure of 40 mmHg, assuming a right atrial
�pressure of 3 mmHg.
�No prior for comparison.
CTA Abd/Pelvis, 05/23/2023:
IMPRESSION:
No evidence of aortic dissection.
Moderate bilateral lower lobe groundglass opacities concerning for pneumonia versus aspiration.
Moderate air in the SVC probably due to recent venous access.
Moderate fecal material throughout the colon.
Physical Exam
Vital Signs/Labs
Vital Signs
Temp Pulse Resp BP Pulse Ox
97.0 F 78 16 120/84 99
05/28/23 07:48 05/28/23 08:00 05/28/23 08:00 05/28/23 08:03 05/28/23 08:00
05/27/23 05/28/23 05/29/23
06:59 06:59 06:59
Actual Weight 123 lb 3.814 oz
05/28/23 04:24
05/28/23 04:24
PT 19.0 Sec (11.4-14.6) H 05/23/23 18:25
INR 1.57 05/23/23 18:25
APTT 31.3 Sec (23.4-35.0) 05/23/23 18:25
APTT Cancelled 05/23/23 18:25
Magnesium 2.0 mg/dl (1.6-2.3) 05/28/23 04:24
Physical Exam
Cardiovascular: Rhythm & rate is regular and Pedal edema is absent
Respiratory: Respiratory effort normal and Rhonchi Present
Data Reviewed
-
Date of Service: May 28, 2023
EKG: Tracing Personally Visualized and interpreted
Labs: Labs Reviewed by me
[2023-05-28 11:51] LABS: Glucose - Point of Care 83 mg/dl (70-99)
[2023-05-28 17:09] LABS: Glucose - Point of Care 87 mg/dl (70-99)
--- NOTE | 2023-05-28 17:35 | PTCARENOTE ---
patient is confused, only oriented to self, MSAS Q1H in progress, current score is 5, patient is occasionally hallucinating, easy to reorient. remains drowsy all shift with occasional periods of increased activity, hollering and calling out. b/l
wrist and rales restraints. tolerates pureed diet and thin liquids without s/s of aspirating. accu checks in progress and WNL. PO meds administered with . MRI of the brain pending.
[2023-05-28] MEDS: LOVENOX 40 MG SC (18:07)
[2023-05-28] MEDS: CATAPRES PO (18:10)
[2023-05-28] MEDS: LR 1000 IV (18:37)
--- NOTE | 2023-05-28 18:39 | PTCARENOTE ---
BP 87/63. KNOWLEDGE ENGINEER notified and 1000 ml IVF bolus ordered and is now infusing. Will recheck BP post administration
[2023-05-28] MEDS: SAPHRIS 2.5 MG SL (21:04)
[2023-05-28 21:37] LABS: Glucose - Point of Care 75 mg/dl (70-99)
[2023-05-29] VITALS (14 sets, daily range): BP systolic 94–128; BP diastolic 58–85; PULSE 96–99; O2SAT 96–97; BMI 17.5
[2023-05-29] MEDS: CATAPRES PO (00:07)
[2023-05-29 04:02] LABS: Hematocrit 40.5 % (39.0-52.0); Mean Corp Hgb Conc. 34.6 g/dL (33.0-37.0); Mean Corpuscular Hgb 28.6 pg (27.0-31.0); Mean Corpuscular Volume 82.8 fL (80.0-94.0); Mean Platelet Volume 10.9 fL (7.4-10.4); Platelet Count 231 10^3/uL (130-400); Red Blood Cell Count 4.89 10^6/uL (4.70-6.10); Red Cell Dist. Width 14.2 % (11.5-14.5); White Blood Cell Count 5.1 10^3/uL (4.8-10.8)
[2023-05-29] MEDS: D5/0.45%NSS with KCL 10 MEQ IV (04:43)
[2023-05-29] MEDS: CATAPRES 0.100000000000000006 MG PO (06:18)
[2023-05-29 08:23] LABS: Glucose - Point of Care 90 mg/dl (70-99)
[2023-05-29] MEDS: PROTONIX IV 40 MG IV ×2 (08:25→20:06)
[2023-05-29] MEDS: NSS (PRESERVATIVE FREE) 10 ML IV ×2 (08:25→20:07)
[2023-05-29] MEDS: SUBUTEX 16 MG SL (08:26)
[2023-05-29] MEDS: THIAMINE INJECTION 200 MG IV (08:26)
[2023-05-29] MEDS: FOLVITE 1 MG PO (08:27)
[2023-05-29] MEDS: ZESTRIL 2.5 MG PO (08:27)
[2023-05-29] MEDS: FARXIGA 10 MG PO (08:27)
--- NOTE | 2023-05-29 08:37 | PTCARENOTE ---
patient received at 0700 in bed AAO x3 flat effect slow speech. SR 91 BP via left FA 114/85 MAP 96. 99%RA. Blood sugar 90 no insulin coverage received . 100 for Breakfast. pt requires full assistance with feeding. Puree diet Thin liquid . denies
pain. RT mid-line flushed, capped. HOB elevated. call cho with reach
--- NOTE | 2023-05-29 10:08 | W.PN.HOSP.TC ---
Today's Communication/Plan
-
-Patient started on lisinopril low-dose and Farxiga
-May need to use labetalol instead of metoprolol given his cocaine use
-Wean clonidine so blood pressure 1 [address] of starting these medicines.
-Looks euvolemic I do not think he needs diuresis at this point.
-PT/OT
Assessment / Plan
Assessment / Plan
CTA chest/abd/pelvis
No evidence of aortic dissection.
Moderate bilateral lower lobe ground-glass opacities concerning for pneumonia versus aspiration
Moderate air in the SVC probably due to recent venous access
Moderate fecal material throughout the colon
LHC
1.� Right dominant circulation with no coronary artery disease.
2.� Cardiogenic shock (LVEDP = 44 mmHg, PCWP = 44 mmHg, cardiac index 1.36 L/min/m�).
3.� Severe systolic cardiomyopathy with preservation of the basal anterior and inferior perrin with near akinesis of the entire remainder of the ventricle.� Left ventricular ejection fraction 10-15%.
Echo 05/23/2023-mildly dilated LV with severely reduced EF 15 to 20%. Possible Takotsubo cardiomyopathy with basal and apical sparing hypokinesis. Normal RV size and function. Aortic valve possible calcified, mild MR. Mild TR. Pulm data pressure
40 mmHg.

Able to communicate
Cardiovascular system S1-S2 appreciated
Chest clear to auscultation
Abdomen soft and nontender
Cachectic appearing
PHOTOGRAPHIC INTELLIGENCE OFFICER -pupils are equal and reactive
Moving all extremities
speech still thick.
Poor dentition, missing teeth
Skin with multiple scars from injection
#Nonischemic cardiomyopathy-Takotsubo type
New diagnosis of heart failure with reduced ejection fraction - no signs of exacerbation
Type II [place] from IV cocaine use
-TTE in ER showing EF 15-20%
-CTA chest ruled out any dissection.
-Troponin max of 15.8, trended down
-LHC showed no clear CAD. Has low EF.
-Patient started on lisinopril low-dose and Farxiga
-May need to use labetalol instead of metoprolol given his cocaine use
-Wean clonidine so blood pressure 1 be in the way of starting these medicines.
-Looks euvolemic I do not think he needs diuresis at this point.
#Acute hypoxic respiratory failure - Improved
- repeat CXR showing some persistent basal pulmonary edema or interstitial pneumonia
- Off O2 now, was requiring 15L through midflow.
#Nausea and vomiting -Resolved
�Upper GI bleed suspected Tiffanie Snowden tear
-Patient had coffee-ground emesis following transported to ER
-Continue on PPI
-Hbg remains stable, no repeat episode
-GI help appreciated
#IV drug use
�Opioid withdrawal
-UDS positive for cocaine and fentanyl
-Patient uses IV fentanyl.� Injects himself in neck veins.� Hal on both upper and lower extremity on exam as well
-Last used 48 hours prior to ER visit.
-COWS protocol with buprenorphine dose ordered
-Hold tizanidine with cardiac issues, clonidine with hold parameters ordered
#Sepsis - POA
-Possible aspiration pneumonitis
-2 sets of blood culture neg.
-CT chest showing bilateral basal infiltrate.�
-UA/Urine cs neg.
-vanc/zosyn changed to cefepime. Has been fever free for last 48hrs.
#Hypokalemia-resolved
#Alcohol abuse
-Monitor for alcohol withdrawal with MSAS/Ativan protocol ordered
-MSAS better
-Stop Ativan
#IDDM
-Patient on Novolin 70/30 -10 units twice daily at home.� Compliance questionable
-A1c of 6.3
-May be got better when he lost weight
-Maintain on insulin sliding scale with further addition of Lantus if patient glucose elevated.
#Cachectic
-Severe PCM
- oral intake related
-'Barely eats and drinks' per .
#Acute toxic metabolic encephalopathy
-From above-mentioned drug > alcohol withdrawal issues
-Unable to take oral meds, speech therapy recommended for patient to be maintained n.p.o.
-Psyche following
#Hypernatremia
-Improved with hypotonic fluids
#Hepatitis C antibody reactive-patient needs to follow up on this and get treatment as outpatient if he has not had .
Per 'he has 18,000 medication- He has not taken it'
#Chron's Disease- Doesn't take meds
#Hypoalbuminemia
#Vit D Def -Replace
#DVT PPX - Lovenox
#Full code
Discussed with nursing at bedside
PT/OT
05/27/23-Called and spoke to patient's patient is noncompliant with medicines. He has chron's disease, hepatitis C for which she has medicine sitting at home which he would not take. She states that all he cares is about making money to get
drugs and get high. He was at [facility] for 6 months in 2021 with a 'blood infection'. As soon as he got home he went and got drugs and used it the same day. She understands that he is still very sick. We discussed about cardiomyopathy
and risk for wide-complex arrhythmias which can be fatal. She understands that taking medicines to get this heart muscle function better is his only chance. She is trying to make that daughter understand how sick he is. She is still thinks that
as soon as he gets home he will go back and use drugs. That is how he was in the past. She also stated that she is 'prepared' for Anything as she is aware he is sick.
also requested that patient's girlfriend Janice not be allowed to visit him. She is afraid that she will sneak in drugs for him.
05/29/23- Spoke to - updated.
Anticipated Discharge: 24 - 48 hours
Subjective/Interval History
-
Date of Service: May 29, 2023
Objective Data
-
Labs:
Laboratory Results
05/29/23 05/29/23
03:44 04:31
WBC 5.1
Hgb 14.0
Hct 40.5
Plt Count 231
Sodium Cancelled Pending
Potassium Cancelled Pending
Chloride Cancelled Pending
Carbon Dioxide Cancelled Pending
BUN Cancelled Pending
Creatinine Cancelled Pending
Glucose Cancelled Pending
Calcium Cancelled Pending
Vital Signs:
Vital Signs
Temp Pulse Resp BP Pulse Ox
97.8 F 90 16 114/85 97
05/29/23 07:48 05/29/23 08:27 05/29/23 08:22 05/29/23 08:27 05/29/23 08:22
I&O
05/28/23 05/29/23 05/30/23
06:59 06:59 06:59
Intake Total 1300 / 1300 890 / 890
Output Total 700 / 700 1350 / 1350
Balance 600 / 600 -460 / -460
--- NOTE | 2023-05-29 11:17 | PTCARENOTE ---
MRI head done results pending
[2023-05-29] MEDS: DRISDOL (VITAMIN D2) 50000 UNITS PO (11:27)
[2023-05-29 11:41] LABS: Glucose - Point of Care 102 mg/dl (70-99)
[2023-05-29 13:32] LABS: Glucose - Point of Care 194 mg/dl (70-99)
[2023-05-29 16:47] LABS: Glucose - Point of Care 102 mg/dl (70-99)
[2023-05-29] MEDS: LOVENOX 40 MG SC (17:23)
--- NOTE | 2023-05-29 18:28 | PTCARENOTE ---
patient in bed. MSAS 0. AAO x3 Condom cather replaced draing clear yellow urine. Good appetite call cho within reach
--- NOTE | 2023-05-29 20:00 | PTCARENOTE ---
Rec'd pt resting in bed, oriented to person & place, needs reorientation to time, cooperative, follows commands, SR/ST, bp stable, weak distal pulses, skin warm/dry, RA, lungs decr in bases, sat 96, + bowel sounds, no bm, abd soft, no n/v, told
diet, #25 condom cath - voiding rony urine
[2023-05-29 20:10] LABS: Blood Urea Nitrogen 24 mg/dl (9-20); Calcium 7.7 mg/dl (8.4-10.2); Carbon Dioxide 28 mmol/L (22-30); Chloride 101 mmol/L (98-107); Estimated Creatinine Clearance 125 ml/min; Glucose 135 mg/dl (70-99); Magnesium 1.9 mg/dl (1.6-2.3); Potassium 3.6 mmol/L (3.5-5.1); Sodium 133 mmol/L (135-145); eGFR > 60.00
[2023-05-29 21:39] LABS: Glucose - Point of Care 107 mg/dl (70-99)
[2023-05-30] VITALS (14 sets, daily range): BP systolic 91–115; BP diastolic 59–75; BMI 17.6
--- NOTE | 2023-05-30 00:04 | PTCARENOTE ---
sys reviewed, changes noted
--- NOTE | 2023-05-30 03:28 | PTCARENOTE ---
sys reviewed, changes noted, CHG bath done, linens changed
[2023-05-30 06:52] LABS: Hematocrit 43.4 % (39.0-52.0); Hemoglobin 14.8 g/dL (13.0-18.0); Mean Corp Hgb Conc. 34.1 g/dL (33.0-37.0); Mean Corpuscular Hgb 29.1 pg (27.0-31.0); Mean Corpuscular Volume 85.4 fL (80.0-94.0); Platelet Count 226 10^3/uL (130-400); Red Blood Cell Count 5.08 10^6/uL (4.70-6.10); Red Cell Dist. Width 14.3 % (11.5-14.5); White Blood Cell Count 4.6 10^3/uL (4.8-10.8)
[2023-05-30 07:20] LABS: Blood Urea Nitrogen 18 mg/dl (9-20); Calcium 7.9 mg/dl (8.4-10.2); Carbon Dioxide 29 mmol/L (22-30); Chloride 100 mmol/L (98-107); Estimated Creatinine Clearance > 125 ml/min; Glucose 99 mg/dl (70-99); Magnesium 2.1 mg/dl (1.6-2.3); Potassium 3.9 mmol/L (3.5-5.1); Sodium 133 mmol/L (135-145); eGFR > 60.00
[2023-05-30 07:29] LABS: Glucose - Point of Care 119 mg/dl (70-99)
[2023-05-30] MEDS: SUBUTEX 16 MG SL (07:33)
[2023-05-30] MEDS: FOLVITE 1 MG PO (07:33)
[2023-05-30] MEDS: NSS (PRESERVATIVE FREE) 10 ML IV (07:34)
[2023-05-30] MEDS: THIAMINE INJECTION 200 MG IV (07:34)
[2023-05-30] MEDS: FARXIGA 10 MG PO (07:34)
[2023-05-30] MEDS: PROTONIX IV 40 MG IV (07:34)
[2023-05-30] MEDS: VITAMIN D3 (cholecalciferol) 2000 UNITS PO (07:34)
[2023-05-30] MEDS: ZESTRIL 2.5 MG PO (07:35)
--- NOTE | 2023-05-30 08:30 | W.PN.CD ---
Today's Communication / Plan
-
-
start carvediolol 3.125 BID; cont w lisinopril
repeat echo tomorrow(Tue)
Impression / Plan
-
Impression/Plan: 47 y/o male with DM, HTN and polysubstance abuse admitted with acute hypoxic respiratory failure and EKG changes, found to have bilateral PNA, severe non-ischemic cardiomyopathy and decompensated heart failure to the point of
cardiogenic shock.
#Acute hypoxic respiratory failure - continues to improve
-Multifactorial from PNA and acute HFrEF.
-CT with moderate bilateral lower lobe ground-glass opacities concerning for pneumonia versus aspiration.
-CXR shows some improvement and O2 requirement down to 2LNC.
-BCx = NGTD. Influenza negative. COVID negative.
-Continue to treat for PNA
#Non-ischemic myocardial injury
-In the setting of acute illness.
-Chest pain free.
-Troponin peaked at 15.800.
#NICM
-Acute on chronic.
-Ventricle is severely dilated, suggesting some chronicity to this process.
-DDx includes Takotsubo from stress of withdrawal vs. EtOH/Polysubstance abuse vs. unrecovered viral cardiomyopathy vs. autoimmune process.
-Start GDMT as hemodynamics will tolerate - studies have shown carvedilol is safe and effective for chronic cocaine users
Venkata Eli, Juanito Lopez, Yung Cullenet al.�:�'Carvedilol among patients with heart failure with a cocaine-use disorder'.�J�Am Kavita Cardiol HF�2019;�7: 771.
-Continue lisinopril 2.5mg and dapagliflozin if affordable. and I will start coreg 3.125 BID
-Case management consult.
HFrEF (EF 15-20%)
-Possible Takotsubo DIRECTOR CALL with basal and apical sparing hypokinesis.- repeat echocard tomorrow(tue)
-Cardiac catheterization 05/23/23 without CAD.
-Hemodynamics show improvement in CI and filling pressures (interestingly, the patient has received one dose of diuretics).
-Repeat echocardiogram later in this hospitalization to assess for recovery (true septic dysfunction vs. acute decompensated from drug use?).
-Appears compensated.
#Abdominal pain with hematemesis
-Acute, stable.
-H/H stable.
-GI signed off.
#HTN
-Chronic, stable.
#Type II DM
-Chronic, stable.
-Hgba1c 6.3%.
-Adding dapgliflozin.
#Polysubstance abuse
-Chronic. EtOH + intravenous narcotic, cocaine, & benzodiazepines, last used fentanyl 05/22/23, averages 6�8 bags daily.
-Thiamine/folate given.
-Withdrawal protocol per Hospitalist.
Critical Care Time = 30 minutes.
Subjective/Interval History:
patient awake, alert, comfortable
DATA:
CXR, 05/24/2023:
IMPRESSION:
There is mild coarsening of the interstitial markings in the left perihilar region extending into the mid and lower portions of the left lung most likely reflecting incomplete resolution of pulmonary edema seen on 05/23/2023 examination. Interstitial
pneumonia is less likely.
Cardiac Catheterization, 05/23/2023:CONCLUSIONS:
1.� Right dominant circulation with no coronary artery disease.
2.� Cardiogenic shock (LVEDP = 44 mmHg, PCWP = 44 mmHg, cardiac index 1.36 L/min/m�).
3.� Severe systolic cardiomyopathy with preservation of the basal anterior and inferior perrin with near akinesis of the entire remainder of the ventricle.� Left ventricular ejection fraction 10-15%.
TTE, 05/23/2023:
CONCLUSIONS
�Mildly dilated LV with severely reduced systolic function.
�Estimated EF of 15-20%.
�Possible Takotsubo DIRECTOR CALL with basal and apical sparing hypokinesis.
�No LVH.
�Normal right ventricular size and function.
�Aortic valve possible calcified RCC and mild regurgitation and no significant
�stenosis.
�Mild tricuspid regurgitation.
�Estimated pulmonary artery pressure of 40 mmHg, assuming a right atrial
�pressure of 3 mmHg.
�No prior for comparison.
CTA Abd/Pelvis, 05/23/2023:
IMPRESSION:
No evidence of aortic dissection.
Moderate bilateral lower lobe groundglass opacities concerning for pneumonia versus aspiration.
Moderate air in the SVC probably due to recent venous access.
Moderate fecal material throughout the colon.
Physical Exam
Vital Signs/Labs
Vital Signs
Temp Pulse Resp BP Pulse Ox
98.1 F 80 15 115/75 95
05/30/23 07:56 05/30/23 07:35 05/30/23 06:00 05/30/23 07:35 05/30/23 02:00
05/29/23 05/30/23 05/31/23
06:59 06:59 06:59
Actual Weight 128 lb 15.527 oz 129 lb 6.581 oz
05/30/23 06:19
05/30/23 06:19
PT 19.0 Sec (11.4-14.6) H 05/23/23 18:25
INR 1.57 05/23/23 18:25
APTT 31.3 Sec (23.4-35.0) 05/23/23 18:25
APTT Cancelled 05/23/23 18:25
Magnesium 2.1 mg/dl (1.6-2.3) 05/30/23 06:19
Physical Exam
Constitutional: No acute distress
Cardiovascular: Rhythm & rate is regular and Pedal edema is absent
Respiratory: Respiratory effort normal and Lungs clear to auscul.
Data Reviewed
-
Date of Service: May 30, 2023
EKG: Tracing Personally Visualized and interpreted
Echo: Tracing Personally Visualized and interpreted
Medical Tests (PFT, Pathology etc): Discussed with Physician
--- NOTE | 2023-05-30 08:55 | PTOTSP ---
Speech Language Pathology
Pt seen for dysphagia tx. Awake, alert, and oriented. Pleasant and cooperative. Pt edentulous, but he stated that he has been this way for some time and is able to chew anything. Trialed thin liquids and regular solids. Adequate mastication,
bolus formation, and A-P transit noted with no oral residue. No overt signs of aspiration.
Recommend:
(1) Upgrade to regular solids/thin liquids
(2) General aspiration precautions
(3) Meds as tolerated
(4) WRAPPER REWINDER to sign off. Please reconsult as indicated.
[2023-05-30] MEDS: COREG 3.125 MG PO ×2 (09:32→21:09)
--- NOTE | 2023-05-30 10:23 | W.PN.HOSP.TC ---
Addendum entered and electronically signed by Nona Mcelroy MD 05/30/23 11:22:
Nursing states that patient did not get clonidine last night or this morning therefore I will stop that.
Original Note:
Today's Communication/Plan
-
CXR
solid diet
Coreg
wean off Clonidine
ECHO
Transfer to tele
Discharge tomorrow
Assessment / Plan
Assessment / Plan
CTA chest/abd/pelvis
No evidence of aortic dissection.
Moderate bilateral lower lobe ground-glass opacities concerning for pneumonia versus aspiration
Moderate air in the SVC probably due to recent venous access
Moderate fecal material throughout the colon
LHC
1.� Right dominant circulation with no coronary artery disease.
2.� Cardiogenic shock (LVEDP = 44 mmHg, PCWP = 44 mmHg, cardiac index 1.36 L/min/m�).
3.� Severe systolic cardiomyopathy with preservation of the basal anterior and inferior perrin with near akinesis of the entire remainder of the ventricle.� Left ventricular ejection fraction 10-15%.
Echo 05/23/2023-mildly dilated LV with severely reduced EF 15 to 20%. Possible Takotsubo cardiomyopathy with basal and apical sparing hypokinesis. Normal RV size and function. Aortic valve possible calcified, mild MR. Mild TR. Pulm data pressure
40 mmHg.

Cardiovascular system S1-S2 appreciated
Chest clear to auscultation
Abdomen soft and nontender
Cachectic appearing
VETERINARY SURGEON -Non focal
AAO3
Skin with multiple scars from injection
#Nonischemic cardiomyopathy-Takotsubo type
New diagnosis of heart failure with reduced ejection fraction - no signs of exacerbation
Type II CT from IV cocaine use
-TTE in ER showing EF 15-20%
-CTA chest ruled out any dissection.
-Troponin max of 15.8, trended down
-LHC showed no clear CAD. Has low EF.
-Patient started on lisinopril low-dose and Farxiga
-Coreg started
-Wean clonidine
-Looks euvolemic I do not think he needs diuresis at this point.
#Acute hypoxic respiratory failure - Improved
- Rpt CXR
- Off O2 now, was requiring 15L through midflow.
#Nausea and vomiting -Resolved
�Upper GI bleed suspected Tiffanie Snowden tear
-Patient had coffee-ground emesis following transported to ER
-Continue on PPI
-Hbg remains stable, no repeat episode
-GI help appreciated
#IV drug use
�Opioid withdrawal
-UDS positive for cocaine and fentanyl
-Patient uses IV fentanyl.� Injects himself in neck veins.� Hal on both upper and lower extremity on exam as well
-Last used 48 hours prior to ER visit.
-COWS protocol with buprenorphine dose ordered
-Hold tizanidine with cardiac issues, clonidine wean
#Sepsis - POA
-Possible aspiration pneumonitis
-2 sets of blood culture neg.
-CT chest showing bilateral basal infiltrate.�
-UA/Urine cs neg.
-vanc/zosyn changed to cefepime. NOw off
#Hypokalemia-resolved
#Alcohol abuse
-Monitor for alcohol withdrawal with MSAS/Ativan protocol ordered
-Off Ativan
#IDDM
-Patient on Novolin 70/30 -10 units twice daily at home.� Compliance questionable
-A1c of 6.3
-May be got better when he lost weight
-Maintain on insulin sliding scale with further addition of Lantus if patient glucose elevated.
#Cachectic
-Severe PCM
- oral intake related
-'Barely eats and drinks' per .
#Acute toxic metabolic encephalopathy
-From withdrawal
-Now back to baseline.
#Hypernatremia
-Improved with hypotonic fluids
#Hepatitis C antibody reactive-patient needs to follow up on this and get treatment as outpatient if he has not had .
Per 'he has 18,000 medication- He has not taken it'
#Chron's Disease- Doesn't take meds
#Hypoalbuminemia
#Vit D Def -Replace
#DVT PPX - Lovenox
#Full code
Discussed with nursing at bedside
PT/OT
05/27/23-Called and spoke to patient's patient is noncompliant with medicines. He has chron's disease, hepatitis C for which she has medicine sitting at home which he would not take. She states that all he cares is about making money to get
drugs and get high. He was at [facility] for 6 months in 2021 with a 'blood infection'. As soon as he got home he went and got drugs and used it the same day. She understands that he is still very sick. We discussed about cardiomyopathy
and risk for wide-complex arrhythmias which can be fatal. She understands that taking medicines to get this heart muscle function better is his only chance. She is trying to make that daughter understand how sick he is. She is still thinks that
as soon as he gets home he will go back and use drugs. That is how he was in the past. She also stated that she is 'prepared' for Anything as she is aware he is sick.
also requested that patient's girlfriend Janice not be allowed to visit him. She is afraid that she will sneak in drugs for him.
05/29/23- Spoke to - updated.
D/W Cards
Anticipated Discharge: Within 24 hours
Subjective/Interval History
-
Date of Service: May 30, 2023
Objective Data
-
Labs:
Laboratory Results
05/30/23
06:19
WBC 4.6 L
Hgb 14.8
Hct 43.4
Plt Count 226
Sodium 133 L
Potassium 3.9
Chloride 100
Carbon Dioxide 29
BUN 18
Creatinine 0.4 L
Glucose 99
Calcium 7.9 L
Vital Signs:
Vital Signs
Temp Pulse Resp BP Pulse Ox
98.1 F 96 18 106/59 97
05/30/23 07:56 05/30/23 09:32 05/30/23 08:59 05/30/23 09:32 05/30/23 08:00
I&O
05/29/23 05/30/23 05/31/23
06:59 06:59 06:59
Intake Total 890 / 890 1040 / 1040 120 / 120
Output Total 1350 / 1350 898.1 / 898.1 450 / 450
Balance -460 / -460 141.9 / 141.9 -330 / -330
--- NOTE | 2023-05-30 11:25 | PTCARENOTE ---
Patient received with assessment as noted. Continues awake and alert with a calm affect. MSAS score of 1 with a point given for heart rate. OOB to chair and transfers with 1 person minimal assist. NSR/Sinus tach. Afebrile. B/P's slightly hypotensive
but stable. Lungs decreased in the bases bilaterally otherwise CTA. Sao2 96% on room air. Appetite good. No bowel movement today. Voiding in the urinal ad leroy. Currently OOB to chair with call cho and telephone in reach. For transfer to Telemetry
when bed available. Will continue to monitor closely.
[2023-05-30 11:41] LABS: Glucose - Point of Care 118 mg/dl (70-99)
--- NOTE | 2023-05-30 16:22 | W.PN.UPDATE ---
Update Note
Progress Note Update
Pt seen, chart reviewed. Pt in upright position in bed, alert, oriented, calm, cooperative. Pt states he just became more awake today, doesn't have clear recall of earlier in his admission. Pt initially seen by Psychiatry for agitation, was
ordered Saphris prn, last given 05/28/23. Pt shows no agitation, offers no active complaints today, affect/mood stable. Pt states he plans to follow up with Suboxone maintenance tx after discharge; last prescribed September 2022 per PDMP.
Imp: TME, with agitation, resolved
Opioid Use d/o
Rec: Will discontinue prn Saphris
Agree with continuing Subutex; with plan for pt to seek Suboxone treatment after discharge
Psychiatry will sign off; please reconsult with any immediate concerns
[2023-05-30 17:01] LABS: Glucose - Point of Care 148 mg/dl (70-99)
[2023-05-30] MEDS: LOVENOX 40 MG SC (18:05)
[2023-05-30] MEDS: PROTONIX 40 MG PO (21:09)
[2023-05-30 21:30] LABS: Glucose - Point of Care 139 mg/dl (70-99)
--- NOTE | 2023-05-30 21:32 | PTCARENOTE ---
aaox3. nsr. vss. voiding rony urine in urinal. no needs at this time. report given to 4e rn. belongings packed. will transfer to 4e when room is clean.
[2023-05-30 22:58] LABS: Glucose - Point of Care 103 mg/dl (70-99)
[2023-05-31] MEDS: TYLENOL 650 MG PO (02:28)
[2023-05-31 03:32] VITALS: BP 109/64
[2023-05-31 03:33] VITALS: BP 123/67
[2023-05-31 07:30] VITALS: BP 99/65
--- NOTE | 2023-05-31 07:55 | W.PN.CD ---
Today's Communication / Plan
-
- increase coreg dose
echocard today
dc planning from Cardiol POV
Impression / Plan
-
Impression/Plan: 47 y/o male with DM, HTN and polysubstance abuse admitted with acute hypoxic respiratory failure and EKG changes, found to have bilateral PNA, severe non-ischemic cardiomyopathy and decompensated heart failure to the point of
cardiogenic shock.
#Acute hypoxic respiratory failure - continues to improve
-Multifactorial from PNA and acute HFrEF.
-CT with moderate bilateral lower lobe ground-glass opacities concerning for pneumonia versus aspiration.
-CXR shows some improvement and O2 requirement down to 2LNC.
-BCx = NGTD. Influenza negative. COVID negative.
-Pna resolved per CXR
#Non-ischemic myocardial injury
-In the setting of acute illness.
-Chest pain free.
-Troponin peaked at 15.800.
-recheck echo today (Tue)
#NICM
-Acute on chronic.
-Ventricle is severely dilated, suggesting some chronicity to this process.
-DDx includes Takotsubo from stress of withdrawal vs. EtOH/Polysubstance abuse vs. unrecovered viral cardiomyopathy vs. autoimmune process.
-Start GDMT as hemodynamics will tolerate - studies have shown carvedilol is safe and effective for chronic cocaine users
Venkata Eli, Juanito Lopez, Yung Cullenet al.�:�'Carvedilol among patients with heart failure with a cocaine-use disorder'.�J�Am Kavita Cardiol HF�2019;�7: 771.
-Continue lisinopril 2.5mg and dapagliflozin if affordable. and I will start coreg 3.125 BID - increase today(Tue) to 6.25BID
-Case management consult.
HFrEF (EF 15-20%)
-Possible Takotsubo CONTRACTOR FIELD HAULING with basal and apical sparing hypokinesis.- repeat echocard tomorrow(tue)
-Cardiac catheterization 05/23/23 without CAD.
-Hemodynamics show improvement in CI and filling pressures (interestingly, the patient has received one dose of diuretics).
-Repeat echocardiogram today(Tue) to assess for recovery (true septic dysfunction vs. acute decompensated from drug use?).
-Appears compensated.
#Abdominal pain with hematemesis
-Acute, stable.
-H/H stable.
-GI signed off.
#HTN
-Chronic, stable.
#Type II DM
-Chronic, stable.
-Hgba1c 6.3%.
-Adding dapgliflozin.
#Polysubstance abuse
-Chronic. EtOH + intravenous narcotic, cocaine, & benzodiazepines, last used fentanyl 05/22/23, averages 6�8 bags daily.
-Thiamine/folate given.
-Withdrawal protocol per Hospitalist seems completed
.
Subjective/Interval History:
patient awake, alert, comfortable
DATA:
CXR, 05/24/2023:
IMPRESSION:
There is mild coarsening of the interstitial markings in the left perihilar region extending into the mid and lower portions of the left lung most likely reflecting incomplete resolution of pulmonary edema seen on 05/23/2023 examination. Interstitial
pneumonia is less likely.
Cardiac Catheterization, 05/23/2023:CONCLUSIONS:
1.� Right dominant circulation with no coronary artery disease.
2.� Cardiogenic shock (LVEDP = 44 mmHg, PCWP = 44 mmHg, cardiac index 1.36 L/min/m�).
3.� Severe systolic cardiomyopathy with preservation of the basal anterior and inferior perrin with near akinesis of the entire remainder of the ventricle.� Left ventricular ejection fraction 10-15%.
TTE, 05/23/2023:
CONCLUSIONS
�Mildly dilated LV with severely reduced systolic function.
�Estimated EF of 15-20%.
�Possible Takotsubo CONTRACTOR FIELD HAULING with basal and apical sparing hypokinesis.
�No LVH.
�Normal right ventricular size and function.
�Aortic valve possible calcified RCC and mild regurgitation and no significant
�stenosis.
�Mild tricuspid regurgitation.
�Estimated pulmonary artery pressure of 40 mmHg, assuming a right atrial
�pressure of 3 mmHg.
�No prior for comparison.
CTA Abd/Pelvis, 05/23/2023:
IMPRESSION:
No evidence of aortic dissection.
Moderate bilateral lower lobe groundglass opacities concerning for pneumonia versus aspiration.
Moderate air in the SVC probably due to recent venous access.
Moderate fecal material throughout the colon.
Physical Exam
Vital Signs/Labs
Vital Signs
Temp Pulse Resp BP Pulse Ox
97.9 F 76 16 123/67 98
05/31/23 03:33 05/31/23 03:33 05/31/23 03:33 05/31/23 03:33 05/31/23 03:33
05/30/23 05/31/23 06/01/23
06:59 06:59 06:59
Actual Weight 129 lb 6.581 oz
05/30/23 06:19
PT 19.0 Sec (11.4-14.6) H 05/23/23 18:25
INR 1.57 05/23/23 18:25
APTT 31.3 Sec (23.4-35.0) 05/23/23 18:25
APTT Cancelled 05/23/23 18:25
Magnesium 2.1 mg/dl (1.6-2.3) 05/30/23 06:19
Physical Exam
Cardiovascular: Rhythm & rate is regular and Pedal edema is absent
Respiratory: Respiratory effort normal and Other (dull L base)
GI: Soft and Distention absent
Data Reviewed
-
Date of Service: May 31, 2023
EKG: Tracing Personally Visualized and interpreted
X-Ray/CT/US/MRI/NUC/PET: Report Reviewed by me
Labs: Labs Reviewed by me
[2023-05-31 08:07] LABS: Glucose - Point of Care 85 mg/dl (70-99)
[2023-05-31] MEDS: SUBUTEX 16 MG SL (08:43)
[2023-05-31] MEDS: VITAMIN D3 (cholecalciferol) 50 MCG PO (08:43)
[2023-05-31] MEDS: FARXIGA 10 MG PO (08:43)
[2023-05-31] MEDS: THIAMINE INJECTION 200 MG IV (08:44)
[2023-05-31] MEDS: PROTONIX 40 MG PO (08:44)
[2023-05-31] MEDS: FOLVITE 1 MG PO (08:44)
[2023-05-31] MEDS: FLUSH (NSS) 1 FLUSH IV (08:44)
[2023-05-31] MEDS: ZESTRIL 2.5 MG PO (08:56)
[2023-05-31] MEDS: COREG 6.25 MG PO (08:56)
[2023-05-31 10:45] VITALS: BMI 17.2
[2023-05-31 10:46] LABS: Blood Urea Nitrogen 15 mg/dl (9-20); Carbon Dioxide 28 mmol/L (22-30); Estimated Creatinine Clearance 122 ml/min; Glucose 113 mg/dl (70-99); Potassium 4.4 mmol/L (3.5-5.1); Sodium 133 mmol/L (135-145); eGFR > 60.00
[2023-05-31 10:54] LABS: Chloride 103 mmol/L (98-107)
[2023-05-31 11:15] VITALS: BP 104/66; PULSE 77; O2SAT 97
[2023-05-31 11:28] VITALS: BP 108/58; PULSE 71; O2SAT 100
--- NOTE | 2023-05-31 11:39 | CM ---
Addendum entered by Minnie العراقي 05/31/23 12:03:
CM received a return phone call from [facility] [employer] [place] [employer] to inform that when d/c order is placed that wanted subject will be transported back to the police dept by two officers
CM was provided the following phone number [phone] to call when applicable
CM was told it would take officers approximately 25 minutes to arrive to
PLAN; d/c to [place] Police custody
Original Note:
CM following re: d/c planning
Chart reviewed
Pt will likely be discharged from the hospital today and return to police custody
CM called the [facility] dispatch also the non-emergency number for the [place] police dept to inform of patient d/c
CM spoke with dispatcher #[id number] who collected demographic information on the patient and would relay to [place] officer of patient's release from the hospital
Pt medical status has greatly improved with no further n/v noted. Pt also weaned completely off of O2 and is in agreement with Suboxone tx post d/c
Psych met with patient at bedside and no additional tx options offered
This residential mortgage underwriter has requested a return call from [place] superintendent police to confirm the patient will be transported back to penitentiary
No additional d/c needs to note
PLAN; d/c to [place] police custody
[2023-05-31 11:53] LABS: Glucose - Point of Care 79 mg/dl (70-99)
--- NOTE | 2023-05-31 13:17 | W.PN.HOSP.TC ---
Addendum entered and electronically signed by Nona Mcelroy MD 05/31/23 13:28:
Echo 05/31/2023-mild to moderate concentric LVH. Ejection fraction 45 to 50%. Mild global hypokinesis. Increased right ventricular thickness normal RV function. Infiltrative cardiomyopathy should be included in the differential. Reviewed
cardiology. Okay for discharge
Patient needs to follow-up with cardiology
Discussed with case management and nursing
Total discharge time 38 minutes
Original Note:
Today's Communication/Plan
-
Await repeat echo-discussed with cardiology
As long as okay with cardiology will discharge the patient today.
Assessment / Plan
Assessment / Plan
CTA chest/abd/pelvis
No evidence of aortic dissection.
Moderate bilateral lower lobe ground-glass opacities concerning for pneumonia versus aspiration
Moderate air in the SVC probably due to recent venous access
Moderate fecal material throughout the colon
LHC
1.� Right dominant circulation with no coronary artery disease.
2.� Cardiogenic shock (LVEDP = 44 mmHg, PCWP = 44 mmHg, cardiac index 1.36 L/min/m�).
3.� Severe systolic cardiomyopathy with preservation of the basal anterior and inferior perrin with near akinesis of the entire remainder of the ventricle.� Left ventricular ejection fraction 10-15%.
Echo 05/23/2023-mildly dilated LV with severely reduced EF 15 to 20%. Possible Takotsubo cardiomyopathy with basal and apical sparing hypokinesis. Normal RV size and function. Aortic valve possible calcified, mild MR. Mild TR. Pulm data pressure
40 mmHg.

Cardiovascular system S1-S2 appreciated
Chest clear to auscultation
Abdomen soft and nontender
PATTERN RULER -Non focal
AAO3
#Nonischemic cardiomyopathy-Takotsubo type
New diagnosis of heart failure with reduced ejection fraction - no signs of exacerbation
Type II IN from IV cocaine use
-TTE in ER showing EF 15-20%
-CTA chest ruled out any dissection.
-Troponin max of 15.8, trended down
-LHC showed no clear CAD. Has low EF.
-Patient started on lisinopril low-dose and Farxiga
-Coreg started
-Off clonidine
-Looks euvolemic I do not think he needs diuresis at this point.
#Acute hypoxic respiratory failure - Improved
- Rpt CXR-stable
- Off O2 now, was requiring 15L through midflow.
#Nausea and vomiting -Resolved
�Upper GI bleed suspected Tiffanie Snowden tear
-Patient had coffee-ground emesis following transported to ER
-Continue on PPI
-Hbg remains stable, no repeat episode
-GI help appreciated
#IV drug use
�Opioid withdrawal
-UDS positive for cocaine and fentanyl
-Patient uses IV fentanyl.� Injects himself in neck veins.� Hal on both upper and lower extremity on exam as well
-Last used 48 hours prior to ER visit.
-Buprenorphine dose ordered
#Sepsis - POA
-Possible aspiration pneumonitis
-2 sets of blood culture neg.
-vanc/zosyn changed to cefepime. NOW off
#Hypokalemia-resolved
#Alcohol abuse
-Monitor for alcohol withdrawal with MSAS/Ativan protocol ordered
-Off Ativan
#IDDM
-Patient on Novolin 70/30 -10 units twice daily at home.� Compliance questionable
-A1c of 6.3
-May be got better when he lost weight
-Maintain on insulin sliding scale with further addition of Lantus if patient glucose elevated.
#Cachectic
-Severe PCM
- oral intake related
-'Barely eats and drinks' per .
#Acute toxic metabolic encephalopathy
-From withdrawal
-Now back to baseline.
#Hypernatremia
-Improved with hypotonic fluids
#Hepatitis C antibody reactive-patient needs to follow up on this and get treatment as outpatient if he has not had .
Per 'he has $18,000 medication- He has not taken it'
#Chron's Disease- Doesn't take meds
#Hypoalbuminemia
#Vit D Def -Replace
#DVT PPX - Lovenox
#Full code
Discussed with nursing at bedside
PT/OT
05/27/23-Called and spoke to patient's patient is noncompliant with medicines. He has chron's disease, hepatitis C for which she has medicine sitting at home which he would not take. She states that all he cares is about making money to get
drugs and get high. He was at [facility] for 6 months in 2021 with a 'blood infection'. As soon as he got home he went and got drugs and used it the same day. She understands that he is still very sick. We discussed about cardiomyopathy
and risk for wide-complex arrhythmias which can be fatal. She understands that taking medicines to get this heart muscle function better is his only chance. She is trying to make that daughter understand how sick he is. She is still thinks that
as soon as he gets home he will go back and use drugs. That is how he was in the past. She also stated that she is 'prepared' for Anything as she is aware he is sick.
also requested that patient's girlfriend Janice not be allowed to visit him. She is afraid that she will sneak in drugs for him.
05/29/23- Spoke to - updated.
D/W Cards
D/W Case management
D/W RN
Anticipated Discharge: Today
Subjective/Interval History
-
Date of Service: May 31, 2023
Objective Data
-
Labs:
Laboratory Results
05/31/23 05/31/23
08:20 09:51
Sodium Cancelled 133 L
Potassium Cancelled 4.4
Chloride Cancelled 103
Carbon Dioxide Cancelled 28
BUN Cancelled 15
Creatinine Cancelled 0.5 L
Glucose Cancelled 113 H
Calcium Cancelled 8.0 L
Vital Signs:
Vital Signs
Temp Pulse Resp BP Pulse Ox
98.3 F 85 18 99/65 99
05/31/23 07:30 05/31/23 08:56 05/31/23 07:30 05/31/23 08:56 05/31/23 10:53
I&O
05/30/23 05/31/23 06/01/23
06:59 06:59 06:59
Intake Total 1040 / 1040 1800 / 1800
Output Total 898.1 / 898.1 2550 / 2550
Balance 141.9 / 141.9 -750 / -750
--- NOTE | 2023-05-31 13:28 | W.DS.TRANS ---
Addendum entered and electronically signed by Nona Mcelroy MD 05/31/23 17:13:
Dictation- [id number]
Original Note:
DC Summary - [employer]
-
Discharge Instructions:
Discharge Diagnosis/Procedures Nonischemic cardiomyopathy, type II HI from
cocaine, Takotsubo cardiomyopathy, acute hypoxic
respiratory failure, aspiration pneumonia, IV
drug abuse, diet-controlled diabetes, severe
protein calorie malnutrition, toxic metabolic
encephalopathy, hepatitis C, Crohn's disease,
vitamin D deficiency
Diet Restrict fluids to 64 oz,Diabetic, Carb
Controlled,2 Gram Sodium
Activity As tolerated
Driving Restrictions Not until seen by your Dr
Specialty Instructions Weigh Daily
Stop these medications: stop clonidine
Instructions:
Stand-Alone Forms:
Changes to Home Medications: Yes
Discharge Medications:
DC Medications w/original date entered in [employer]
buprenorphine HCl 8 mg sublingual tablet 16 mg sublingual DAILY addiction #0 tabs 05/31/23
carvedilol 6.25 mg tablet 6.25 mg PO BID Heart disease/condition #60 tabs 05/31/23
cholecalciferol (vitamin D3) 50 mcg (2,000 unit) tablet 50 mcg PO DAILY defeciency #0 tabs 05/31/23
dapagliflozin propanediol 10 mg tablet (Farxiga) 10 mg PO DAILY Heart disease/condition #30 tabs 05/31/23
folic acid 1 mg tablet 1 mg PO DAILY Supplement #0 tabs 05/31/23
lisinopril 2.5 mg tablet 2.5 mg PO DAILY Heart disease/condition #60 tabs 05/31/23
pantoprazole 40 mg tablet,delayed release 40 mg PO DAILY Gastrointestinal issue #60 tabs 05/31/23
thiamine HCl (vitamin B1) 100 mg tablet 100 mg PO DAILY Supplement #30 tabs 05/31/23
Home Medication Changes
Clonidine, ibuprofen and insulin
all the above medicines are new discontinued.
Pending Results: No
[2023-05-31] MEDS: FLUZONE QUAD 2023-2024 SYRINGE 0.5 ML IM (13:54)
[2023-05-31 15:25] VITALS: BP 95/63
== END 2023-05-31 15:54 | DRG 871 ==
LOC: 4 EAST ACU 14:47
PROVIDERS: Internal Medicine Cardiovascular Disease; Nurse Practitioner Adult Health; Nurse Practitioner Gerontology; Nurse Practitioner Primary Care; Registered Nurse; ADMITTING PHYSICIAN Hospitalist; ATTENDING PHYSICIAN Hospitalist; CONSULT PHYSICIAN Internal Medicine Cardiovascular Disease; CONSULT PHYSICIAN Internal Medicine Critical Care Medicine; EMERGENCY PHYSICIAN Emergency Medicine; OTHER PHYSICIAN Internal Medicine Gastroenterology; OTHER PHYSICIAN Psychiatry & Neurology Psychiatry
PROC: B2151ZZ Fluoroscopy of Left Heart using Low Osmolar Contrast (ICD-10-PCS; 2023-05-23)
PROC: 02HP32Z Insertion of Monitoring Device into Pulmonary Trunk, Percutaneous Approach (ICD-10-PCS; 2023-05-23)
PROC: 4A023N8 Measurement of Cardiac Sampling and Pressure, Bilateral, Percutaneous Approach (ICD-10-PCS; 2023-05-23)
PROC: B2111ZZ Fluoroscopy of Multiple Coronary Arteries using Low Osmolar Contrast (ICD-10-PCS; 2023-05-23)
DX: A41.9 Sepsis, unspecified organism (principal); E43 Unspecified severe protein-calorie malnutrition; I21.A1 Myocardial infarction type 2; I50.23 Acute on chronic systolic (congestive) heart failure; J69.0 Pneumonitis due to inhalation of food and vomit; J96.01 Acute respiratory failure with hypoxia; G92.8 Other toxic encephalopathy; R57.0 Cardiogenic shock; F10.139 Alcohol abuse with withdrawal, unspecified; F11.23 Opioid dependence with withdrawal; R64 Cachexia; Z68.1 Body mass index [BMI] 19.9 or less, adult; I51.81 Takotsubo syndrome; E87.20 Acidosis, unspecified; I42.8 Other cardiomyopathies; K50.90 Crohn's disease, unspecified, without complications; E11.9 Type 2 diabetes mellitus without complications; Z79.4 Long term (current) use of insulin; F17.210 Nicotine dependence, cigarettes, uncomplicated; Z86.14 Personal history of Methicillin resistant Staphylococcus aureus infection; Z63.72 Alcoholism and drug addiction in family; Z81.1 Family history of alcohol abuse and dependence; B19.20 Unspecified viral hepatitis C without hepatic coma; E55.9 Vitamin D deficiency, unspecified; E87.6 Hypokalemia; Z11.52 Encounter for screening for COVID-19
CPT/HCPCS: 93308; 36600; 70551; 71045; 71046; 71275; 74174; 80048; 80053; 80202; 80306; 80307; 81003; 81015; 82077; 82306; 82607; 82805; 82962; 83036; 83605; 83690; 83735; 84100; 84145; 84484; 85025; 85027; 85610; 85730; 86704; 86705; 86706; 86708; 86803; 86850; 86900; 86901; 87040; 87086; 87340; 87502; 87641; 87811; 90686; 92526; 92610; 93005; 93306; 93460; 96374; 97162; 97166; 97530; 97535; 99291; 99292; C1769; C1894; G0008; J3480; Q9967